=== PATIENT | female | born 1965 | race Hispanic/Latino ===

== ENCOUNTER 2017-10-18 20:52 | Emergency (ER) | payer SELFPAY ==
[2017-10-18] MEDS ORDERED: LORazepam 2 MG/ML VIAL ONE (21:25)
[2017-10-18] MEDS ORDERED: LEVETIRACETAM 500 MG/5 ML VIAL IV ONE (21:25)
[2017-10-18] MEDS ORDERED: NA CHLORIDE 0.9% 100 ML IV ONE (21:27)
[2017-10-18 22:08] LABS: Glucose Level 176 mg/dL (65-120)
[2017-10-18 22:14] LABS: Bicarbonate 15 mEq/L (21-31); Potassium 3.2 mEq/L (3.6-5.0); Sodium Level 125 mEq/L (135-145)
[2017-10-18 22:21] LABS: BUN Blood Urea Nitrogen < 5 mg/dL (6-20)
[2017-10-18 22:24] LABS: Absolute Lymphocytes (CBC) 1.1 K/uL (0.7-4.9); Absolute Monocytes 0.6 K/uL (0.1-1.3); Absolute Neutrophil 4.9 K/uL (1.8-8.0); Basophils % 0.6 % (0-1.3); Eosinophils % 0.4 % (0-4.4); Hematocrit 32.4 % (36.0-45.0); Lymphocytes % 16.7 % (15.3-44.8); MCH 34.5 pg (27.0-35.0); MCV 101.2 fL (80-100); MPV 10.6 fL (7.6-11.3); Monocytes % 8.7 % (3.3-12.3); RBC Red Blood Cell Count 3.21 M/uL (3.86-4.86)
[2017-10-18 22:27] LABS: Blood Morphology Comment NOT SEEN (NOT SEEN); Platelet Estimate DECR; Urine White Blood Cell Casts OK
[2017-10-18] MEDS ORDERED: FENTANYL CITR 100 MCG/2 ML ONE (22:36)
--- NOTE | 2017-10-19 00:13 | EDPHYS ---
Physician Documentation [facility] Name: Sindy Palmer Age: 51 yrs Sex: Female : 1965 Arrival Date: 10/18/2017 Time: 21:04 Bed 24 Private MD: ED Physician Anam Foster HPI: 10/19 00:06 This 51 yrs old Female presents to ER via EMS with unknown complaint. gs 00:06 The patient presents with a history of multiple seizures, a total of 2. Character of gs seizure(s): Loss of consciousness: the patient experienced loss of consciousness, Motor activity: generalized, Incontinence: none. Seizure onset: just prior to arrival. Seizure Hx: Cause: alcohol abuse history. Associated injury: Head/face: lower lip, abrasion, laceration, Right upper extremity: anterior aspect of right shoulder. The patient has experienced similar episodes in the past, a few times. 00:07 Context: occurred at home, occurred while the patient was at rest, in bed. gs 00:07 says was sick last week and stopped drinking. 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 - Social history:: Smoking status: unknown. ROS: 10/19 00:06 All other systems are negative. gs Exam: 00:06 Head/Face: Normocephalic, atraumatic. Eyes: Pupils equal round and reactive to light, gs extra-ocular motions intact. Lids and lashes normal. Conjunctiva and sclera are non-icteric and not injected. Cornea within normal limits. Periorbital areas with no swelling, redness, or edema. Neck: Trachea midline, no thyromegaly or masses palpated, and no cervical lymphadenopathy. Supple, full range of motion without nuchal rigidity, or vertebral point tenderness. No Meningismus. Chest/axilla: Normal chest wall appearance and motion. Nontender with no deformity. No lesions are appreciated. Cardiovascular: Regular rate and rhythm with a normal S1 and S2. No gallops, murmurs, or rubs. Normal PMI, no JVD. No pulse deficits. Respiratory: Lungs have equal breath sounds bilaterally, clear to auscultation and percussion. No rales, rhonchi or wheezes noted. No increased work of breathing, no retractions or nasal flaring. Abdomen/GI: Soft, non-tender, with normal bowel sounds. No distension or tympany. No guarding or rebound. No evidence of tenderness throughout. Back: No spinal tenderness. No costovertebral tenderness. Full range of motion. 00:06 Constitutional: The patient appears awake, lethargic. 00:07 Skin: Warm, dry with normal turgor. Normal color with no rashes, no lesions, and no gs evidence of cellulitis. MS/ Extremity: Pulses equal, no cyanosis. Neurovascular intact. Full, normal range of motion. 00:07 Head/face: Exam is negative for acute changes, obvious evidence of injury or deformity. 00:07 Eyes: Sclera: icterus, is not appreciated. 00:07 ENT: Mouth: Lips: lacerated. 00:07 Musculoskeletal/extremity: Joints: the right shoulder displays painful range of motion, tenderness. 00:07 Neuro: Mentation: slow to respond, confused, post ictal, Cranial nerves: no acute changes, Motor: moves all fours, Sensation: no obvious gross deficits, seizure activity, is not displayed by the patient. Vital Signs: 10/18 21:15 BP 142 / 72; Pulse 106; Resp 16; Temp 98.6(O); Pulse Ox 100% on R/A; Weight 49.9 kg mb3 (R); Height 5 ft. 0 in. (152.40 cm); Pain 7/10; 22:20 BP 107 / 64; Pulse 101; Resp 17; Pulse Ox 99% ; mb3 10/19 00:07 BP 121 / 68; Pulse 108; Resp 16; Pulse Ox 97% on R/A; mb3 01:24 BP 117 / 66; Pulse 103; Resp 14; Pulse Ox 97% on R/A; mb3 02:02 BP 127 / 75; Pulse 101; Resp 14; Temp 98.6; Pulse Ox 98% on R/A; mb3 10/18 21:15 Body Mass Index 21.48 (49.90 kg, 152.40 cm) mb3 MDM: 10/18 21:11 Patient medically screened. gs 10/19 00:07 Differential diagnosis: cerebral vascular accident, cardiac arrhythmia, seizure, TIA. Data reviewed: vital signs, nurses notes. Response to treatment: the patient's symptoms have markedly improved after treatment, the patient's condition has returned to base line, and as a result, I will admit patient. 00:12 ED course: started feeling ill last week stopped drinking has vomiting and diarrhea gs better . 10/18 21:11 Order name: Basic Metabolic Panel; Complete Time: 22:29 10/18 21:11 Order name: CBC with Diff; Complete Time: 22:29 10/18 21:53 Order name: Chest Single View XRAY 10/18 21:53 Order name: Shoulder Right (2 View) XRAY 10/18 22:28 Order name: CBC Smear Scan; Complete Time: 22:29 EDMS 10/18 22:34 Order name: CT Head Brain wo Cont 10/18 21:11 Order name: Cardiac monitoring; Complete Time: 21:17 10/18 21:11 Order name: EKG - Nurse/Tech; Complete Time: 21:53 10/18 21:11 Order name: IV Saline Lock; Complete Time: 21:17 10/18 21:11 Order name: Labs collected and sent; Complete Time: 21:35 10/18 21:11 Order name: O2 Per Protocol; Complete Time: 21:17 10/18 21:11 Order name: O2 Sat Monitoring; Complete Time: 21:17 10/18 21:11 Order name: Urine Dipstick-Ancillary (obtain specimen) Administered Medications: 10/18 21:34 Drug: Keppra 1000 mg Route: IV; Rate: calculated rate; Site: left forearm; mb3 22:24 Follow up: Response: No adverse reaction; IV Status: Completed infusion mb3 21:34 Drug: Ativan 1 mg Route: IVP; Site: left forearm; mb3 22:24 Follow up: Response: No adverse reaction mb3 22:38 Drug: fentaNYL (PF) 50 mcg Route: IVP; Site: left forearm; mb3 10/19 00:07 Follow up: Response: No adverse reaction mb3 01:21 Drug: fentaNYL (PF) 50 mcg Route: IVP; Site: left forearm; mb3 Disposition: 10/19/17 02:[address] [facility]. Diagnosis are Alcohol dependence with withdrawal, Epilepsy and recurrent seizures, 2-part fracture of surgical neck of humerus. - Reason for transfer: Higher level of care. - Accepting physician is [facility]. - Condition is Stable. - Problem is new. - Symptoms have improved. Critical care time excluding procedures: 00:07 Critical care time: Bedside Care: 10 minutes, Consultation: 10 minutes, Family gs Intervention: 10 minutes. Total time: 30 minutes Signatures: Dispatcher [employer] EDAnam Sawant MD MD Christiano Zuniga RN RN mb3 Corrections: (The following items were deleted from the chart) 02:06 00:12 Hospitalization Ordered by Yvan Light MD for Inpatient Admission. Preliminary diagnosis is Epileptic seizures related to external causes, not intractable, without status epilepticus; Alcohol dependence with withdrawal. Bed requested for Telemetry/MedSurg (Inpatient). Status is Inpatient Admission. Condition is Stable. Problem is new. Symptoms have improved. UTI on Admission? No. 02:08 02:08 10/19/2017 02:[address] [facility]. Diagnosis is Alcohol dependence with withdrawal; Epilepsy and recurrent seizures. Reason for transfer: Higher level of care. Accepting physician is [facility]. Condition is Stable. Problem is new. Symptoms have improved. 02:53 02:08 10/19/2017 02:[address] [facility]. Diagnosis is mb3 Alcohol dependence with withdrawal; Epilepsy and recurrent seizures; 2-part fracture of surgical neck of humerus. Reason for transfer: Higher level of care. Accepting physician is [facility]. Condition is Stable. Problem is new. Symptoms have improved.
--- NOTE | 2017-10-19 00:13 | ER ---
Nurse's Notes [facility] Name: Sindy Palmer Age: 51 yrs Sex: Female : 1965 Arrival Date: 10/18/2017 Time: 21:04 Bed 24 Private MD: Diagnosis: Alcohol dependence with withdrawal;Epilepsy and recurrent seizures;2-part fracture of surgical neck of humerus Presentation: 10/18 21:04 Presenting complaint: EMS states: stated called for seizure, pt non communicative at mb3 scene. significant other at side, saying pt started jerking and got real stiff. During assessment pt had tonic clonic seizure, stiffened up for aprox 45 seconds then jerking for 1 minute. Transition of care: patient was not received from another setting of care. Onset of symptoms was October 18, 2017 at 20:10. Initial Sepsis Screen: Does the patient meet any 2 criteria? No. Patient's initial sepsis screen is negative. Does the patient have a suspected source of infection? No. Patient's initial sepsis screen is negative. Care prior to arrival: IV initiated. 20 GA, in the left forearm, Glucose check: 169. 21:04 Method Of Arrival: EMS: [facility] mb3 21:04 Acuity: ELICEER 3 mb3 Triage Assessment: 21:09 General: Appears distressed, uncomfortable, Behavior is cooperative, drowsy. Pain: mb3 Denies pain. Pain: Complains of pain in right arm. EENT: Sclera/Cornea yellow. Neuro: Seizure activity reported prior to arrival. Type of seizure: tonic-clonic seizure. Seizure lasted approximately 2 minutes. Patient is post-ictal at this time. Cardiovascular: Heart tones present Capillary refill < 3 seconds Pulses are all present. Respiratory: Airway is patent Respiratory effort is even, unlabored, Respiratory pattern is regular, symmetrical, Breath sounds are clear bilaterally. GI: No signs and/or symptoms were reported involving the gastrointestinal system. Abdomen is flat, Bowel sounds present X 4 quads. : No signs and/or symptoms were reported regarding the genitourinary system. Musculoskeletal: Capillary refill < 3 seconds, Range of motion: limited in right shoulder and right elbow Reports pain in right arm, shoulder and elbow. 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 - Social history:: Smoking status: unknown. Screenin:00 Abuse screen: Denies threats or abuse. Nutritional screening: No deficits noted. mb3 Tuberculosis screening: No symptoms or risk factors identified. Fall Risk Fall in past 12 months (25 points). Secondary diagnosis (15 points) IV access (20 points). Ambulatory Aid- None/Bed Rest/Nurse Assist (0 pts). Gait- Normal/Bed Rest/Wheelchair (0 pts) Mental Status- Oriented to own ability (0 pts). Total Candelaria Fall Scale indicates High Risk Score (45 or more points). Fall prevention measures have been instituted. Side Rails Up X 2 Placed Close to Nursing Station Frequent Obs/Assessments Occuring. Assessment: 20:51 General: see triage assessment. mb3 22:03 Reassessment: No changes from previously documented assessment. Patient and/or family mb3 updated on plan of care and expected duration. Pain level reassessed. Patient is alert, oriented x 3, equal unlabored respirations, skin warm/dry/pink. 23:09 Reassessment: No changes from previously documented assessment. Patient and/or family mb3 updated on plan of care and expected duration. Pain level reassessed. Patient is alert, oriented x 3, equal unlabored respirations, skin warm/dry/pink. 10/19 00:21 Reassessment: No changes from previously documented assessment. Patient and/or family mb3 updated on plan of care and expected duration. Pain level reassessed. Patient is alert, oriented x 3, equal unlabored respirations, skin warm/dry/pink. 01:32 Reassessment: Patient appears in no apparent distress at this time. No changes from mb3 previously documented assessment. Patient and/or family updated on plan of care and expected duration. Pain level reassessed. Patient is alert, oriented x 3, equal unlabored respirations, skin warm/dry/pink. 02:41 Reassessment: Report called to Freida Zarate RN at 0206, SBAR used, all questions mb3 answered. . Vital Signs: 10/18 21:15 BP 142 / 72; Pulse 106; Resp 16; Temp 98.6(O); Pulse Ox 100% on R/A; Weight 49.9 kg mb3 (R); Height 5 ft. 0 in. (152.40 cm); Pain 7/10; 22:20 BP 107 / 64; Pulse 101; Resp 17; Pulse Ox 99% ; mb3 10/19 00:07 BP 121 / 68; Pulse 108; Resp 16; Pulse Ox 97% on R/A; mb3 01:24 BP 117 / 66; Pulse 103; Resp 14; Pulse Ox 97% on R/A; mb3 02:02 BP 127 / 75; Pulse 101; Resp 14; Temp 98.6; Pulse Ox 98% on R/A; mb3 10/18 21:15 Body Mass Index 21.48 (49.90 kg, 152.40 cm) mb3 ED Course: 10/18 21:04 Patient arrived in ED. mb3 21:08 Triage completed. mb3 21:10 Anam Foster MD is Attending Physician. gs 21:33 Christiano Zuniga RN is Primary Nurse. mb3 22:01 Patient has correct armband on for positive identification. Placed in gown. Bed in low mb3 position. Call light in reach. Side rails up X 1. cafeteria monitor on. Pulse ox on. NIBP on. 22:02 Arm band placed on right wrist. mb3 22:08 Patient moved to radiology via stretcher. mh1 22:11 Patient moved back from radiology. mh1 22:12 X-ray completed. Patient tolerated procedure well. bb2 22:12 Chest Single View XRAY In Process Unspecified. EDMS 22:13 Shoulder Right (2 View) XRAY In Process Unspecified. EDMS 22:15 Inserted saline lock: 20 gauge in left forearm, using aseptic technique. mb3 22:44 Notified ED physician of a critical lab result(s). Platelet 60,000. ed1 22:52 CT completed. Patient moved back from CT. vm2 22:53 CT Head Brain wo Cont In Process Unspecified. EDMS 10/19 00:11 Yvan Light MD is Hospitalizing Provider. gs 01:26 Sling applied to. mb3 02:39 No provider procedures requiring assistance completed. Patient transferred, IV remains mb3 in place. Administered Medications: 10/18 21:34 Drug: Keppra 1000 mg Route: IV; Rate: calculated rate; Site: left forearm; mb3 22:24 Follow up: Response: No adverse reaction; IV Status: Completed infusion mb3 21:34 Drug: Ativan 1 mg Route: IVP; Site: left forearm; mb3 22:24 Follow up: Response: No adverse reaction mb3 22:38 Drug: fentaNYL (PF) 50 mcg Route: IVP; Site: left forearm; mb3 10/19 00:07 Follow up: Response: No adverse reaction mb3 01:21 Drug: fentaNYL (PF) 50 mcg Route: IVP; Site: left forearm; mb3 Outcome: 00:12 Decision to Hospitalize by Provider. gs 02:08 ER care complete, transfer ordered by . 02:16 Instructed on the need for transfer. mb3 02:39 Transferred by ground EMS to [facility], Transfer form mb3 completed. X-rays sent w/ patient. 02:39 Condition: stable 02:53 Patient left the ED. mb3 Signatures: Dispatcher [employer] EDMS Prachi Amin 1 Kiya Stone LVN LVN ed1 Tawana Gutierrez 2 Anam Foster MD MD Alethea Reyes 2 Christiano Zuniga, RN RN mb3
[2017-10-19] MEDS ORDERED: FENTANYL CITR 100 MCG/2 ML ONE (01:19)
[2017-10-19 02:59] VITALS: TEMP 98.6
[2017-10-19 03:04] VITALS: BP 127/75; O2SAT 98
--- NOTE | 2017-10-19 06:37 | RAD REPORT ---
EXAM DESCRIPTION: RAD - Chest Single View - 10/18/2017 10:14 pm CLINICAL HISTORY: Seizure, shortness of breath COMPARISON: None. TECHNIQUE: AP portable chest image was obtained 2200 hours . FINDINGS: Lungs are clear. Heart and vasculature are normal. No measurable pleural effusion and no p neumothorax. No gross bony abnormality seen. No acute aortic findings suspected. IMPRESSION: No acute cardiopulmonary process.
--- NOTE | 2017-10-19 06:38 | RAD REPORT ---
EXAM DESCRIPTION: Shoulder Right 2 View - 10/18/2017 10:13 pm CLINICAL HISTORY: Fall, seizure, shoulder pain A preliminary report was provided at the time of the study. COMPARISON: None. TECHNIQUE: Two views the right shoulder obtained both appearing to be internal rotation views. FINDINGS: Fracture of the proximal humerus is present. This is in proximity to the surgical neck. Th ere is likely a minimal amount of impaction. No dislocation of the humeral head. Pathologic etiology is not suspected. Clavicle and AC joint are normal. IMPRESSION: Proximal right humerus fracture with no measurable angulation or distraction.
--- NOTE | 2017-10-19 07:01 | RAD REPORT ---
EXAM DESCRIPTION: CT - Head Brain Wo Cont - 10/19/2017 2:04 am CLINICAL HISTORY: Seizure A preliminary written report was provided at the time of the study, and the report was reviewed prio r to final dictation. COMPARISON: CT head August 2014 TECHNIQUE: Axial 5 mm thick images of the head were obtained without IV contrast. All CT scans are performed using dose optimization technique as appropriate and may include automated exposure control or mA/KV adjustment according to patient size. FINDINGS: No intracranial hemorrhage, mass, edema or shift of mid-line structures. No acute cortical infarction. Early atrophy and chronic ischemic changes are evident. No abnormal extra-axial fluid co llections. Ventricles are in proportion to volume loss. Physiologic and arterial calcifications are s een. Intracranial findings are not significantly different from the comparison. Mastoid air cells and visualized portions of the paranasal sinuses are clear. No acute bony findings. IMPRESSION: No acute intracranial finding. The above detailed findings are similar to the 2015 study .
== END 2017-10-19 02:53 | disposition short-term general hospital (02) ==
LOC: ER 20:52
DX: F10.239 Alcohol dependence with withdrawal, unspecified (principal); S42.221A 2-part displaced fracture of surgical neck of right humerus, initial encounter for closed fracture; X58.XXXA Exposure to other specified factors, initial encounter; Y93.9 Activity, unspecified; Y92.009 Unspecified place in unspecified non-institutional (private) residence as the place of occurrence of the external cause
CPT/HCPCS: 36415; 70450; 71045; 80048; 85025; 96365; 96375; 99285; J1953; J3010

== ENCOUNTER 2018-04-01 17:28 | Emergency (ER) | payer SELFPAY ==
--- NOTE | 2018-04-01 18:24 | RAD REPORT ---
EXAM DESCRIPTION: CT - Head Brain Wo Cont - 04/01/2018 6:05 pm CLINICAL HISTORY: Confusion COMPARISON: October 2017 TECHNIQUE: Computed axial tomography of the head was obtained. IV contrast was not requested. All CT scans are performed using dose optimization technique as appropriate and may include automated exposure control or mA/KV adjustment according to patient size. FINDINGS: Some images are degraded by patient motion artifact. An intracranial bleed is not seen . The ventricles are normal in caliber. No extra-axial fluid collection is noted. Fluid within the sinuses/ mastoids is not seen. IMPRESSION: No gross intracranial abnormality is seen. If patient's symptoms persist MRI of the bra in would be recommended.
--- NOTE | 2018-04-01 18:25 | RAD REPORT ---
EXAM DESCRIPTION: Moris Single View04/01/2018 6:03 pm CLINICAL HISTORY: Chest pain COMPARISON: none FINDINGS: The lungs appear clear of acute infiltrate. The heart is normal size IMPRESSION: No acute abnormalities displayed
[2018-04-01 18:28] LABS: Protime INR 4.8
[2018-04-01] MEDS ORDERED: VITAMIN K (ADULT) 10 MG/ML ONE (18:38)
[2018-04-01 18:42] LABS: Absolute Lymphocytes (CBC) 0.7 K/uL (0.7-4.9); Absolute Monocytes 1.2 K/uL (0.1-1.3); Absolute Neutrophil 12.7 K/uL (1.8-8.0); Basophils % 0.6 % (0-1.3); Eosinophils % 0.6 % (0-4.4); Lymphocytes % 4.6 % (15.3-44.8); MCH 37.3 pg (27.0-35.0); MCV 101.3 fL (80-100); MPV 7.9 fL (7.6-11.3); Monocytes % 8.4 % (3.3-12.3); RBC Red Blood Cell Count 2.37 M/uL (3.86-4.86)
[2018-04-01 19:11] LABS: Bilirubin Direct > 16.0 mg/dL (0-0.2); Bilirubin Total > 25.0 mg/dL (0.2-1.0)
[2018-04-01] MEDS ORDERED: NA CHLORIDE 0.9% 1,000 ML ONE (19:16)
[2018-04-01] MEDS ORDERED: CEFTRIAXONE/SWI 1gm 1 GM/10 ML SYR ONE (19:16)
[2018-04-01 19:17] LABS: Potassium 3.8 mmol/L (3.5-5.1)
[2018-04-01 19:18] LABS: ALT/SGPT 70 U/L (12-78); AST/SGOT 180 U/L (15-37); BUN Blood Urea Nitrogen 64 mg/dL (7-18); Bicarbonate 18 mmol/L (21-32); Glucose Level 98 mg/dL (74-106)
[2018-04-01 19:19] LABS: Albumin 1.9 g/dL (3.4-5.0); Alkaline Phosphatase 180 U/L (45-117); Protein, Total 6.2 g/dL (6.4-8.2)
--- NOTE | 2018-04-01 19:19 | EDPHYS ---
Physician Documentation [facility] Name: Sindy Palmer Age: 52 yrs Sex: Female : 1965 Arrival Date: 04/01/2018 Time: 17:35 Bed 5 Private MD: ED Physician Anam Foster HPI: 04/01 18:11 This 52 yrs old Female presents to ER via EMS with complaints of General gs Weakness, Jaundice. 18:11 The patient presents to the emergency department with weakness of the entire body, gs generalized weakness. Onset: The symptoms/episode began/occurred 1 week(s) ago. Associated signs and symptoms: Pertinent positives: altered mental status, Pertinent negatives: fever. Severity of symptoms: At their worst the symptoms were severe in the emergency department the symptoms are unchanged. It is unknown whether or not the patient has had similar symptoms in the past. 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 - Social history:: Smoking status: unknown The patient lives at home. - Ebola Screening: : No symptoms or risks identified at this time. ROS: 18:11 Unable to obtain ROS due to patient's speech is incomprehensible. gs Exam: 18:11 Head/Face: Normocephalic, atraumatic. ENT: Nares patent. No nasal discharge, no gs septal abnormalities noted. Tympanic membranes are normal and external auditory canals are clear. Oropharynx with no redness, swelling, or masses, exudates, or evidence of obstruction, uvula midline. Mucous membranes moist. 18:11 Neck: Trachea midline, no thyromegaly or masses palpated, and no cervical lymphadenopathy. Supple, full range of motion without nuchal rigidity, or vertebral point tenderness. No Meningismus. Chest/axilla: Normal chest wall appearance and motion. Nontender with no deformity. No lesions are appreciated. Cardiovascular: Regular rate and rhythm with a normal S1 and S2. No gallops, murmurs, or rubs. Normal PMI, no JVD. No pulse deficits. Respiratory: Lungs have equal breath sounds bilaterally, clear to auscultation and percussion. No rales, rhonchi or wheezes noted. No increased work of breathing, no retractions or nasal flaring. 18:11 Back: No spinal tenderness. No costovertebral tenderness. Full range of motion. MS/ Extremity: Pulses equal, no cyanosis. Neurovascular intact. Full, normal range of motion. 18:11 Constitutional: The patient appears awake. 18:11 Eyes: Sclera: icterus, is present. 18:11 Abdomen/GI: Inspection: distension, that is mild. 18:11 Skin: Appearance: Color: jaundiced. 18:11 Neuro: Orientation: to person, place, Motor: moves all fours, Sensation: no obvious gross deficits. Vital Signs: 17:42 BP 121 / 75; Pulse 88; Resp 13 S; Temp 97.2(TE); Pulse Ox 100% on R/A; Pain 0/10; jl7 18:30 BP 119 / 62; Pulse 81; Resp 16; Pulse Ox 100% on R/A; sv 19:28 BP 112 / 68; Pulse 85; Resp 17; Pulse Ox 100% ; ea 20:08 BP 115 / 61; Pulse 83; Resp 18; Pulse Ox 100% ; ea 20:34 Temp 98(TE); ea MDM: 17:35 Patient medically screened. 19:17 Data reviewed: vital signs, nurses notes. Response to treatment: There is no appreciated change of the patient's symptoms at this time. 04/01 17:36 Order name: Basic Metabolic Panel 04/01 17:36 Order name: Blood Culture Adult (2) 04/01 17:36 Order name: CBC with Diff 04/01 17:36 Order name: Lactate; Complete Time: 18:48 04/01 17:36 Order name: LFT's 04/01 17:36 Order name: Lipase 04/01 17:36 Order name: Procalcitonin 04/01 17:36 Order name: Protime (+inr); Complete Time: 18:32 04/01 17:36 Order name: Urine Microscopic Only 04/01 17:36 Order name: AMMONIA; Complete Time: 18:37 04/01 18:28 Order name: Type And Screen 04/01 18:34 Order name: Urine Dipstick--Ancillary (enter results) nm 04/01 18:41 Order name: Tylenol Level 04/01 18:41 Order name: Acetaminophen Level EDMN 04/01 17:36 Order name: Chest Single View XRAY; Complete Time: 18:27 04/01 17:36 Order name: Accucheck; Complete Time: 17:49 gs 04/01 17:36 Order name: Cardiac monitoring; Complete Time: 17:50 04/01 17:36 Order name: EKG - Nurse/Tech; Complete Time: 17:50 04/01 17:36 Order name: IV Saline Lock - Large Bore; Complete Time: 17:50 04/01 17:36 Order name: Labs collected and sent; Complete Time: 17:50 04/01 17:36 Order name: CT Head Brain wo Cont; Complete Time: 18:27 04/01 18:42 Order name: Occult Blood--Ancillary 04/01 18:48 Order name: Manual Differential EDMN 04/01 18:51 Order name: Hepatitis Panel 04/01 18:59 Order name: EKG; Complete Time: 18:59 sv 04/01 19:16 Order name: ABG 04/01 19:50 Order name: Urine Culture EDMN 04/01 17:36 Order name: O2 Per Protocol; Complete Time: 17:49 04/01 17:36 Order name: O2 Sat Monitoring; Complete Time: 17:49 04/01 17:36 Order name: Urine Dipstick-Ancillary (obtain specimen); Complete Time: 18:30 04/01 18:30 Order name: Straight Cath - Urine; Complete Time: 18:30 aa5 Administered Medications: 18:35 Drug: Vitamin K1 10 mg Route: Sub-Q; Site: left upper arm; sv 18:42 Follow up: Response: No adverse reaction sv 19:17 Drug: NS 0.9% 1000 ml Route: IV; Rate: 1 bolus; Site: left hand; jd3 20:35 Follow up: Response: No adverse reaction; IV Status: Completed infusion; IV Intake: ea 1000ml 19:17 Drug: Rocephin - (cefTRIAXone) 1 grams Route: IVPB; Infused Over: 30 mins; Site: left jd3 hand; 20:35 Follow up: Response: No adverse reaction; IV Status: Completed infusion ea Point of Care Testing: Blood Glucose: 17:47 Blood Glucose: 125 mg/dL; jl7 Guaiac: 18:30 Stool Guaiac: Positive; Stool Hemoccult Control: Pass; sv 18:[address] Kristin adames Ranges: Critical Glucose Levels:Adult <50 mg/dl or >400 mg/dl <40 mg/dl or >180 mg/dl Disposition: 04/01/18 19:18 Transfer ordered to [facility]. Diagnosis is Acute and subacute hepatic failure without coma. - Reason for transfer: Higher level of care. - Accepting physician is omranian. - Condition is Stable. - Problem is new. - Symptoms are unchanged. Signatures: Dispatcher [employer] Aurelia Noel, RN RN Lizbet Arroyo, RN RN aa5 Twila Tristan RN RN jl7 Ethel Jung RN RN Anam Oseguera MD MD gs Davies, Jonathon, RN RN jd3 Corrections: (The following items were deleted from the chart) 21:01 19:18 04/01/2018 19:18 Transfer ordered to [facility]. Diagnosis is ea Acute and subacute hepatic failure without coma. Reason for transfer: Higher level of care. Accepting physician is omranian. Condition is Stable. Problem is new. Symptoms are unchanged. gs
--- NOTE | 2018-04-01 19:19 | ER ---
Nurse's Notes [facility] Name: Sindy Palmer Age: 52 yrs Sex: Female : 1965 Arrival Date: 04/01/2018 Time: 17:35 Bed 5 Private MD: Diagnosis: Acute and subacute hepatic failure without coma Presentation: 04/01 17:39 Presenting complaint: EMS states: She lives at home by herself, son called 911 because jl7 she hasn't been feeling good for 2 months. Transition of care: patient was not received from another setting of care. Onset of symptoms is unknown. Risk Assessment: Do you want to hurt yourself or someone else? Patient reports no desire to harm self or others. Initial Sepsis Screen: Does the patient meet any 2 criteria? No. Patient's initial sepsis screen is negative. Does the patient have a suspected source of infection? No. Patient's initial sepsis screen is negative. Care prior to arrival: Medication(s) given: Normal saline infusion, 500 mL, IV initiated. 20 GA, in the right antecubital area. 17:39 Method Of Arrival: EMS: [facility] jl7 17:39 Acuity: ELIECER 2 jl7 Triage Assessment: 17:42 General: Appears ill, Behavior is cooperative, drowsy. Pain: Denies pain. EENT: No jl7 signs and/or symptoms were reported regarding the EENT system. Neuro: Level of Consciousness is obeys commands, confused, lethargic, Oriented to person, place. Cardiovascular: Patient's skin is warm and dry. Respiratory: Airway is patent Respiratory effort is even, unlabored, Respiratory pattern is regular, symmetrical. GI: No signs and/or symptoms were reported involving the gastrointestinal system. : No signs and/or symptoms were reported regarding the genitourinary system. Derm: Skin is jaundiced. 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 - Social history:: Smoking status: unknown The patient lives at home. - Ebola Screening: : No symptoms or risks identified at this time. Screenin:45 Abuse screen: Denies threats or abuse. Denies injuries from another. Tuberculosis jl7 screening: No symptoms or risk factors identified. Fall Risk Secondary diagnosis (15 points) seizures, IV access (20 points). Mental Status- Overestimates/Forgets Limitations (15 pts.). Total Candelaria Fall Scale indicates High Risk Score (45 or more points). Fall prevention measures have been instituted. Side Rails Up X 2 Placed Close to Nursing Station Frequent Obs/Assessments Occuring Family Present and informed to notify staff if the need to leave the bedside As available patient and family educated on Fall Prevention Program and Strategies. 18:37 Nutritional screening: No deficits noted. sv Assessment: 17:45 General: See triage assessment. jl7 18:30 Reassessment: Pt cleaned of incontinence and clean brief placed. sv 18:38 General: Appears in no apparent distress. comfortable, Behavior is calm, cooperative. sv Pain: Denies pain. Neuro: Level of Consciousness is obeys commands, lethargic, Oriented to person, place, Moves all extremities. Respiratory: Respiratory effort is even, unlabored, Respiratory pattern is regular, symmetrical. GI: Stools are reported to be loose, black mucous. : Urine is dark yellow. Derm: Skin is icteric, jaundiced. 19:25 General: Appears in no apparent distress. comfortable, Behavior is calm, cooperative. ea Pain: Denies pain. Neuro: Level of Consciousness is obeys commands, lethargic, Oriented to person, place. Cardiovascular: Heart tones S1 S2 present Patient's skin is warm and dry. Respiratory: Airway is patent Respiratory effort is even, unlabored, Respiratory pattern is regular, symmetrical, Breath sounds are clear bilaterally. GI: Abdomen is distended, noted to have ascites, bruised on right upper quadrant, left upper quadrant, right lower quadrant and left lower quadrant Bowel sounds present X 4 quads. Derm: Skin is jaundiced. Musculoskeletal: Circulation, motion, and sensation intact. 20:03 Reassessment: Report called to Jaclyn ENCISO at [facility]. ea 20:33 Reassessment: Patient and/or family updated on plan of care and expected duration. Pain ea level reassessed. Patient is alert, oriented x 3, equal unlabored respirations, skin warm/dry/pink. [facility] at facility for transport. 20:40 Reassessment: Patient and/or family updated on plan of care and expected duration. Pain ea level reassessed. Patient is alert, oriented x 3, equal unlabored respirations, skin warm/dry/pink. Report given to [facility]. Pt left with [facility] per stretcher. Vital Signs: 17:42 BP 121 / 75; Pulse 88; Resp 13 S; Temp 97.2(TE); Pulse Ox 100% on R/A; Pain 0/10; jl7 18:30 BP 119 / 62; Pulse 81; Resp 16; Pulse Ox 100% on R/A; sv 19:28 BP 112 / 68; Pulse 85; Resp 17; Pulse Ox 100% ; ea 20:08 BP 115 / 61; Pulse 83; Resp 18; Pulse Ox 100% ; ea 20:34 Temp 98(TE); ea ED Course: 17:35 Patient arrived in ED. aa5 17:35 Anam Foster MD is Attending Physician. gs 17:35 Missed attempt(s): 22 gauge in left antecubital area. Bleeding controlled, band aid sv applied, catheter tip intact. 17:38 Twila Tristan, RN is Primary Nurse. jl7 17:40 Triage completed. jl7 17:40 Initial lab(s) drawn, by ne, sent to lab. Inserted saline lock: 22 gauge in left hand, sv using aseptic technique. Blood collected. Flushed left hand with 5 ml normal saline. 17:42 Arm band placed on right wrist. jl7 17:45 Patient has correct armband on for positive identification. Placed in gown. Bed in low jl7 position. Call light in reach. Side rails up X2. nuclear monitoring technician on. Pulse ox on. NIBP on. Warm blanket given. 17:45 Maintain EMS IV. Dressing intact. Good blood return noted. Site clean \T\ dry. Gauge \T\ jl 7 site: 20 right AC. 18:03 Chest Single View XRAY In Process Unspecified. EDMS 18:03 CT completed. Patient moved to CT via stretcher. Patient moved back from CT. cw1 18:04 CT Head Brain wo Cont In Process Unspecified. EDMS 18:12 Patient moved back from CT. sv 18:18 Primary Nurse role handed off by Twila Tristan, RN sv 18:18 Aurelia Myles, ZARIA is Primary Nurse. sv 18:30 Straight cath inserted, using sterile technique, 16 Fr. Specimen obtained. Returned aa5 dyana urine. Patient tolerated well. 18:42 Occult Blood--Ancillary Sent. sv 18:43 Tylenol Level Sent. sv 18:48 T\T\S collected, blood band applied to patient. jb1 19:05 Report given to Ethel ENCISO and Bharathi ENCISO. sv 19:06 Primary Nurse role handed off by Aurelia Myles RN sv 19:08 EKG done, by ED staff, reviewed by Anam Foster MD. jb1 19:25 Ethel Jung, RN is Primary Nurse. ea 19:31 No provider procedures requiring assistance completed. Patient transferred, IV remains ea in place. Administered Medications: 18:35 Drug: Vitamin K1 10 mg Route: Sub-Q; Site: left upper arm; sv 18:42 Follow up: Response: No adverse reaction sv 19:17 Drug: NS 0.9% 1000 ml Route: IV; Rate: 1 bolus; Site: left hand; jd3 20:35 Follow up: Response: No adverse reaction; IV Status: Completed infusion; IV Intake: ea 1000ml 19:17 Drug: Rocephin - (cefTRIAXone) 1 grams Route: IVPB; Infused Over: 30 mins; Site: left jd3 hand; 20:35 Follow up: Response: No adverse reaction; IV Status: Completed infusion ea Point of Care Testing: Blood Glucose: 17:47 Blood Glucose: 125 mg/dL; jl7 Guaiac: 18:30 Stool Guaiac: Positive; Stool Hemoccult Control: Pass; sv 18:[address] Foster sv Ranges: Intake: 20:35 IV: 1000ml; Total: 1000ml. ea Outcome: 19:18 ER care complete, transfer ordered by . 19:20 Instructed on the need for transfer. ea 20:40 Transferred by ground EMS to [facility], Transfer form completed. ea 20:40 Condition: stable 21:01 Patient left the ED. ea Signatures: Dispatcher [employer] EDMS Buddy Granado [email or web address] Aurelia Myles, Lizbet Murray RN RN RN [email or web address] Tuyet Howell Jahala, RN RN jl7 Ethel Jung RN RN ea Starr, Gregory, MD MD gs Davies, Jonathon, RN RN jd3
[2018-04-01 19:20] LABS: Lipase 830 U/L (73-393)
[2018-04-01 19:22] LABS: Sodium Level 113 mmol/L (136-145)
[2018-04-01 19:34] LABS: Platelet Estimate DECR
[2018-04-01 19:35] LABS: Blood Morphology Comment NOTED (NOT SEEN); Hypochromasia 1+; Ovalocytes 1+; Poikilocytosis 1+
[2018-04-01 19:48] LABS: Urine Bacteria 20-50 /HPF (<20); Urine Culture Reflex Order REFLEXED; Urine RBC NONE SEEN /HPF (NONE SEEN)
[2018-04-01 19:49] LABS: Urine Amorphous Sediment 1+ /HPF (NONE SEEN)
[2018-04-01 20:36] LABS: Arterial Blood Carboxyhemoglob 1.2 % (0-1.5); Blood Gas Oxyhemoglobin 96.2 % (94-97); Blood O2 Saturation 97.4 % (92-98.5)
[2018-04-01 20:58] LABS: Urine Blood TRACE (NEG); Urine Glucose TRACE (NEG); Urine Protein NEGATIVE (NEG); Urine Specific Gravity 1.015 (1.005-1.030); Urine pH 5.5 (5.0-7.0)
[2018-04-01 21:05] VITALS: O2SAT 100
[2018-04-01 21:09] VITALS: BP 115/61
[2018-04-01 21:10] VITALS: TEMP 98
--- NOTE | 2018-04-02 19:15 | EKG ---
Test Date: 2018-04-01 Test Time: 19:06:06 Garden Consultant: LUCINA MEASUREMENT RESULTS: Intervals: Rate: 84 WA: 188 QRSD: 98 QT: 386 QTc: 456 Pixley: P: 41 WA: 188 QRS: 36 T: 34 INTERPRETIVE STATEMENTS: Normal sinus rhythm Cannot rule out Anterior infarct, age undetermined Abnormal ECG Compared to ECG 08/06/2014 22:57:45 Myocardial infarct finding now present Sinus tachycardia no longer present Electronically Signed On 04-02-18 19:14:48 CDT by Rg Olvera
[2018-04-05 19:22] LABS: HBsAG Nonreactive (Nonreactive); Hepatitis A IgM Antibody Nonreactive
== END 2018-04-01 21:01 | disposition short-term general hospital (02) ==
LOC: ER 17:28
DX: K72.00 Acute and subacute hepatic failure without coma (principal); G40.909 Epilepsy, unspecified, not intractable, without status epilepticus
CPT/HCPCS: 36415; 51702; 70450; 71045; 80048; 80074; 80076; 80329; 81003; 81015; 82140; 82805; 82962; 83605; 83690; 84145; 85025; 85610; 86850; 86900; 86901; 87040; 87077; 87086; 87088; 87186; 93005; 96365; 96372; 99285; J0696; J3430; J7030

== ENCOUNTER 2020-12-08 16:32 | Emergency (ER) | payer SELFPAY ==
--- OUTSIDE RECORDS SUMMARY | 2020-12-08 16:51 | XMS REPORT | Continuity of Care Document ---
:1965 Author Organization [facility] t Address [address] [place] [address] Care Team Providers Name Role Phone OMRANIAN Attending Clinician Unavailable OMRANIAN Admitting Clinician Unavailable Problems Condition Condition Condition Status Onset Resolution Last Treating Co mments Source Name Details Category Date Date Treatment Clinician Date Alcoholic Alcoholic Disease Active 2017-[address] [facility] cirrhosis cirrhosis 1- [facility] - of liver of liver 00:00: Medica l with with 00 [place] ascites ascites Upper GI Upper GI Disease Active 2017[facility]10 [facility] - [facility]: Medical 00 [place] EILEEN (acute EILEEN (acute Disease Active 2017-[address] kidney kidney 06-10 [facility] - injury) injury) 00:00: Medical 00 [place] CKD CKD Disease Active 2017-[address] [facility] (chronic (chronic 1 [facility] - kidney kidney 00:00: Medical disease) disease) 00 Center stage 5, stage 5, GFR less GFR less than 15 than 15 ml/min ml/min Acute Acute Disease Active 2017-[address] [facility] blood loss blood loss 1-05 [facility] - anemia anemia 00:00: Medical 00 [place] Hepatic Hepatic Disease Active 2017-[address] [facility] encephalop encephalop 1-05 [facility] - athy athy 00:00: Medical 00 [place] 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 Social History Social Habit Start Date Stop Date Quantity Comments Source History [facility] - [facility] Std Drinks Medica l Center History [facility] SHRADDHA [facility]a [facility] - Alcohol Binge Medical Willy ter Sex Assigned At [facility] Alcohol intake 2018-04-05 2018-04-05 Current drinker SHRADDHA elise [facility] - 00:00:00 00:00:00 of alcohol Medical Center (finding) History [facility] 2018-04-02 2018-04-02 5 SHRADDHA [facility]onseca [facility] - Alcohol Frequency 00:00:00 00:00:00 Medical Center Alcohol Comment 2018-04-02 2018-04-02 Patient SHRADDHA Burt kes - 00:00:00 00:00:00 Medical Center Medications This patient has no known medications. Procedures This patient has no known procedures. Plan of Care Planned Activity Planned Date Details Comments Source Future Scheduled 2020-02-[address] [facility] - Test 00:00:00 (#1) [code = [facility] INFLUENZA VACCINE (#1)] Future Scheduled 2011-12-[address] [facility] - Test 00:00:00 (procedure) [code = [facility] [id number]] Future Scheduled 1987-12-[address] [facility] - Test 00:00:00 malignant neoplasm Medical C enter of cervix (procedure) [code = [id number]] Future Scheduled [address] [facility] - Test 00:00:00 malignant neoplasm Medical C enter of breast (procedure) [code = [id number]] Future Scheduled [address] [facility] - Test 00:00:00 malignant neoplasm Medical C enter of colon (procedure) [code = [id number]] Results Test Description Test Time Test Comments Results Result Comments Source POCT-GLUCOSE METER 2018-04-19 12:02:00 Test Item Value Reference Range Interpretation Comme nts POC-GLUCOSE METER (BEAKER) (test 176 mg/dL 70-110 H TESTED AT [facility] [address] [facility] code = 1538) [facility] 7703 0 POCT-GLUCOSE [id number] 07:50:00 Test Item Value Reference Range Interpretation Comments POC-GLUCOSE METER 169 mg/dL 70-110 H TESTED AT [facility] [address] (BEAKER) (test code = [place] 1538) [id number] COMPREHENSIVE METABOLIC [id number] 06:18:00 Test Item Value Reference Range Interpretation Comments TOTAL PROTEIN 5.4 gm/dL 6.0-8.3 L (BEAKER) (test code = 770) ALBUMIN (BEAKER) 3.0 g/dL 3.5-5.0 L (test code = 1145) ALKALINE PHOSPHATASE 136 U/L 40-150 (BEAKER) (test code = 346) BILIRUBIN TOTAL 26.8 mg/dL 0.2-1.2 H (BEAKER) (test code = 377) SODIUM (BEAKER) 130 meq/L 136-145 L (test code = 381) POTASSIUM (BEAKER) 3.5 meq/L 3.5-5.1 (test code = 379) CHLORIDE (BEAKER) 94 meq/L 98-107 L (test code = 382) CO2 (BEAKER) (test 27 meq/L 22-29 code = 355) BLOOD UREA NITROGEN 86 mg/dL 7-21 H (BEAKER) (test code = 354) CREATININE (BEAKER) 1.54 mg/dL 0.57-1.25 H (test code = 358) GLUCOSE RANDOM 117 mg/dL 70-105 H (BEAKER) (test code = 652) CALCIUM (BEAKER) 8.7 mg/dL 8.4-10.2 (test code = 697) AST (SGOT) (BEAKER) 97 U/L 5-34 H (test code = 353) ALT (SGPT) (BEAKER) 79 U/L 6-55 H (test code = 347) EGFR (BEAKER) (test mL/min/1.73 INSUFFIC IENT code = 1092) sq m CLINICAL DATA T O CALCULATE ESTIM ATED GFR. Specimen markedly ictericPROTHROMBIN [id number] 06:03:00 Test Item Value Reference Range Interpretation Comments PROTIME (BEAKER) (test code = 24.8 seconds 11.7-14.7 H 759) INR (BEAKER) (test code = 370) 2.2 <=5.9 RECOMMENDED COUMADIN/WARFARIN INR THERAPY RANGESSTANDARD DOSE: 2.0 - 3.0 Includes: PROPHYLAXIS forvenous thrombosis, systemic embolization; TREATMENT for venous thrombosis and/or pulmonary embolus.HIGH RISK: Target INR is 2.5-3.5 for patients with mechanical heart valves.CBC W/PLT COUNT & AUTO DIFFERENTIAL 2018-04-19 05:58:00 Test Item Value Reference Range Interpretation Comments WHITE BLOOD CELL COUNT (BEAKER) 8.4 K/ L 3.5-10.5 (test code = 775) RED BLOOD CELL COUNT (BEAKER) 2.52 M/ L 3.93-5.22 L (test code = 761) HEMOGLOBIN (BEAKER) (test code = 8.3 GM/DL 11.2-15.7 L 410) HEMATOCRIT (BEAKER) (test code = 23.2 % 34.1-44.9 L 411) MEAN CORPUSCULAR VOLUME (BEAKER) 92.1 fL 79.4-94.8 (test code = 753) MEAN CORPUSCULAR HEMOGLOBIN 32.9 pg 25.6-32.2 H (BEAKER) (test code = 751) MEAN CORPUSCULAR HEMOGLOBIN CONC 35.8 GM/DL 32.2-35.5 H (BEAKER) (test code = 752) RED CELL DISTRIBUTION WIDTH 21.3 % 11.7-14.4 H (BEAKER) (test code = 412) PLATELET COUNT (BEAKER) (test code 64 K/CU MM 150-450 L = 756) MEAN PLATELET VOLUME (BEAKER) 11.6 fL 9.4-12.3 (test code = 754) NUCLEATED RED BLOOD CELLS (BEAKER) 0 /100 WBC 0-0 (test code = 413) NEUTROPHILS RELATIVE PERCENT 73 % (BEAKER) (test code = 429) LYMPHOCYTES RELATIVE PERCENT 9 % (BEAKER) (test code = 430) MONOCYTES RELATIVE PERCENT 13 % (BEAKER) (test code = 431) EOSINOPHILS RELATIVE PERCENT 4 % (BEAKER) (test code = 432) BASOPHILS RELATIVE PERCENT 0 % (BEAKER) (test code = 437) NEUTROPHILS ABSOLUTE COUNT 6.14 K/ L 1.56-6.13 H (BEAKER) (test code = 670) LYMPHOCYTES ABSOLUTE COUNT 0.75 K/ L 1.18-3.74 L (BEAKER) (test code = 414) MONOCYTES ABSOLUTE COUNT (BEAKER) 1.05 K/ L 0.24-0.36 H (test code = 415) EOSINOPHILS ABSOLUTE COUNT 0.33 K/ L 0.04-0.36 (BEAKER) (test code = 416) BASOPHILS ABSOLUTE COUNT (BEAKER) 0.01 K/ L 0.01-0.08 (test code = 417) IMMATURE GRANULOCYTES-RELATIVE 1 % 0-1 PERCENT (BEAKER) (test code = 2801) POCT-GLUCOSE [id number] 22:13:00 Test Item Value Reference Range Interpretation Comments POC-GLUCOSE METER 177 mg/dL 70-110 H TESTED AT [place] [address] [facility] (test code = [facility] Karen [facility] 1538) [id number] POCT-GLUCOSE [id number] 12:01:00 Test Item Value Reference Range Interpretation Comments POC-GLUCOSE METER 146 mg/dL 70-110 H TESTED AT [place] [address] ([facility]) (test code = [facility] Karen [facility] 1538) [id number] POCT-GLUCOSE [id number] 08:08:00 Test Item Value Reference Range Interpretation Comments POC-GLUCOSE METER 127 mg/dL 70-110 H TESTED AT [place] [address] ([facility]) (test code = [facility] 1538) [id number] COMPREHENSIVE METABOLIC [id number] 07:14:00 Test Item Value Reference Range Interpretation Comments TOTAL PROTEIN 5.7 gm/dL 6.0-8.3 L Specimen sligh tly (BEAKER) (test code hemolyze d = 770) ALBUMIN (BEAKER) 3.1 g/dL 3.5-5.0 L Specimen sl ightly (test code = 1145) hemolyzed ALKALINE PHOSPHATASE 155 U/L 40-150 H (BEAKER) (test code = 346) BILIRUBIN TOTAL 25.1 mg/dL 0.2-1.2 H Specimen sli ghtly (BEAKER) (test code hemolyze d = 377) SODIUM (BEAKER) 132 meq/L 136-145 L (test code = 381) POTASSIUM (BEAKER) 3.9 meq/L 3.5-5.1 Specimen slightly (test code = 379) hemolyzed CHLORIDE (BEAKER) 95 meq/L 98-107 L (test code = 382) CO2 (BEAKER) (test 25 meq/L 22-29 code = 355) BLOOD UREA NITROGEN 91 mg/dL 7-21 H (BEAKER) (test code = 354) CREATININE (BEAKER) 1.51 mg/dL 0.57-1.25 H Specimen slightly (test code = 358) hemolyzed GLUCOSE RANDOM 112 mg/dL 70-105 H (BEAKER) (test code = 652) CALCIUM (BEAKER) 8.9 mg/dL 8.4-10.2 (test code = 697) AST (SGOT) (BEAKER) 119 U/L 5-34 H Specimen slightly (test code = 353) hemolyzed ALT (SGPT) (BEAKER) 92 U/L 6-55 H Specimen slightly (test code = 347) hemolyzed EGFR (BEAKER) (test mL/min/1.73 INSUFFIC IENT code = 1092) sq m CLINICAL DATA T O CALCULATE ESTIM ATED GFR. Specimen markedly ictericPROTHROMBIN [id number] 06:19:00 Test Item Value Reference Range Interpretation Comments PROTIME (BEAKER) (test code = 24.2 seconds 11.7-14.7 H 759) INR (BEAKER) (test code = 370) 2.2 <=5.9 RECOMMENDED COUMADIN/WARFARIN INR THERAPY RANGESSTANDARD DOSE: 2.0 - 3.0 Includes: PROPHYLAXIS forvenous thrombosis, systemic embolization; TREATMENT for venous thrombosis and/or pulmonary embolus.HIGH RISK: Target INR is 2.5-3.5 for patients with mechanical heart valves.CBC W/PLT COUNT & AUTO DIFFERENTIAL 2018-04-18 06:15:00 Test Item Value Reference Range Interpretation Comments WHITE BLOOD CELL COUNT (BEAKER) 9.8 K/ L 3.5-10.5 (test code = 775) RED BLOOD CELL COUNT (BEAKER) 2.73 M/ L 3.93-5.22 L (test code = 761) HEMOGLOBIN (BEAKER) (test code = 8.8 GM/DL 11.2-15.7 L 410) HEMATOCRIT (BEAKER) (test code = 25.1 % 34.1-44.9 L 411) MEAN CORPUSCULAR VOLUME (BEAKER) 91.9 fL 79.4-94.8 (test code = 753) MEAN CORPUSCULAR HEMOGLOBIN 32.2 pg 25.6-32.2 (BEAKER) (test code = 751) MEAN CORPUSCULAR HEMOGLOBIN CONC 35.1 GM/DL 32.2-35.5 (BEAKER) (test code = 752) RED CELL DISTRIBUTION WIDTH 21.6 % 11.7-14.4 H (BEAKER) (test code = 412) PLATELET COUNT (BEAKER) (test code 74 K/CU MM 150-450 L = 756) MEAN PLATELET VOLUME (BEAKER) 11.7 fL 9.4-12.3 (test code = 754) NUCLEATED RED BLOOD CELLS (BEAKER) 0 /100 WBC 0-0 (test code = 413) NEUTROPHILS RELATIVE PERCENT 76 % (BEAKER) (test code = 429) LYMPHOCYTES RELATIVE PERCENT 9 % (BEAKER) (test code = 430) MONOCYTES RELATIVE PERCENT 10 % (BEAKER) (test code = 431) EOSINOPHILS RELATIVE PERCENT 3 % (BEAKER) (test code = 432) BASOPHILS RELATIVE PERCENT 0 % (BEAKER) (test code = 437) NEUTROPHILS ABSOLUTE COUNT 7.49 K/ L 1.56-6.13 H (BEAKER) (test code = 670) LYMPHOCYTES ABSOLUTE COUNT 0.84 K/ L 1.18-3.74 L (BEAKER) (test code = 414) MONOCYTES ABSOLUTE COUNT (BEAKER) 1.02 K/ L 0.24-0.36 H (test code = 415) EOSINOPHILS ABSOLUTE COUNT 0.33 K/ L 0.04-0.36 (BEAKER) (test code = 416) BASOPHILS ABSOLUTE COUNT (BEAKER) 0.01 K/ L 0.01-0.08 (test code = 417) IMMATURE GRANULOCYTES-RELATIVE 1 % 0-1 PERCENT (BEAKER) (test code = 2801) POCT-GLUCOSE [id number] 22:04:00 Test Item Value Reference Range Interpretation Comments POC-GLUCOSE METER 165 mg/dL 70-110 H TESTED AT [facility] [address] (BEAKER) (test code = [place] 1538) [id number] POCT-GLUCOSE [id number] 18:09:00 Test Item Value Reference Range Interpretation Comments POC-GLUCOSE METER 166 mg/dL 70-110 H TESTED AT [facility] [address] (BEAKER) (test code = [place] 1538) [id number] POCT-GLUCOSE [id number] 12:01:00 Test Item Value Reference Range Interpretation Comments POC-GLUCOSE METER 147 mg/dL 70-110 H TESTED AT [facility] [address] (BEAKER) (test code = [place] 1538) [id number] POCT-GLUCOSE [id number] 08:07:00 Test Item Value Reference Range Interpretation Comments POC-GLUCOSE METER 132 mg/dL 70-110 H TESTED AT [facility] [address] (BEAKER) (test code = [place] 1538) [id number] COMPREHENSIVE METABOLIC [id number] 07:42:00 Test Item Value Reference Range Interpretation Comments TOTAL PROTEIN 5.6 gm/dL 6.0-8.3 L (BEAKER) (test code = 770) ALBUMIN (BEAKER) 3.1 g/dL 3.5-5.0 L (test code = 1145) ALKALINE PHOSPHATASE 155 U/L 40-150 H (BEAKER) (test code = 346) BILIRUBIN TOTAL 24.8 mg/dL 0.2-1.2 H (BEAKER) (test code = 377) SODIUM (BEAKER) 132 meq/L 136-145 L (test code = 381) POTASSIUM (BEAKER) 3.3 meq/L 3.5-5.1 L (test code = 379) CHLORIDE (BEAKER) 95 meq/L 98-107 L (test code = 382) CO2 (BEAKER) (test 25 meq/L 22-29 code = 355) BLOOD UREA NITROGEN 99 mg/dL 7-21 H (BEAKER) (test code = 354) CREATININE (BEAKER) 1.86 mg/dL 0.57-1.25 H (test code = 358) GLUCOSE RANDOM 114 mg/dL 70-105 H (BEAKER) (test code = 652) CALCIUM (BEAKER) 8.7 mg/dL 8.4-10.2 (test code = 697) AST (SGOT) (BEAKER) 108 U/L 5-34 H (test code = 353) ALT (SGPT) (BEAKER) 94 U/L 6-55 H (test code = 347) EGFR (BEAKER) (test mL/min/1.73 INSUFFIC IENT code = 1092) sq m CLINICAL DATA T O CALCULATE ESTIM ATED GFR. Specimen markedly ictericPROTHROMBIN [id number] 07:27:00 Test Item Value Reference Range Interpretation Comments PROTIME (BEAKER) (test code = 24.2 seconds 11.7-14.7 H 759) INR (BEAKER) (test code = 370) 2.2 <=5.9 RECOMMENDED COUMADIN/WARFARIN INR THERAPY RANGESSTANDARD DOSE: 2.0 - 3.0 Includes: PROPHYLAXIS forvenous thrombosis, systemic embolization; TREATMENT for venous thrombosis and/or pulmonary embolus.HIGH RISK: Target INR is 2.5-3.5 for patients with mechanical heart valves.CBC W/PLT COUNT & AUTO DIFFERENTIAL 2018-04-17 07:11:00 Test Item Value Reference Range Interpretation Comments WHITE BLOOD CELL COUNT (BEAKER) 10.2 K/ L 3.5-10.5 (test code = 775) RED BLOOD CELL COUNT (BEAKER) 2.75 M/ L 3.93-5.22 L (test code = 761) HEMOGLOBIN (BEAKER) (test code = 9.0 GM/DL 11.2-15.7 L 410) HEMATOCRIT (BEAKER) (test code = 24.8 % 34.1-44.9 L 411) MEAN CORPUSCULAR VOLUME (BEAKER) 90.2 fL 79.4-94.8 (test code = 753) MEAN CORPUSCULAR HEMOGLOBIN 32.7 pg 25.6-32.2 H (BEAKER) (test code = 751) MEAN CORPUSCULAR HEMOGLOBIN CONC 36.3 GM/DL 32.2-35.5 H (BEAKER) (test code = 752) RED CELL DISTRIBUTION WIDTH 20.5 % 11.7-14.4 H (BEAKER) (test code = 412) PLATELET COUNT (BEAKER) (test code 52 K/CU MM 150-450 L = 756) MEAN PLATELET VOLUME (BEAKER) 11.6 fL 9.4-12.3 (test code = 754) NUCLEATED RED BLOOD CELLS (BEAKER) 0 /100 WBC 0-0 (test code = 413) NEUTROPHILS RELATIVE PERCENT 79 % (BEAKER) (test code = 429) LYMPHOCYTES RELATIVE PERCENT 7 % (BEAKER) (test code = 430) MONOCYTES RELATIVE PERCENT 9 % (BEAKER) (test code = 431) EOSINOPHILS RELATIVE PERCENT 4 % (BEAKER) (test code = 432) BASOPHILS RELATIVE PERCENT 0 % (BEAKER) (test code = 437) NEUTROPHILS ABSOLUTE COUNT 8.07 K/ L 1.56-6.13 H ([facility]) (test code = 670) LYMPHOCYTES ABSOLUTE COUNT 0.69 K/ L 1.18-3.74 L (AKER) (test code = 414) MONOCYTES ABSOLUTE COUNT (BEAKER) 0.89 K/ L 0.24-0.36 H (test code = 415) EOSINOPHILS ABSOLUTE COUNT 0.38 K/ L 0.04-0.36 H (AKER) (test code = 416) BASOPHILS ABSOLUTE COUNT (AKER) 0.01 K/ L 0.01-0.08 (test code = 417) IMMATURE GRANULOCYTES-RELATIVE 2 % 0-1 H PERCENT ([facility]) (test code = 2801) POCT-GLUCOSE [id number] 21:44:00 Test Item Value Reference Range Interpretation Comments POC-GLUCOSE METER 147 mg/dL 70-110 H TESTED AT [place] [address] ([facility]) (test code = [facility] 1538) [id number] POCT-GLUCOSE [id number] 17:29:00 Test Item Value Reference Range Interpretation Comments POC-GLUCOSE METER 174 mg/dL 70-110 H TESTED AT [place] [address] ([facility]) (test code = [facility] 1538) [id number] POCT-GLUCOSE [id number] 12:57:00 Test Item Value Reference Range Interpretation Comments POC-GLUCOSE METER 160 mg/dL 70-110 H TESTED AT [place] [address] ([facility]) (test code = [facility] 1538) [id number] POCT-GLUCOSE [id number] 07:47:00 Test Item Value Reference Range Interpretation Comments POC-GLUCOSE METER 193 mg/dL 70-110 H TESTED AT [place] [address] ([facility]) (test code = [facility] 1538) [id number] COMPREHENSIVE METABOLIC [id number] 07:15:00 Test Item Value Reference Range Interpretation Comments TOTAL PROTEIN 5.7 gm/dL 6.0-8.3 L ([facility]) (test code = 770) ALBUMIN ([facility]) 3.3 g/dL 3.5-5.0 L (test code = 1145) ALKALINE PHOSPHATASE 168 U/L 40-150 H ([facility]) (test code = 346) BILIRUBIN TOTAL 24.9 mg/dL 0.2-1.2 H (BEAKER) (test code = 377) SODIUM (BEAKER) 135 meq/L 136-145 L (test code = 381) POTASSIUM (BEAKER) 3.0 meq/L 3.5-5.1 L (test code = 379) CHLORIDE (BEAKER) 97 meq/L 98-107 L (test code = 382) CO2 (BEAKER) (test 24 meq/L 22-29 code = 355) BLOOD UREA NITROGEN 104 mg/dL 7-21 H (BEAKER) (test code = 354) CREATININE (BEAKER) 2.04 mg/dL 0.57-1.25 H (test code = 358) GLUCOSE RANDOM 158 mg/dL 70-105 H (BEAKER) (test code = 652) CALCIUM (BEAKER) 8.9 mg/dL 8.4-10.2 (test code = 697) AST (SGOT) (BEAKER) 129 U/L 5-34 H (test code = 353) ALT (SGPT) (BEAKER) 110 U/L 6-55 H (test code = 347) EGFR (BEAKER) (test mL/min/1.73 INSUFFIC IENT code = 1092) sq m CLINICAL DATA T O CALCULATE ESTIM ATED GFR. Specimen markedly ictericCBC W/PLT COUNT & AUTO [id number] 06:55:00 Test Item Value Reference Range Interpretation Comments WHITE BLOOD CELL COUNT (BEAKER) 14.5 K/ L 3.5-10.5 H (test code = 775) RED BLOOD CELL COUNT (BEAKER) 1.85 M/ L 3.93-5.22 L (test code = 761) HEMOGLOBIN (BEAKER) (test code = 6.3 GM/DL 11.2-15.7 L 410) HEMATOCRIT (BEAKER) (test code = 17.6 % 34.1-44.9 L 411) MEAN CORPUSCULAR VOLUME (BEAKER) 95.1 fL 79.4-94.8 H (test code = 753) MEAN CORPUSCULAR HEMOGLOBIN 34.1 pg 25.6-32.2 H (BEAKER) (test code = 751) MEAN CORPUSCULAR HEMOGLOBIN CONC 35.8 GM/DL 32.2-35.5 H (BEAKER) (test code = 752) RED CELL DISTRIBUTION WIDTH 23.7 % 11.7-14.4 H (BEAKER) (test code = 412) PLATELET COUNT (BEAKER) (test code 66 K/CU MM 150-450 L = 756) MEAN PLATELET VOLUME (BEAKER) 12.8 fL 9.4-12.3 H (test code = 754) NUCLEATED RED BLOOD CELLS (BEAKER) 0 /100 WBC 0-0 (test code = 413) NEUTROPHILS RELATIVE PERCENT 84 % (BEAKER) (test code = 429) LYMPHOCYTES RELATIVE PERCENT 4 % (BEAKER) (test code = 430) MONOCYTES RELATIVE PERCENT 8 % (BEAKER) (test code = 431) EOSINOPHILS RELATIVE PERCENT 2 % (BEAKER) (test code = 432) BASOPHILS RELATIVE PERCENT 0 % (BEAKER) (test code = 437) NEUTROPHILS ABSOLUTE COUNT 12.18 K/ L 1.56-6.13 H (BEAKER) (test code = 670) LYMPHOCYTES ABSOLUTE COUNT 0.60 K/ L 1.18-3.74 L (BEAKER) (test code = 414) MONOCYTES ABSOLUTE COUNT (BEAKER) 1.17 K/ L 0.24-0.36 H (test code = 415) EOSINOPHILS ABSOLUTE COUNT 0.35 K/ L 0.04-0.36 (BEAKER) (test code = 416) BASOPHILS ABSOLUTE COUNT (BEAKER) 0.01 K/ L 0.01-0.08 (test code = 417) IMMATURE GRANULOCYTES-RELATIVE 2 % 0-1 H PERCENT (BEAKER) (test code = 2801) PROTHROMBIN [id number] 06:43:00 Test Item Value Reference Range Interpretation Comments PROTIME (BEAKER) (test code = 24.7 seconds 11.7-14.7 H 759) INR (BEAKER) (test code = 370) 2.2 <=5.9 RECOMMENDED COUMADIN/WARFARIN INR THERAPY RANGESSTANDARD DOSE: 2.0 - 3.0 Includes: PROPHYLAXIS forvenous thrombosis, systemic embolization; TREATMENT for venous thrombosis and/or pulmonary embolus.HIGH RISK: Target INR is 2.5-3.5 for patients with mechanical heart valves.POCT-GLUCOSE [id number] 22:08:00 Test Item Value Reference Range Interpretation Comments POC-GLUCOSE METER 205 mg/dL 70-110 H TESTED AT [facility] [address] (BEAKER) (test code = [place] 1538) [id number] POCT-GLUCOSE [id number] 17:20:00 Test Item Value Reference Range Interpretation Comments POC-GLUCOSE METER 178 mg/dL 70-110 H TESTED AT [facility] 67 (BEAKER) (test code = [place] [facility] 1538) [id number] POCT-GLUCOSE [id number] 12:49:00 Test Item Value Reference Range Interpretation Comments POC-GLUCOSE METER 193 mg/dL 70-110 H TESTED AT [place] [address] (BEAKER) (test code = [place] [facility] 1538) [id number] COMPREHENSIVE METABOLIC [id number] 09:40:00 Test Item Value Reference Range Interpretation Comments TOTAL PROTEIN 5.8 gm/dL 6.0-8.3 L (BEAKER) (test code = 770) ALBUMIN (BEAKER) 3.3 g/dL 3.5-5.0 L (test code = 1145) ALKALINE PHOSPHATASE 155 U/L 40-150 H (BEAKER) (test code = 346) BILIRUBIN TOTAL 24.3 mg/dL 0.2-1.2 H (BEAKER) (test code = 377) SODIUM (BEAKER) 133 meq/L 136-145 L (test code = 381) POTASSIUM (BEAKER) 3.2 meq/L 3.5-5.1 L (test code = 379) CHLORIDE (BEAKER) 98 meq/L 98-107 (test code = 382) CO2 (BEAKER) (test 24 meq/L 22-29 code = 355) BLOOD UREA NITROGEN 110 mg/dL 7-21 H (BEAKER) (test code = 354) CREATININE (BEAKER) 2.26 mg/dL 0.57-1.25 H (test code = 358) GLUCOSE RANDOM 119 mg/dL 70-105 H (BEAKER) (test code = 652) CALCIUM (BEAKER) 9.1 mg/dL 8.4-10.2 (test code = 697) AST (SGOT) (BEAKER) 102 U/L 5-34 H (test code = 353) ALT (SGPT) (BEAKER) 92 U/L 6-55 H (test code = 347) EGFR (BEAKER) (test mL/min/1.73 INSUFFIC IENT code = 1092) sq m CLINICAL DATA T O CALCULATE ESTIM ATED GFR. Specimen markedly ictericPOCT-GLUCOSE [id number] 07:29:00 Test Item Value Reference Range Interpretation Comments POC-GLUCOSE METER 131 mg/dL 70-110 H TESTED AT [facility] (BEAKER) (test code = [place] 1538) [id number] PROTHROMBIN [id number] 07:24:00 Test Item Value Reference Range Interpretation Comments PROTIME (BEAKER) (test code = 24.2 seconds 11.7-14.7 H 759) INR (BEAKER) (test code = 370) 2.2 <=5.9 RECOMMENDED COUMADIN/WARFARIN INR THERAPY RANGESSTANDARD DOSE: 2.0 - 3.0 Includes: PROPHYLAXIS forvenous thrombosis, systemic embolization; TREATMENT for venous thrombosis and/or pulmonary embolus.HIGH RISK: Target INR is 2.5-3.5 for patients with mechanical heart valves.CBC W/PLT COUNT & AUTO DIFFERENTIAL 2018-04-15 07:17:00 Test Item Value Reference Range Interpretation Comments WHITE BLOOD CELL COUNT (BEAKER) 16.8 K/ L 3.5-10.5 H (test code = 775) RED BLOOD CELL COUNT (BEAKER) 2.14 M/ L 3.93-5.22 L (test code = 761) HEMOGLOBIN (BEAKER) (test code = 7.1 GM/DL 11.2-15.7 L 410) HEMATOCRIT (BEAKER) (test code = 19.9 % 34.1-44.9 L 411) MEAN CORPUSCULAR VOLUME (BEAKER) 93.0 fL 79.4-94.8 (test code = 753) MEAN CORPUSCULAR HEMOGLOBIN 33.2 pg 25.6-32.2 H (BEAKER) (test code = 751) MEAN CORPUSCULAR HEMOGLOBIN CONC 35.7 GM/DL 32.2-35.5 H (BEAKER) (test code = 752) RED CELL DISTRIBUTION WIDTH 23.3 % 11.7-14.4 H (BEAKER) (test code = 412) PLATELET COUNT (BEAKER) (test code 69 K/CU MM 150-450 L = 756) MEAN PLATELET VOLUME (BEAKER) 12.4 fL 9.4-12.3 H (test code = 754) NUCLEATED RED BLOOD CELLS (BEAKER) 0 /100 WBC 0-0 (test code = 413) NEUTROPHILS RELATIVE PERCENT 86 % (BEAKER) (test code = 429) LYMPHOCYTES RELATIVE PERCENT 5 % (BEAKER) (test code = 430) MONOCYTES RELATIVE PERCENT 6 % (BEAKER) (test code = 431) EOSINOPHILS RELATIVE PERCENT 1 % (BEAKER) (test code = 432) BASOPHILS RELATIVE PERCENT 0 % (BEAKER) (test code = 437) NEUTROPHILS ABSOLUTE COUNT 14.37 K/ L 1.56-6.13 H (BEAKER) (test code = 670) LYMPHOCYTES ABSOLUTE COUNT 0.83 K/ L 1.18-3.74 L (BEAKER) (test code = 414) MONOCYTES ABSOLUTE COUNT (BEAKER) 1.06 K/ L 0.24-0.36 H (test code = 415) EOSINOPHILS ABSOLUTE COUNT 0.22 K/ L 0.04-0.36 (BEAKER) (test code = 416) BASOPHILS ABSOLUTE COUNT (BEAKER) 0.01 K/ L 0.01-0.08 (test code = 417) IMMATURE GRANULOCYTES-RELATIVE 2 % 0-1 H PERCENT (BEAKER) (test code = 2801) POCT-GLUCOSE [id number] 22:50:00 Test Item Value Reference Range Interpretation Comments POC-GLUCOSE METER 184 mg/dL 70-110 H TESTED AT [place] [address] ([facility]) (test code = [facility] 1538) [id number] POCT-GLUCOSE [id number] 18:29:00 Test Item Value Reference Range Interpretation Comments POC-GLUCOSE METER 203 mg/dL 70-110 H TESTED AT [place] [address] ([facility]) (test code = [facility] 1538) [id number] POCT-GLUCOSE [id number] 12:19:00 Test Item Value Reference Range Interpretation Comments POC-GLUCOSE METER 180 mg/dL 70-110 H TESTED AT [place] [address] ([facility]) (test code [facility] 1538) [id number] HEMOGLOBIN [id number] 12:12:00 Test Item Value Reference Range Interpretation Comments H[facility]IN A1C [facility] (test code = 4.7 % 4.3-6.1 368) COMPREHENSIVE METABOLIC [id number] 07:50:00 Test Item Value Reference Range Interpretation Comments TOTAL PROTEIN 6.0 gm/dL 6.0-8.3 (BEAKER) (test code = 770) ALBUMIN (BEAKER) 3.4 g/dL 3.5-5.0 L (test code = 1145) ALKALINE PHOSPHATASE 207 U/L 40-150 H (BEAKER) (test code = 346) BILIRUBIN TOTAL 24.8 mg/dL 0.2-1.2 H (BEAKER) (test code = 377) SODIUM (BEAKER) 131 meq/L 136-145 L (test code = 381) POTASSIUM (BEAKER) 3.3 meq/L 3.5-5.1 L (test code = 379) CHLORIDE (BEAKER) 97 meq/L 98-107 L (test code = 382) CO2 (BEAKER) (test 20 meq/L 22-29 L code = 355) BLOOD UREA NITROGEN 113 mg/dL 7-21 H (BEAKER) (test code = 354) CREATININE (BEAKER) 2.64 mg/dL 0.57-1.25 H (test code = 358) GLUCOSE RANDOM 184 mg/dL 70-105 H (BEAKER) (test code = 652) CALCIUM (BEAKER) 9.0 mg/dL 8.4-10.2 (test code = 697) AST (SGOT) (BEAKER) 101 U/L 5-34 H (test code = 353) ALT (SGPT) (BEAKER) 84 U/L 6-55 H (test code = 347) EGFR (BEAKER) (test mL/min/1.73 INSUFFIC IENT code = 1092) sq m CLINICAL DATA T O CALCULATE ESTIM ATED GFR. Specimen markedly ictericPOCT-GLUCOSE [id number] 07:39:00 Test Item Value Reference Range Interpretation Comments POC-GLUCOSE METER 195 mg/dL 70-110 H TESTED AT [facility] (BEAKER) (test code = [place] 1536) [address] CBC W/PLT COUNT & AUTO [id number] 06:36:00 Test Item Value Reference Range Interpretation Comments WHITE BLOOD CELL COUNT (BEAKER) 20.2 K/ L 3.5-10.5 H (test code = 775) RED BLOOD CELL COUNT (BEAKER) 2.21 M/ L 3.93-5.22 L (test code = 761) HEMOGLOBIN (BEAKER) (test code = 7.3 GM/DL 11.2-15.7 L 410) HEMATOCRIT (BEAKER) (test code = 20.1 % 34.1-44.9 L 411) MEAN CORPUSCULAR VOLUME (BEAKER) 91.0 fL 79.4-94.8 (test code = 753) MEAN CORPUSCULAR HEMOGLOBIN 33.0 pg 25.6-32.2 H (BEAKER) (test code = 751) MEAN CORPUSCULAR HEMOGLOBIN CONC 36.3 GM/DL 32.2-35.5 H (BEAKER) (test code = 752) RED CELL DISTRIBUTION WIDTH 22.5 % 11.7-14.4 H (BEAKER) (test code = 412) PLATELET COUNT (BEAKER) (test code 76 K/CU MM 150-450 L = 756) MEAN PLATELET VOLUME (BEAKER) 12.0 fL 9.4-12.3 (test code = 754) NUCLEATED RED BLOOD CELLS (BEAKER) 0 /100 WBC 0-0 (test code = 413) NEUTROPHILS RELATIVE PERCENT 90 % (BEAKER) (test code = 429) LYMPHOCYTES RELATIVE PERCENT 2 % (BEAKER) (test code = 430) MONOCYTES RELATIVE PERCENT 6 % (BEAKER) (test code = 431) EOSINOPHILS RELATIVE PERCENT 0 % (BEAKER) (test code = 432) BASOPHILS RELATIVE PERCENT 0 % (BEAKER) (test code = 437) NEUTROPHILS ABSOLUTE COUNT 18.22 K/ L 1.56-6.13 H (BEAKER) (test code = 670) LYMPHOCYTES ABSOLUTE COUNT 0.39 K/ L 1.18-3.74 L (BEAKER) (test code = 414) MONOCYTES ABSOLUTE COUNT (BEAKER) 1.13 K/ L 0.24-0.36 H (test code = 415) EOSINOPHILS ABSOLUTE COUNT 0.00 K/ L 0.04-0.36 L (BEAKER) (test code = 416) BASOPHILS ABSOLUTE COUNT (BEAKER) 0.02 K/ L 0.01-0.08 (test code = 417) IMMATURE GRANULOCYTES-RELATIVE 2 % 0-1 H PERCENT (BEAKER) (test code = 2801) PROTHROMBIN [id number] 06:33:00 Test Item Value Reference Range Interpretation Comments PROTIME (BEAKER) (test code = 26.9 seconds 11.7-14.7 H 759) INR (BEAKER) (test code = 370) 2.5 <=5.9 RECOMMENDED COUMADIN/WARFARIN INR THERAPY RANGESSTANDARD DOSE: 2.0 - 3.0 Includes: PROPHYLAXIS forvenous thrombosis, systemic embolization; TREATMENT for venous thrombosis and/or pulmonary embolus.HIGH RISK: Target INR is 2.5-3.5 for patients with mechanical heart valves.POCT-GLUCOSE [id number] 23:36:00 Test Item Value Reference Range Interpretation Comments POC-GLUCOSE METER 238 mg/dL 70-110 H TESTED AT [place] [address] ([facility]) (test code = [facility] 1538) [id number] POCT-GLUCOSE [id number] 17:51:00 Test Item Value Reference Range Interpretation Comments POC-GLUCOSE METER 230 mg/dL 70-110 H TESTED AT [place] [address] ([facility]) (test code = [facility] 1538) [id number] POCT-GLUCOSE [id number] 11:40:00 Test Item Value Reference Range Interpretation Comments POC-GLUCOSE METER 218 mg/dL 70-110 H TESTED AT [place] [address] ([facility]) (test code = [facility] 1538) [id number] COMPREHENSIVE METABOLIC [id number] 06:37:00 Test Item Value Reference Range Interpretation Comments TOTAL PROTEIN 6.0 gm/dL 6.0-8.3 (BEAKER) (test code = 770) ALBUMIN (BEAKER) 3.4 g/dL 3.5-5.0 L (test code = 1145) ALKALINE PHOSPHATASE 212 U/L 40-150 H (BEAKER) (test code = 346) BILIRUBIN TOTAL 25.3 mg/dL 0.2-1.2 H (BEAKER) (test code = 377) SODIUM (BEAKER) 128 meq/L 136-145 L (test code = 381) POTASSIUM (BEAKER) 3.1 meq/L 3.5-5.1 L (test code = 379) CHLORIDE (BEAKER) 97 meq/L 98-107 L (test code = 382) CO2 (BEAKER) (test 17 meq/L 22-29 L code = 355) BLOOD UREA NITROGEN 116 mg/dL 7-21 H (BEAKER) (test code = 354) CREATININE (BEAKER) 3.22 mg/dL 0.57-1.25 H (test code = 358) GLUCOSE RANDOM 168 mg/dL 70-105 H (BEAKER) (test code = 652) CALCIUM (BEAKER) 9.1 mg/dL 8.4-10.2 (test code = 697) AST (SGOT) (BEAKER) 94 U/L 5-34 H (test code = 353) ALT (SGPT) (BEAKER) 69 U/L 6-55 H (test code = 347) EGFR (BEAKER) (test mL/min/1.73 INSUFFIC IENT code = 1092) sq m CLINICAL DATA T O CALCULATE ESTIM ATED GFR. Specimen markedly ictericCBC W/PLT COUNT & AUTO [id number] 06:19:00 Test Item Value Reference Range Interpretation Comments WHITE BLOOD CELL COUNT (BEAKER) 18.4 K/ L 3.5-10.5 H (test code = 775) RED BLOOD CELL COUNT (BEAKER) 2.22 M/ L 3.93-5.22 L (test code = 761) HEMOGLOBIN (BEAKER) (test code = 7.4 GM/DL 11.2-15.7 L 410) HEMATOCRIT (BEAKER) (test code = 20.2 % 34.1-44.9 L 411) MEAN CORPUSCULAR VOLUME (BEAKER) 91.0 fL 79.4-94.8 (test code = 753) MEAN CORPUSCULAR HEMOGLOBIN 33.3 pg 25.6-32.2 H (BEAKER) (test code = 751) MEAN CORPUSCULAR HEMOGLOBIN CONC 36.6 GM/DL 32.2-35.5 H (BEAKER) (test code = 752) RED CELL DISTRIBUTION WIDTH 21.9 % 11.7-14.4 H (BEAKER) (test code = 412) PLATELET COUNT (BEAKER) (test code 54 K/CU MM 150-450 L = 756) MEAN PLATELET VOLUME (BEAKER) 11.2 fL 9.4-12.3 (test code = 754) NUCLEATED RED BLOOD CELLS (BEAKER) 0 /100 WBC 0-0 (test code = 413) NEUTROPHILS RELATIVE PERCENT 91 % (BEAKER) (test code = 429) LYMPHOCYTES RELATIVE PERCENT 2 % (BEAKER) (test code = 430) MONOCYTES RELATIVE PERCENT 5 % (BEAKER) (test code = 431) EOSINOPHILS RELATIVE PERCENT 0 % (BEAKER) (test code = 432) BASOPHILS RELATIVE PERCENT 0 % (BEAKER) (test code = 437) NEUTROPHILS ABSOLUTE COUNT 16.70 K/ L 1.56-6.13 H (BEAKER) (test code = 670) LYMPHOCYTES ABSOLUTE COUNT 0.45 K/ L 1.18-3.74 L (BEAKER) (test code = 414) MONOCYTES ABSOLUTE COUNT (BEAKER) 0.94 K/ L 0.24-0.36 H (test code = 415) EOSINOPHILS ABSOLUTE COUNT 0.00 K/ L 0.04-0.36 L (BEAKER) (test code = 416) BASOPHILS ABSOLUTE COUNT (BEAKER) 0.02 K/ L 0.01-0.08 (test code = 417) IMMATURE GRANULOCYTES-RELATIVE 2 % 0-1 H PERCENT (BEAKER) (test code = 2801) PROTHROMBIN [id number] 06:12:00 Test Item Value Reference Range Interpretation Comments PROTIME (BEAKER) (test code = 26.2 seconds 11.7-14.7 H 759) INR (BEAKER) (test code = 370) 2.4 <=5.9 RECOMMENDED COUMADIN/WARFARIN INR THERAPY RANGESSTANDARD DOSE: 2.0 - 3.0 Includes: PROPHYLAXIS forvenous thrombosis, systemic embolization; TREATMENT for venous thrombosis and/or pulmonary embolus.HIGH RISK: Target INR is 2.5-3.5 for patients with mechanical heart valves.CBC W/PLT COUNT & AUTO DIFFERENTIAL 2018-04-12 07:11:00 Test Item Value Reference Range Interpretation Comments WHITE BLOOD CELL COUNT (BEAKER) 19.8 K/ L 3.5-10.5 H (test code = 775) RED BLOOD CELL COUNT (BEAKER) 2.40 M/ L 3.93-5.22 L (test code = 761) HEMOGLOBIN (BEAKER) (test code = 7.9 GM/DL 11.2-15.7 L 410) HEMATOCRIT (BEAKER) (test code = 21.8 % 34.1-44.9 L 411) MEAN CORPUSCULAR VOLUME (BEAKER) 90.8 fL 79.4-94.8 (test code = 753) MEAN CORPUSCULAR HEMOGLOBIN 32.9 pg 25.6-32.2 H (BEAKER) (test code = 751) MEAN CORPUSCULAR HEMOGLOBIN CONC 36.2 GM/DL 32.2-35.5 H (BEAKER) (test code = 752) RED CELL DISTRIBUTION WIDTH 21.6 % 11.7-14.4 H (BEAKER) (test code = 412) PLATELET COUNT (BEAKER) (test code 59 K/CU MM 150-450 L = 756) MEAN PLATELET VOLUME (BEAKER) 10.8 fL 9.4-12.3 (test code = 754) NUCLEATED RED BLOOD CELLS (BEAKER) 0 /100 WBC 0-0 (test code = 413) (CELLAVISION MANUAL DIFF)2018-04-12 07:11:00 Test Item Value Reference Range Interpretation Comments NEUTROPHILS - REL 94 % (CELLAVISION)(BEAKER) (test code = 2816) LYMPHOCYTES - REL 2 % (CELLAVISION)(BEAKER) (test code = 2817) MONOCYTES - REL 4 % (CELLAVISION)(BEAKER) (test code = 2818) NEUTROPHILS - ABS 18.61 K/ul 1.56-6.13 H (CELLAVISION)(BEAKER) (test code = 2830) LYMPHOCYTES - ABS 0.40 K/ul 1.18-3.74 L (CELLAVISION)(BEAKER) (test code = 2831) MONOCYTES - ABS 0.79 K/uL 0.24-0.36 H (CELLAVISION)(BEAKER) (test code = 2832) TOTAL COUNTED (BEAKER) (test code 100 = 1351) MANUAL NRBC PER 100 CELLS 1 /100 WBC 0-0 H (BEAKER) (test code = 1353) WBC MORPHOLOGY (BEAKER) (test Normal code = 487) PLT MORPHOLOGY (BEAKER) (test Normal code = 486) POLYCHROMATOPHILLIC RBCS(BEAKER) 2+ moderate (test code = 478) HYPOCHROMIA (BEAKER) (test code = 1+ few 963) SCHISTOCYTES (BEAKER) (test code 1+ few = 765) ROSELIA CELLS (BEAKER) (test code = 2+ moderate 474) ARTIFACT (CELLAVISION)(BEAKER) Present (test code = 3432) PLATELET CONCENTRATION Decreased (CELLAVISION)(BEAKER) (test code = 3438) Received comment: User comments: Slide comments:COMPREHENSIVE METABOLIC PANEL 2018-04-12 06:34:00 Test Item Value Reference Range Interpretation Comments TOTAL PROTEIN 6.0 gm/dL 6.0-8.3 (BEAKER) (test code = 770) ALBUMIN (BEAKER) 3.4 g/dL 3.5-5.0 L (test code = 1145) ALKALINE PHOSPHATASE 175 U/L 40-150 H (BEAKER) (test code = 346) BILIRUBIN TOTAL 24.9 mg/dL 0.2-1.2 H (BEAKER) (test code = 377) SODIUM (BEAKER) 125 meq/L 136-145 L (test code = 381) POTASSIUM (BEAKER) 3.5 meq/L 3.5-5.1 (test code = 379) CHLORIDE (BEAKER) 96 meq/L 98-107 L (test code = 382) CO2 (BEAKER) (test 16 meq/L 22-29 L code = 355) BLOOD UREA NITROGEN 114 mg/dL 7-21 H (BEAKER) (test code = 354) CREATININE (BEAKER) 4.04 mg/dL 0.57-1.25 H (test code = 358) GLUCOSE RANDOM 146 mg/dL 70-105 H (BEAKER) (test code = 652) CALCIUM (BEAKER) 9.0 mg/dL 8.4-10.2 (test code = 697) AST (SGOT) (BEAKER) 76 U/L 5-34 H (test code = 353) ALT (SGPT) (BEAKER) 48 U/L 6-55 (test code = 347) EGFR (BEAKER) (test mL/min/1.73 INSUFFIC IENT code = 1092) sq m CLINICAL DATA T O CALCULATE ESTIM ATED GFR. Specimen markedly ictericOSMOLALITY, [id number] 06:33:00 Test Item Value Reference Range Interpretation Comments OSMOLALITY, SERUM (BEAKER) (test 308 mOsm/kg 275-295 H code = 615) OSMOLALITY, [id number] 18:47:00 Test Item Value Reference Range Interpretation Comments OSMOLALITY URINE (BEAKER) (test 377 mOsm/kg 40-1,400 code = 614) HEMOGLOBIN AND [id number] 17:25:00 Test Item Value Reference Range Interpretation Comments HEMOGLOBIN (BEAKER) (test code = 8.2 GM/DL 11.2-15.7 L 410) HEMATOCRIT (BEAKER) (test code = 22.7 % 34.1-44.9 L 411) CBC W/PLT COUNT & AUTO [id number] 10:14:00 Test Item Value Reference Range Interpretation Comments WHITE BLOOD CELL COUNT (BEAKER) 17.3 K/ L 3.5-10.5 H (test code = 775) RED BLOOD CELL COUNT (BEAKER) 2.53 M/ L 3.93-5.22 L (test code = 761) HEMOGLOBIN (BEAKER) (test code = 8.4 GM/DL 11.2-15.7 L 410) HEMATOCRIT (BEAKER) (test code = 23.4 % 34.1-44.9 L 411) MEAN CORPUSCULAR VOLUME (BEAKER) 92.5 fL 79.4-94.8 (test code = 753) MEAN CORPUSCULAR HEMOGLOBIN 33.2 pg 25.6-32.2 H (BEAKER) (test code = 751) MEAN CORPUSCULAR HEMOGLOBIN CONC 35.9 GM/DL 32.2-35.5 H (BEAKER) (test code = 752) RED CELL DISTRIBUTION WIDTH 21.8 % 11.7-14.4 H (BEAKER) (test code = 412) PLATELET COUNT (BEAKER) (test code 54 K/CU MM 150-450 L = 756) MEAN PLATELET VOLUME (BEAKER) 12.0 fL 9.4-12.3 (test code = 754) NUCLEATED RED BLOOD CELLS (BEAKER) 0 /100 WBC 0-0 (test code = 413) (CELLAVISION MANUAL DIFF)2018-04-11 10:14:00 Test Item Value Reference Range Interpretation Comments NEUTROPHILS - REL 92 % (CELLAVISION)(BEAKER) (test code = 2816) LYMPHOCYTES - REL 5 % (CELLAVISION)(BEAKER) (test code = 2817) MONOCYTES - REL 2 % (CELLAVISION)(BEAKER) (test code = 2818) BANDS - REL (CELLAVISION)(BEAKER) 1 % 0-10 (test code = 2826) NEUTROPHILS - ABS 15.92 K/ul 1.56-6.13 H (CELLAVISION)(BEAKER) (test code = 2830) LYMPHOCYTES - ABS 0.87 K/ul 1.18-3.74 L (CELLAVISION)(BEAKER) (test code = 2831) MONOCYTES - ABS 0.35 K/uL 0.24-0.36 (CELLAVISION)(BEAKER) (test code = 2832) BANDS - ABS (CELLAVISION)(BEAKER) 0.17 K/uL 0.00-0.80 (test code = 2840) TOTAL COUNTED (BEAKER) (test code 100 = 1351) MANUAL NRBC PER 100 CELLS 1 /100 WBC 0-0 H (BEAKER) (test code = 1353) CLUMPED PLATELETS (BEAKER) (test Present code = 436) SMUDGE CELLS (BEAKER) (test code Present = 1371) GIANT PLATELETS (BEAKER) (test Present code = 313) POLYCHROMATOPHILLIC RBCS(BEAKER) 1+ few (test code = 478) ANISOCYTOSIS (BEAKER) (test code 3+ many = 961) MACROCYTES (BEAKER) (test code = 2+ moderate 964) POIKILOCYTES (BEAKER) (test code 3+ many = 966) SCHISTOCYTES (BEAKER) (test code 2+ moderate = 765) SPHEROCYTES (BEAKER) (test code = 1+ few 768) ROSELIA CELLS (BEAKER) (test code = 2+ moderate 474) ARTIFACT (CELLAVISION)(BEAKER) Present (test code = 3432) PLATELET CONCENTRATION Decreased (CELLAVISION)(BEAKER) (test code = 3438) Received comment: User comments: Slide comments:COMPREHENSIVE METABOLIC PANEL 2018-04-11 07:26:00 Test Item Value Reference Range Interpretation Comments TOTAL PROTEIN 6.2 gm/dL 6.0-8.3 Specimen sligh tly (BEAKER) (test code hemolyze d = 770) ALBUMIN (BEAKER) 3.5 g/dL 3.5-5.0 Specimen sl ightly (test code = 1145) hemolyzed ALKALINE PHOSPHATASE 132 U/L 40-150 (BEAKER) (test code = 346) BILIRUBIN TOTAL 25.7 mg/dL 0.2-1.2 H Specimen sli ghtly (BEAKER) (test code hemolyze d = 377) SODIUM (BEAKER) 122 meq/L 136-145 L (test code = 381) POTASSIUM (BEAKER) 4.0 meq/L 3.5-5.1 Specimen slightly (test code = 379) hemolyzed CHLORIDE (BEAKER) 95 meq/L 98-107 L (test code = 382) CO2 (BEAKER) (test 15 meq/L 22-29 L code = 355) BLOOD UREA NITROGEN 115 mg/dL 7-21 H (BEAKER) (test code = 354) CREATININE (BEAKER) 4.77 mg/dL 0.57-1.25 H Specimen slightly (test code = 358) hemolyzed GLUCOSE RANDOM 149 mg/dL 70-105 H (BEAKER) (test code = 652) CALCIUM (BEAKER) 9.0 mg/dL 8.4-10.2 (test code = 697) AST (SGOT) (BEAKER) 69 U/L 5-34 H Specimen slightly (test code = 353) hemolyzed ALT (SGPT) (BEAKER) 36 U/L 6-55 Specimen slightly (test code = 347) hemolyzed EGFR (BEAKER) (test mL/min/1.73 INSUFFIC IENT code = 1092) sq m CLINICAL DATA T O CALCULATE ESTIM ATED GFR. Specimen markedly ictericHEMOGLOBIN AND [id number] 18:54:00 Test Item Value Reference Range Interpretation Comments HEMOGLOBIN (BEAKER) (test code = 8.4 GM/DL 11.2-15.7 L 410) HEMATOCRIT (BEAKER) (test code = 23.2 % 34.1-44.9 L 411) VITAMIN D, [id number] 05:33:00 Test Item Value Reference Range Interpretation Comments VITAMIN D 25-OH (BEAKER) (test code 4.8 ng/mL 6.6-49.9 L = 2764) Effective 03/16/2017: Reference Range ChangeNew: 6.6-49.9 ng/mL Previous: 13.0-47.8 ng/mLRecommended Vitamin D Target Range: 30.0-40.0 ng/mLCOMPREHENSIVE METABOLIC [id number] 05:18:00 Test Item Value Reference Range Interpretation Comments TOTAL PROTEIN 5.9 gm/dL 6.0-8.3 L (BEAKER) (test code = 770) ALBUMIN (BEAKER) 3.5 g/dL 3.5-5.0 (test code = 1145) ALKALINE PHOSPHATASE 115 U/L 40-150 (BEAKER) (test code = 346) BILIRUBIN TOTAL 25.4 mg/dL 0.2-1.2 H (BEAKER) (test code = 377) SODIUM (BEAKER) 125 meq/L 136-145 L (test code = 381) POTASSIUM (BEAKER) 3.7 meq/L 3.5-5.1 (test code = 379) CHLORIDE (BEAKER) 97 meq/L 98-107 L (test code = 382) CO2 (BEAKER) (test 13 meq/L 22-29 L code = 355) BLOOD UREA NITROGEN 108 mg/dL 7-21 H (BEAKER) (test code = 354) CREATININE (BEAKER) 6.00 mg/dL 0.57-1.25 H (test code = 358) GLUCOSE RANDOM 145 mg/dL 70-105 H (BEAKER) (test code = 652) CALCIUM (BEAKER) 9.2 mg/dL 8.4-10.2 (test code = 697) AST (SGOT) (BEAKER) 55 U/L 5-34 H (test code = 353) ALT (SGPT) (BEAKER) 24 U/L 6-55 (test code = 347) EGFR (BEAKER) (test mL/min/1.73 INSUFFIC IENT code = 1092) sq m CLINICAL DATA T O CALCULATE ESTIM ATED GFR. Specimen markedly ictericPROTHROMBIN [id number] 04:48:00 Test Item Value Reference Range Interpretation Comments PROTIME (BEAKER) (test code = 29.8 seconds 11.7-14.7 H 759) INR (BEAKER) (test code = 370) 2.8 <=5.9 RECOMMENDED COUMADIN/WARFARIN INR THERAPY RANGESSTANDARD DOSE: 2.0 - 3.0 Includes: PROPHYLAXIS forvenous thrombosis, systemic embolization; TREATMENT for venous thrombosis and/or pulmonary embolus.HIGH RISK: Target INR is 2.5-3.5 for patients with mechanical heart valves.CBC W/PLT COUNT & AUTO DIFFERENTIAL 2018-04-10 04:45:00 Test Item Value Reference Range Interpretation Comments WHITE BLOOD CELL COUNT (BEAKER) 14.7 K/ L 3.5-10.5 H (test code = 775) RED BLOOD CELL COUNT (BEAKER) 2.54 M/ L 3.93-5.22 L (test code = 761) HEMOGLOBIN (BEAKER) (test code = 8.3 GM/DL 11.2-15.7 L 410) HEMATOCRIT (BEAKER) (test code = 23.2 % 34.1-44.9 L 411) MEAN CORPUSCULAR VOLUME (BEAKER) 91.3 fL 79.4-94.8 (test code = 753) MEAN CORPUSCULAR HEMOGLOBIN 32.7 pg 25.6-32.2 H (BEAKER) (test code = 751) MEAN CORPUSCULAR HEMOGLOBIN CONC 35.8 GM/DL 32.2-35.5 H (BEAKER) (test code = 752) RED CELL DISTRIBUTION WIDTH 21.6 % 11.7-14.4 H (BEAKER) (test code = 412) PLATELET COUNT (BEAKER) (test code 51 K/CU MM 150-450 L = 756) MEAN PLATELET VOLUME (BEAKER) 11.7 fL 9.4-12.3 (test code = 754) NUCLEATED RED BLOOD CELLS (BEAKER) 0 /100 WBC 0-0 (test code = 413) NEUTROPHILS RELATIVE PERCENT 83 % (BEAKER) (test code = 429) LYMPHOCYTES RELATIVE PERCENT 6 % (BEAKER) (test code = 430) MONOCYTES RELATIVE PERCENT 8 % (BEAKER) (test code = 431) EOSINOPHILS RELATIVE PERCENT 0 % (BEAKER) (test code = 432) BASOPHILS RELATIVE PERCENT 0 % (BEAKER) (test code = 437) NEUTROPHILS ABSOLUTE COUNT 12.26 K/ L 1.56-6.13 H (BEAKER) (test code = 670) LYMPHOCYTES ABSOLUTE COUNT 0.86 K/ L 1.18-3.74 L (BEAKER) (test code = 414) MONOCYTES ABSOLUTE COUNT (BEAKER) 1.18 K/ L 0.24-0.36 H (test code = 415) EOSINOPHILS ABSOLUTE COUNT 0.00 K/ L 0.04-0.36 L (BEAKER) (test code = 416) BASOPHILS ABSOLUTE COUNT (BEAKER) 0.01 K/ L 0.01-0.08 (test code = 417) IMMATURE GRANULOCYTES-RELATIVE 3 % 0-1 H PERCENT (BEAKER) (test code = 2801) HEMOGLOBIN AND [id number] 04:35:00 Test Item Value Reference Range Interpretation Comments HEMOGLOBIN (BEAKER) (test code = 8.3 GM/DL 11.2-15.7 L 410) HEMATOCRIT (BEAKER) (test code = 23.2 % 34.1-44.9 L 411) RAD, ABDOMEN/KUB, 1 VIEW [id number] 18:02:00Reason for exam:->abdominal pain/distentionShould this be performed at the bedside?->YesFINAL REPORT INDICATION:Abdominal pain and distention. COMPARISON: April 02, 2018 TECHNIQUE: Abdomen radiograph one view. FINDINGS / IMPRESSION:The bowel loops are centralized which may be seen in ascites. No bowel obstruction is demonstrated. Osseous structures unremarkable. Signed: Brian Jensen Verified Date/Time: 04/09/2018 18:02:54 Reading Location: [address] Ortho Consult Reading Room 06:02 PMCBC W/PLT COUNT & AUTO [id number] 09:01:00 Test Item Value Reference Range Interpretation Comments WHITE BLOOD CELL COUNT (BEAKER) 12.9 K/ L 3.5-10.5 H (test code = 775) RED BLOOD CELL COUNT (BEAKER) 2.33 M/ L 3.93-5.22 L (test code = 761) HEMOGLOBIN (BEAKER) (test code = 7.7 GM/DL 11.2-15.7 L 410) HEMATOCRIT (BEAKER) (test code = 21.3 % 34.1-44.9 L 411) MEAN CORPUSCULAR VOLUME (BEAKER) 91.4 fL 79.4-94.8 (test code = 753) MEAN CORPUSCULAR HEMOGLOBIN 33.0 pg 25.6-32.2 H (BEAKER) (test code = 751) MEAN CORPUSCULAR HEMOGLOBIN CONC 36.2 GM/DL 32.2-35.5 H (BEAKER) (test code = 752) RED CELL DISTRIBUTION WIDTH 21.2 % 11.7-14.4 H (BEAKER) (test code = 412) PLATELET COUNT (BEAKER) (test code 37 K/CU MM 150-450 L = 756) MEAN PLATELET VOLUME (BEAKER) 10.8 fL 9.4-12.3 (test code = 754) NUCLEATED RED BLOOD CELLS (BEAKER) 0 /100 WBC 0-0 (test code = 413) NEUTROPHILS RELATIVE PERCENT 85 % (BEAKER) (test code = 429) LYMPHOCYTES RELATIVE PERCENT 3 % (BEAKER) (test code = 430) MONOCYTES RELATIVE PERCENT 8 % (BEAKER) (test code = 431) EOSINOPHILS RELATIVE PERCENT 0 % (BEAKER) (test code = 432) BASOPHILS RELATIVE PERCENT 0 % (BEAKER) (test code = 437) NEUTROPHILS ABSOLUTE COUNT 11.00 K/ L 1.56-6.13 H (BEAKER) (test code = 670) LYMPHOCYTES ABSOLUTE COUNT 0.43 K/ L 1.18-3.74 L (BEAKER) (test code = 414) MONOCYTES ABSOLUTE COUNT (BEAKER) 1.06 K/ L 0.24-0.36 H (test code = 415) EOSINOPHILS ABSOLUTE COUNT 0.00 K/ L 0.04-0.36 L (BEAKER) (test code = 416) BASOPHILS ABSOLUTE COUNT (BEAKER) 0.01 K/ L 0.01-0.08 (test code = 417) IMMATURE GRANULOCYTES-RELATIVE 3 % 0-1 H PERCENT (BEAKER) (test code = 2801) COMPREHENSIVE METABOLIC [id number] 07:16:00 Test Item Value Reference Range Interpretation Comments TOTAL PROTEIN 5.5 gm/dL 6.0-8.3 L (BEAKER) (test code = 770) ALBUMIN (BEAKER) 3.4 g/dL 3.5-5.0 L (test code = 1145) ALKALINE PHOSPHATASE 127 U/L 40-150 (BEAKER) (test code = 346) BILIRUBIN TOTAL 22.8 mg/dL 0.2-1.2 H (BEAKER) (test code = 377) SODIUM (BEAKER) 126 meq/L 136-145 L (test code = 381) POTASSIUM (BEAKER) 3.3 meq/L 3.5-5.1 L (test code = 379) CHLORIDE (BEAKER) 100 meq/L 98-107 (test code = 382) CO2 (BEAKER) (test 13 meq/L 22-29 L code = 355) BLOOD UREA NITROGEN 98 mg/dL 7-21 H (BEAKER) (test code = 354) CREATININE (BEAKER) 6.19 mg/dL 0.57-1.25 H (test code = 358) GLUCOSE RANDOM 165 mg/dL 70-105 H (BEAKER) (test code = 652) CALCIUM (BEAKER) 8.7 mg/dL 8.4-10.2 (test code = 697) AST (SGOT) (BEAKER) 47 U/L 5-34 H (test code = 353) ALT (SGPT) (BEAKER) 17 U/L 6-55 (test code = 347) EGFR (BEAKER) (test mL/min/1.73 INSUFFIC IENT code = 1092) sq m CLINICAL DATA T O CALCULATE ESTIM ATED GFR. Specimen markedly ictericPROTHROMBIN [id number] 06:14:00 Test Item Value Reference Range Interpretation Comments PROTIME (BEAKER) (test code = 29.3 seconds 11.7-14.7 H 759) INR (BEAKER) (test code = 370) 2.8 <=5.9 RECOMMENDED COUMADIN/WARFARIN INR THERAPY RANGESSTANDARD DOSE: 2.0 - 3.0 Includes: PROPHYLAXIS forvenous thrombosis, systemic embolization; TREATMENT for venous thrombosis and/or pulmonary embolus.HIGH RISK: Target INR is 2.5-3.5 for patients with mechanical heart valves.HEMOGLOBIN AND [id number] 05:55:00 Test Item Value Reference Range Interpretation Comments HEMOGLOBIN (BEAKER) (test code = 7.7 GM/DL 11.2-15.7 L 410) HEMATOCRIT (BEAKER) (test code = 21.3 % 34.1-44.9 L 411) SODIUM, RANDOM [id number] 18:51:00 Test Item Value Reference Range Interpretation Comments SODIUM URINE (BEAKER) (test code = < meq/L 243) Reference Range: No NormalsCHLORIDE, RANDOM [id number] 18:51:00 Test Item Value Reference Range Interpretation Comments CHLORIDE URINE (BEAKER) (test code = < meq/L 682) Reference Range: No NormalsCREATININE, RANDOM [id number] 18:44:00 Test Item Value Reference Range Interpretation Comments CREATININE URINE (BEAKER) (test 166.3 mg/dL code = 375) Reference Range: No NormalsPOTASSIUM, RANDOM [id number] 18:44:00 Test Item Value Reference Range Interpretation Comments POTASSIUM URINE (BEAKER) (test 26.9 meq/L code = 195) Reference Range: No NormalsPOCT-GLUCOSE [id number] 18:42:00 Test Item Value Reference Range Interpretation Comments POC-GLUCOSE METER 270 mg/dL 70-110 H TESTED AT [place] [address] ([facility]) ([facility] [place] [facility] [id number] POCT-GLUCOSE [id number] 12:28:00 Test Item Value Reference Range Interpretation Comments POC-GLUCOSE METER 233 mg/dL 70-110 H TESTED AT [place] [address] ([facility]) (test code = [facility] [place] 1538) [id number] BLOOD GAS, [id number] 09:28:00 Test Item Value Reference Range Interpretation Comments PH ARTERIAL (BEAKER) (test code = 7.38 7.35-7.45 383) PCO2 ARTERIAL (BEAKER) (test code 28 mmHg 35-45 L = 384) PO2 ARTERIAL (BEAKER) (test code 122 mmHg 80-90 H = 385) O2 SATURATION ARTERIAL (BEAKER) 98.4 % 96.0-97.0 H (test code = 386) HCO3 ARTERIAL (BEAKER) (test code 16 mmol/L 21-29 L = 388) BASE EXCESS ARTERIAL (BEAKER) -8.4 mmol/L -2.0-3.0 L (test code = 387) PATIENT TEMPERATURE (BEAKER) 36.6 C (test code = 1818) FIO2 (BEAKER) (test code = 1819) 21.0 % POCT-GLUCOSE [id number] 07:02:00 Test Item Value Reference Range Interpretation Comments POC-GLUCOSE METER 243 mg/dL 70-110 H TESTED AT [place] [address] (BEAKER) (test code = [facility] [place] 1538) [address] COMPREHENSIVE METABOLIC [id number] 06:41:00 Test Item Value Reference Range Interpretation Comments TOTAL PROTEIN 6.1 gm/dL 6.0-8.3 (BEAKER) (test code = 770) ALBUMIN (BEAKER) 3.9 g/dL 3.5-5.0 (test code = 1145) ALKALINE PHOSPHATASE 127 U/L 40-150 (BEAKER) (test code = 346) BILIRUBIN TOTAL 25.2 mg/dL 0.2-1.2 H (BEAKER) (test code = 377) SODIUM (BEAKER) 125 meq/L 136-145 L (test code = 381) POTASSIUM (BEAKER) 3.5 meq/L 3.5-5.1 (test code = 379) CHLORIDE (BEAKER) 96 meq/L 98-107 L (test code = 382) CO2 (BEAKER) (test 12 meq/L 22-29 L code = 355) BLOOD UREA NITROGEN 87 mg/dL 7-21 H (BEAKER) (test code = 354) CREATININE (BEAKER) 6.28 mg/dL 0.57-1.25 H (test code = 358) GLUCOSE RANDOM 194 mg/dL 70-105 H (BEAKER) (test code = 652) CALCIUM (BEAKER) 8.7 mg/dL 8.4-10.2 (test code = 697) AST (SGOT) (BEAKER) 55 U/L 5-34 H (test code = 353) ALT (SGPT) (BEAKER) 18 U/L 6-55 (test code = 347) EGFR (BEAKER) (test mL/min/1.73 INSUFFIC IENT code = 1092) sq m CLINICAL DATA T O CALCULATE ESTIM ATED GFR. Specimen markedly ictericPROTHROMBIN TIME/[id number] 05:44:00 Test Item Value Reference Range Interpretation Comments PROTIME (BEAKER) (test code = 30.4 seconds 11.7-14.7 H 759) INR (BEAKER) (test code = 370) 2.9 <=5.9 RECOMMENDED COUMADIN/WARFARIN INR THERAPY RANGESSTANDARD DOSE: 2.0 - 3.0 Includes: PROPHYLAXIS forvenous thrombosis, systemic embolization; TREATMENT for venous thrombosis and/or pulmonary embolus.HIGH RISK: Target INR is 2.5-3.5 for patients with mechanical heart valves.CBC W/PLT COUNT & AUTO DIFFERENTIAL 2018-04-08 05:43:00 Test Item Value Reference Range Interpretation Comments WHITE BLOOD CELL COUNT (BEAKER) 9.0 K/ L 3.5-10.5 (test code = 775) RED BLOOD CELL COUNT (BEAKER) 2.39 M/ L 3.93-5.22 L (test code = 761) HEMOGLOBIN (BEAKER) (test code = 7.8 GM/DL 11.2-15.7 L 410) HEMATOCRIT (BEAKER) (test code = 22.0 % 34.1-44.9 L 411) MEAN CORPUSCULAR VOLUME (BEAKER) 92.1 fL 79.4-94.8 (test code = 753) MEAN CORPUSCULAR HEMOGLOBIN 32.6 pg 25.6-32.2 H (BEAKER) (test code = 751) MEAN CORPUSCULAR HEMOGLOBIN CONC 35.5 GM/DL 32.2-35.5 (BEAKER) (test code = 752) RED CELL DISTRIBUTION WIDTH 21.1 % 11.7-14.4 H (BEAKER) (test code = 412) PLATELET COUNT (BEAKER) (test code 35 K/CU MM 150-450 L = 756) MEAN PLATELET VOLUME (BEAKER) 11.6 fL 9.4-12.3 (test code = 754) NUCLEATED RED BLOOD CELLS (BEAKER) 0 /100 WBC 0-0 (test code = 413) NEUTROPHILS RELATIVE PERCENT 90 % (BEAKER) (test code = 429) LYMPHOCYTES RELATIVE PERCENT 5 % (BEAKER) (test code = 430) MONOCYTES RELATIVE PERCENT 2 % (BEAKER) (test code = 431) EOSINOPHILS RELATIVE PERCENT 0 % (BEAKER) (test code = 432) BASOPHILS RELATIVE PERCENT 0 % (BEAKER) (test code = 437) NEUTROPHILS ABSOLUTE COUNT 8.08 K/ L 1.56-6.13 H (BEAKER) (test code = 670) LYMPHOCYTES ABSOLUTE COUNT 0.40 K/ L 1.18-3.74 L (BEAKER) (test code = 414) MONOCYTES ABSOLUTE COUNT (BEAKER) 0.17 K/ L 0.24-0.36 L (test code = 415) EOSINOPHILS ABSOLUTE COUNT 0.01 K/ L 0.04-0.36 L (BEAKER) (test code = 416) BASOPHILS ABSOLUTE COUNT (BEAKER) 0.01 K/ L 0.01-0.08 (test code = 417) IMMATURE GRANULOCYTES-RELATIVE 3 % 0-1 H PERCENT (BEAKER) (test code = 2805) POCT-GLUCOSE [id number] 23:50:00 Test Item Value Reference Range Interpretation Comments POC-GLUCOSE METER 205 mg/dL 70-110 H TESTED AT [place] [address] (BEAKER) (test code = [place] 1538) [id number] POCT-GLUCOSE [id number] 18:49:00 Test Item Value Reference Range Interpretation Comments POC-GLUCOSE METER 168 mg/dL 70-110 H TESTED AT [place] [address] (BEAKER) (test code = [place] 1538) [id number] HEPATIC FUNCTION [id number] 18:41:00 Test Item Value Reference Range Interpretation Comments TOTAL PROTEIN (BEAKER) (test code 5.8 gm/dL 6.0-8.3 L = 770) ALBUMIN (BEAKER) (test code = 3.6 g/dL 3.5-5.0 1145) BILIRUBIN TOTAL (BEAKER) (test 25.7 mg/dL 0.2-1.2 H code = 377) BILIRUBIN DIRECT (BEAKER) (test 14.6 mg/dL 0.1-0.5 H code = 706) ALKALINE PHOSPHATASE (BEAKER) 133 U/L 40-150 (test code = 346) AST (SGOT) (BEAKER) (test code = 59 U/L 5-34 H 353) ALT (SGPT) (BEAKER) (test code = 20 U/L 6-55 347) Specimen markedly ictericHEMOGLOBIN AND [id number] 17:23:00 Test Item Value Reference Range Interpretation Comments HEMOGLOBIN (BEAKER) (test code = 7.9 GM/DL 11.2-15.7 L 410) HEMATOCRIT (BEAKER) (test code = 22.0 % 34.1-44.9 L 411) POCT-GLUCOSE [id number] 13:33:00 Test Item Value Reference Range Interpretation Comments POC-GLUCOSE METER 187 mg/dL 70-110 H TESTED AT [place] [address] (BEAKER) (test code = [facility] [place] 1538) [address] BASIC METABOLIC [id number] 07:42:00 Test Item Value Reference Range Interpretation Comments SODIUM (BEAKER) 126 meq/L 136-145 L (test code = 381) POTASSIUM (BEAKER) 3.0 meq/L 3.5-5.1 L (test code = 379) CHLORIDE (BEAKER) 96 meq/L 98-107 L (test code = 382) CO2 (BEAKER) (test 16 meq/L 22-29 L code = 355) BLOOD UREA NITROGEN 86 mg/dL 7-21 H (BEAKER) (test code = 354) CREATININE (BEAKER) 6.94 mg/dL 0.57-1.25 H (test code = 358) GLUCOSE RANDOM 150 mg/dL 70-105 H (BEAKER) (test code = 652) CALCIUM (BEAKER) 8.6 mg/dL 8.4-10.2 (test code = 697) EGFR (BEAKER) (test mL/min/1.73 INSUFFIC IENT CLINICAL code = 1092) sq m DATA TO CALCULA TE ESTIMATED GFR. Specimen markedly ictericCBC W/PLT COUNT & AUTO [id number] 07:18:00 Test Item Value Reference Range Interpretation Comments WHITE BLOOD CELL COUNT (BEAKER) 9.0 K/ L 3.5-10.5 (test code = 775) RED BLOOD CELL COUNT (BEAKER) 2.31 M/ L 3.93-5.22 L (test code = 761) HEMOGLOBIN (BEAKER) (test code = 7.6 GM/DL 11.2-15.7 L 410) HEMATOCRIT (BEAKER) (test code = 21.0 % 34.1-44.9 L 411) MEAN CORPUSCULAR VOLUME (BEAKER) 90.9 fL 79.4-94.8 (test code = 753) MEAN CORPUSCULAR HEMOGLOBIN 32.9 pg 25.6-32.2 H (BEAKER) (test code = 751) MEAN CORPUSCULAR HEMOGLOBIN CONC 36.2 GM/DL 32.2-35.5 H (BEAKER) (test code = 752) RED CELL DISTRIBUTION WIDTH 20.8 % 11.7-14.4 H (BEAKER) (test code = 412) PLATELET COUNT (BEAKER) (test code 38 K/CU MM 150-450 L = 756) MEAN PLATELET VOLUME (BEAKER) 11.3 fL 9.4-12.3 (test code = 754) NUCLEATED RED BLOOD CELLS (BEAKER) 0 /100 WBC 0-0 (test code = 413) NEUTROPHILS RELATIVE PERCENT 76 % (BEAKER) (test code = 429) LYMPHOCYTES RELATIVE PERCENT 9 % (BEAKER) (test code = 430) MONOCYTES RELATIVE PERCENT 11 % (BEAKER) (test code = 431) EOSINOPHILS RELATIVE PERCENT 2 % (BEAKER) (test code = 432) BASOPHILS RELATIVE PERCENT 0 % (BEAKER) (test code = 437) NEUTROPHILS ABSOLUTE COUNT 6.83 K/ L 1.56-6.13 H (BEAKER) (test code = 670) LYMPHOCYTES ABSOLUTE COUNT 0.79 K/ L 1.18-3.74 L (BEAKER) (test code = 414) MONOCYTES ABSOLUTE COUNT (BEAKER) 0.94 K/ L 0.24-0.36 H (test code = 415) EOSINOPHILS ABSOLUTE COUNT 0.19 K/ L 0.04-0.36 (BEAKER) (test code = 416) BASOPHILS ABSOLUTE COUNT (BEAKER) 0.03 K/ L 0.01-0.08 (test code = 417) IMMATURE GRANULOCYTES-RELATIVE 2 % 0-1 H PERCENT (BEAKER) (test code = 2801) POCT-GLUCOSE [id number] 06:32:00 Test Item Value Reference Range Interpretation Comments POC-GLUCOSE METER 187 mg/dL 70-110 H TESTED AT [place] [address] (BEAKER) (test code = [facility] 1538) [id number] BLOOD [id number] 06:00:00 Test Item Value Reference Range Interpretation Comments CULTURE (BEAKER) (test No growth in 5 days code = 1095) BLOOD [id number] 06:00:00 Test Item Value Reference Range Interpretation Comments CULTURE (BEAKER) (test No growth in 5 days code = 1095) POCT-GLUCOSE [id number] 00:41:00 Test Item Value Reference Range Interpretation Comments POC-GLUCOSE METER 182 mg/dL 70-110 H TESTED AT [place] [address] (BEAKER) (test code = [facility] 1538) [id number] POCT-GLUCOSE [id number] 20:20:00 Test Item Value Reference Range Interpretation Comments POC-GLUCOSE METER 149 mg/dL 70-110 H TESTED AT [place] [address] (BEAKER) (test code = [facility] 1538) [address] BASIC METABOLIC [id number] 17:34:00 Test Item Value Reference Range Interpretation Comments SODIUM (BEAKER) 124 meq/L 136-145 L (test code = 381) POTASSIUM (BEAKER) 2.9 meq/L 3.5-5.1 L (test code = 379) CHLORIDE (BEAKER) 93 meq/L 98-107 L (test code = 382) CO2 (BEAKER) (test 17 meq/L 22-29 L code = 355) BLOOD UREA NITROGEN 85 mg/dL 7-21 H (BEAKER) (test code = 354) CREATININE (BEAKER) 6.60 mg/dL 0.57-1.25 H (test code = 358) GLUCOSE RANDOM 166 mg/dL 70-105 H (BEAKER) (test code = 652) CALCIUM (BEAKER) 8.8 mg/dL 8.4-10.2 (test code = 697) EGFR (BEAKER) (test mL/min/1.73 INSUFFIC IENT CLINICAL code = 1092) sq m DATA TO CALCULA TE ESTIMATED GFR. Specimen markedly ictericHEMOGLOBIN AND [id number] 16:55:00 Test Item Value Reference Range Interpretation Comments HEMOGLOBIN (BEAKER) (test code = 8.2 GM/DL 11.2-15.7 L 410) HEMATOCRIT (BEAKER) (test code = 22.7 % 34.1-44.9 L 411) POCT-GLUCOSE [id number] 14:17:00 Test Item Value Reference Range Interpretation Comments POC-GLUCOSE METER 157 mg/dL 70-110 H TESTED AT [place] [address] ([facility]) (test code = [facility] 1538) [id number] POCT-GLUCOSE [id number] 08:52:00 Test Item Value Reference Range Interpretation Comments POC-GLUCOSE METER 149 mg/dL 70-110 H TESTED AT [place] [address] ([facility]) (test code = [place] [facility] 1538) [address] ANTI-MITOCHONDRIAL AB, REFLEX TO [id number] 07:52:00 Test Item Value Reference Range Interpretation Comments SCAN RESULT (test code = 8748724) HEPATIC FUNCTION [id number] 07:24:00 Test Item Value Reference Range Interpretation Comments TOTAL PROTEIN (BEAKER) (test code 5.5 gm/dL 6.0-8.3 L = 770) ALBUMIN (BEAKER) (test code = 3.1 g/dL 3.5-5.0 L 1145) BILIRUBIN TOTAL (BEAKER) (test 27.8 mg/dL 0.2-1.2 H code = 377) BILIRUBIN DIRECT (BEAKER) (test 18.0 mg/dL 0.1-0.5 H code = 706) ALKALINE PHOSPHATASE (BEAKER) 102 U/L 40-150 (test code = 346) AST (SGOT) (BEAKER) (test code = 84 U/L 5-34 H 353) ALT (SGPT) (BEAKER) (test code = 32 U/L 6-55 347) Specimen markedly ictericBASIC METABOLIC [id number] 07:23:00 Test Item Value Reference Range Interpretation Comments SODIUM (BEAKER) 124 meq/L 136-145 L (test code = 381) POTASSIUM (BEAKER) 3.1 meq/L 3.5-5.1 L (test code = 379) CHLORIDE (BEAKER) 94 meq/L 98-107 L (test code = 382) CO2 (BEAKER) (test 17 meq/L 22-29 L code = 355) BLOOD UREA NITROGEN 84 mg/dL 7-21 H (BEAKER) (test code = 354) CREATININE (BEAKER) 6.48 mg/dL 0.57-1.25 H (test code = 358) GLUCOSE RANDOM 112 mg/dL 70-105 H (BEAKER) (test code = 652) CALCIUM (BEAKER) 9.0 mg/dL 8.4-10.2 (test code = 697) EGFR (BEAKER) (test mL/min/1.73 INSUFFIC IENT CLINICAL code = 1092) sq m DATA TO CALCULA TE ESTIMATED GFR. Specimen markedly ictericPT/[id number] 07:13:00 Test Item Value Reference Range Interpretation Comments PROTIME (BEAKER) (test code = 29.2 seconds 11.7-14.7 H 759) INR (BEAKER) (test code = 370) 2.8 <=5.9 PARTIAL THROMBOPLASTIN TIME 64.3 seconds 22.5-36.0 H (BEAKER) (test code = 760) RECOMMENDED COUMADIN/WARFARIN INR THERAPY RANGESSTANDARD DOSE: 2.0 - 3.0 Includes: PROPHYLAXIS forvenous thrombosis, systemic embolization; TREATMENT for venous thrombosis and/or pulmonary embolus.HIGH RISK: Target INR is 2.5-3.5 for patients with mechanical heart valves.CBC W/PLT COUNT & AUTO DIFFERENTIAL 2018-04-06 07:10:00 Test Item Value Reference Range Interpretation Comments WHITE BLOOD CELL COUNT (BEAKER) 9.1 K/ L 3.5-10.5 (test code = 775) RED BLOOD CELL COUNT (BEAKER) 2.43 M/ L 3.93-5.22 L (test code = 761) HEMOGLOBIN (BEAKER) (test code = 7.9 GM/DL 11.2-15.7 L 410) HEMATOCRIT (BEAKER) (test code = 21.9 % 34.1-44.9 L 411) MEAN CORPUSCULAR VOLUME (BEAKER) 90.1 fL 79.4-94.8 (test code = 753) MEAN CORPUSCULAR HEMOGLOBIN 32.5 pg 25.6-32.2 H (BEAKER) (test code = 751) MEAN CORPUSCULAR HEMOGLOBIN CONC 36.1 GM/DL 32.2-35.5 H (BEAKER) (test code = 752) RED CELL DISTRIBUTION WIDTH 20.8 % 11.7-14.4 H (BEAKER) (test code = 412) PLATELET COUNT (BEAKER) (test code 48 K/CU MM 150-450 L = 756) MEAN PLATELET VOLUME (BEAKER) 11.1 fL 9.4-12.3 (test code = 754) NUCLEATED RED BLOOD CELLS (BEAKER) 0 /100 WBC 0-0 (test code = 413) NEUTROPHILS RELATIVE PERCENT 73 % (BEAKER) (test code = 429) LYMPHOCYTES RELATIVE PERCENT 11 % (BEAKER) (test code = 430) MONOCYTES RELATIVE PERCENT 10 % (BEAKER) (test code = 431) EOSINOPHILS RELATIVE PERCENT 3 % (BEAKER) (test code = 432) BASOPHILS RELATIVE PERCENT 0 % (BEAKER) (test code = 437) NEUTROPHILS ABSOLUTE COUNT 6.62 K/ L 1.56-6.13 H (BEAKER) (test code = 670) LYMPHOCYTES ABSOLUTE COUNT 1.01 K/ L 1.18-3.74 L (BEAKER) (test code = 414) MONOCYTES ABSOLUTE COUNT (BEAKER) 0.87 K/ L 0.24-0.36 H (test code = 415) EOSINOPHILS ABSOLUTE COUNT 0.23 K/ L 0.04-0.36 (BEAKER) (test code = 416) BASOPHILS ABSOLUTE COUNT (BEAKER) 0.04 K/ L 0.01-0.08 (test code = 417) IMMATURE GRANULOCYTES-RELATIVE 4 % 0-1 H PERCENT (BEAKER) (test code = 2801) POCT-GLUCOSE [id number] 23:28:00 Test Item Value Reference Range Interpretation Comments POC-GLUCOSE METER 165 mg/dL 70-110 H TESTED AT [facility] [address] (BEAKER) (test code = [place] 1538) [id number] BASIC METABOLIC [id number] 17:43:00 Test Item Value Reference Range Interpretation Comments SODIUM (BEAKER) 125 meq/L 136-145 L (test code = 381) POTASSIUM (BEAKER) 3.2 meq/L 3.5-5.1 L (test code = 379) CHLORIDE (BEAKER) 94 meq/L 98-107 L (test code = 382) CO2 (BEAKER) (test 16 meq/L 22-29 L code = 355) BLOOD UREA NITROGEN 80 mg/dL 7-21 H (BEAKER) (test code = 354) CREATININE (BEAKER) 5.99 mg/dL 0.57-1.25 H (test code = 358) GLUCOSE RANDOM 114 mg/dL 70-105 H (BEAKER) (test code = 652) CALCIUM (BEAKER) 9.4 mg/dL 8.4-10.2 (test code = 697) EGFR (BEAKER) (test mL/min/1.73 INSUFFIC IENT CLINICAL code = 1092) sq m DATA TO CALCULA TE ESTIMATED GFR. Specimen markedly ictericHEMOGLOBIN AND [id number] 17:15:00 Test Item Value Reference Range Interpretation Comments HEMOGLOBIN (BEAKER) (test code = 7.5 GM/DL 11.2-15.7 L 410) HEMATOCRIT (BEAKER) (test code = 21.8 % 34.1-44.9 L 411) SODIUM, RANDOM [id number] 13:11:00 Test Item Value Reference Range Interpretation Comments SODIUM URINE (BEAKER) (test code = < meq/L 243) Reference Range: No NormalsCHLORIDE, RANDOM [id number] 13:11:00 Test Item Value Reference Range Interpretation Comments CHLORIDE URINE (BEAKER) (test code = < meq/L 682) Reference Range: No NormalsCREATININE, RANDOM [id number] 13:10:00 Test Item Value Reference Range Interpretation Comments CREATININE URINE ([facility]) (test 144.8 mg/dL code = 375) Reference Range: No NormalsPOTASSIUM, RANDOM [id number] 13:10:00 Test Item Value Reference Range Interpretation Comments POTASSIUM URINE (BEAKER) (test 33.8 meq/L code = 195) Reference Range: No NormalsPOCT-GLUCOSE [id number] 11:46:00 Test Item Value Reference Range Interpretation Comments POC-GLUCOSE METER 119 mg/dL 70-110 H TESTED AT [place] [address] ([facility]) (test code = [facility] 1538) [address] EBV ANTIBODY, [id number] 10:58:00 Test Item Value Reference Range Interpretation Comments LORNA ROJAS VIRAL CAPSID Positive Negative, Equivocal A ANTIGEN IGM ([facility]) (test code = 3418) Lorna Rojas Viral Capsid Antigen IgM Result Interpretation: </= 0.8 Al Negative 0.9-1.0 Al Equivocal >/= 1.1 Al PositiveCYTOMEGALOVIRUS ANTIBODY, [id number] 10:58:00 Test Item Value Reference Range Interpretation Comments CYTOMEGALOVIRUS IGM ANTIBODY Negative Negative, Equivocal ([facility]) (test code = 3437) CMV IgM Result Interpretation: </= 0.8 Al Negative 0.9-1.0 Al Equivocal >/= 1.1 Al PositivePOCT-GLUCOSE [id number] 09:12:00 Test Item Value Reference Range Interpretation Comments POC-GLUCOSE METER 132 mg/dL 70-110 H TESTED AT [place] [address] ([facility]) (test code = [facility] 1538) [address] FIBRIN SOLUBLE [id number] 08:21:00 Test Item Value Reference Range Interpretation Comments FIBRIN SOLUBLE MONOMER (BEAKER) (test POS 1+ code = 1416) HEPATIC FUNCTION [id number] 08:06:00 Test Item Value Reference Range Interpretation Comments TOTAL PROTEIN (BEAKER) (test code 5.5 gm/dL 6.0-8.3 L = 770) ALBUMIN (BEAKER) (test code = 2.9 g/dL 3.5-5.0 L 1145) BILIRUBIN TOTAL (BEAKER) (test 27.5 mg/dL 0.2-1.2 H code = 377) BILIRUBIN DIRECT (BEAKER) (test 17.6 mg/dL 0.1-0.5 H code = 706) ALKALINE PHOSPHATASE (BEAKER) 99 U/L 40-150 (test code = 346) AST (SGOT) (BEAKER) (test code = 97 U/L 5-34 H 353) ALT (SGPT) (BEAKER) (test code = 37 U/L 6-55 347) Specimen markedly ictericTHROMBOELASTOGRAPH (TEG)2018-04-05 08:01:00 Test Item Value Reference Range Interpretation Comments TEG ACTIVATED CLOTTING TIME 6.6 minutes 4.0-7.0 (BEAKER) (test code = 1407) TEG FIBRINOGEN ACTIVITY (BEAKER) 70.0 degrees 61.0-73.0 (test code = 1408) TEG PLT. AGGREGATION (BEAKER) 51.9 MM 55.0-65.0 L (test code = 1409) TEG FIBRINOLYSIS (BEAKER) (test 0.3 % 0.0-5.0 code = 1410) TGH ACTIVATED CLOTTING TIME 6.3 minutes 4.0-7.0 (BEAKER) (test code = 1411) TGH FIBRINOGEN ACTIVITY (BEAKER) 66.7 degrees 61.0-73.0 (test code = 1412) TGH PLT. AGGREGATION (BEAKER) 48.9 MM 55.0-65.0 L (test code = 1413) TGH FIBRINOLYSIS (BEAKER) (test 0.2 % 0.0-5.0 code = 1414) BASIC METABOLIC [id number] 07:26:00 Test Item Value Reference Range Interpretation Comments SODIUM (BEAKER) 124 meq/L 136-145 L (test code = 381) POTASSIUM (BEAKER) 3.4 meq/L 3.5-5.1 L (test code = 379) CHLORIDE (BEAKER) 94 meq/L 98-107 L (test code = 382) CO2 (BEAKER) (test 17 meq/L 22-29 L code = 355) BLOOD UREA NITROGEN 79 mg/dL 7-21 H (BEAKER) (test code = 354) CREATININE (BEAKER) 5.77 mg/dL 0.57-1.25 H (test code = 358) GLUCOSE RANDOM 107 mg/dL 70-105 H (BEAKER) (test code = 652) CALCIUM (BEAKER) 9.4 mg/dL 8.4-10.2 (test code = 697) EGFR (BEAKER) (test mL/min/1.73 INSUFFIC IENT CLINICAL code = 1092) sq m DATA TO CALCULA TE ESTIMATED GFR. Specimen markedly [id number] 07:05:00 Test Item Value Reference Range Interpretation Comments D-DIMER QUANTITATIVE (BEAKER) 6.47 MG/L FEU <0.50 H (test code = 671) Intended Use: The D-Dimer Assay can be used to aid in the diagnosis of Deep Vein Thrombosis (DVT) and Pulmonary Embolism Disease (PED).In patients with low pre- test probability, various studies concerning STA Liatest D-dimer test have reported that with a cutoff value of 0.50 MG/L FEU, the Negative Predictive Value (NPV) regarding the exclusion of thrombosis is within 95-100% range. PT/[id number] 06:56:00 Test Item Value Reference Range Interpretation Comments PROTIME (BEAKER) (test code = 24.6 seconds 11.7-14.7 H 759) INR (BEAKER) (test code = 370) 2.2 <=5.9 PARTIAL THROMBOPLASTIN TIME 58.8 seconds 22.5-36.0 H (BEAKER) (test code = 760) RECOMMENDED COUMADIN/WARFARIN INR THERAPY RANGESSTANDARD DOSE: 2.0 - 3.0 Includes: PROPHYLAXIS forvenous thrombosis, systemic embolization; TREATMENT for venous thrombosis and/or pulmonary embolus.HIGH RISK: Target INR is 2.5-3.5 for patients with mechanical heart valves.[id number] 06:55:00 Test Item Value Reference Range Interpretation Comments FIBRINOGEN LEVEL (BEAKER) (test 237 mg/dl 225-434 code = 658) CBC W/PLT COUNT & AUTO [id number] 06:40:00 Test Item Value Reference Range Interpretation Comments WHITE BLOOD CELL COUNT (BEAKER) 7.8 K/ L 3.5-10.5 (test code = 775) RED BLOOD CELL COUNT (BEAKER) 2.38 M/ L 3.93-5.22 L (test code = 761) HEMOGLOBIN (BEAKER) (test code = 7.6 GM/DL 11.2-15.7 L 410) HEMATOCRIT (BEAKER) (test code = 21.6 % 34.1-44.9 L 411) MEAN CORPUSCULAR VOLUME (BEAKER) 90.8 fL 79.4-94.8 (test code = 753) MEAN CORPUSCULAR HEMOGLOBIN 31.9 pg 25.6-32.2 (BEAKER) (test code = 751) MEAN CORPUSCULAR HEMOGLOBIN CONC 35.2 GM/DL 32.2-35.5 (BEAKER) (test code = 752) RED CELL DISTRIBUTION WIDTH 21.0 % 11.7-14.4 H (BEAKER) (test code = 412) PLATELET COUNT (BEAKER) (test code 46 K/CU MM 150-450 L = 756) MEAN PLATELET VOLUME (BEAKER) 10.6 fL 9.4-12.3 (test code = 754) NUCLEATED RED BLOOD CELLS (BEAKER) 0 /100 WBC 0-0 (test code = 413) NEUTROPHILS RELATIVE PERCENT 73 % (BEAKER) (test code = 429) LYMPHOCYTES RELATIVE PERCENT 9 % (BEAKER) (test code = 430) MONOCYTES RELATIVE PERCENT 10 % (BEAKER) (test code = 431) EOSINOPHILS RELATIVE PERCENT 3 % (BEAKER) (test code = 432) BASOPHILS RELATIVE PERCENT 0 % (BEAKER) (test code = 437) NEUTROPHILS ABSOLUTE COUNT 5.74 K/ L 1.56-6.13 (BEAKER) (test code = 670) LYMPHOCYTES ABSOLUTE COUNT 0.70 K/ L 1.18-3.74 L (BEAKER) (test code = 414) MONOCYTES ABSOLUTE COUNT (BEAKER) 0.76 K/ L 0.24-0.36 H (test code = 415) EOSINOPHILS ABSOLUTE COUNT 0.27 K/ L 0.04-0.36 (BEAKER) (test code = 416) BASOPHILS ABSOLUTE COUNT (BEAKER) 0.02 K/ L 0.01-0.08 (test code = 417) IMMATURE GRANULOCYTES-RELATIVE 4 % 0-1 H PERCENT (BEAKER) (test code = 2801) POCT-GLUCOSE [id number] 22:06:00 Test Item Value Reference Range Interpretation Comments POC-GLUCOSE METER 119 mg/dL 70-110 H TESTED AT [facility] ([facility]) (test code = [place] 1538) [id number] BASIC METABOLIC [id number] 20:22:00 Test Item Value Reference Range Interpretation Comments SODIUM (BEAKER) 123 meq/L 136-145 L (test code = 381) POTASSIUM (BEAKER) 3.4 meq/L 3.5-5.1 L (test code = 379) CHLORIDE (BEAKER) 92 meq/L 98-107 L (test code = 382) CO2 (BEAKER) (test 16 meq/L 22-29 L code = 355) BLOOD UREA NITROGEN 73 mg/dL 7-21 H (BEAKER) (test code = 354) CREATININE (BEAKER) 5.51 mg/dL 0.57-1.25 H (test code = 358) GLUCOSE RANDOM 105 mg/dL 70-105 (BEAKER) (test code = 652) CALCIUM (BEAKER) 9.2 mg/dL 8.4-10.2 (test code = 697) EGFR (BEAKER) (test mL/min/1.73 INSUFFIC IENT CLINICAL code = 1092) sq m DATA TO CALCULA TE ESTIMATED GFR. Specimen markedly ictericHEMOGLOBIN AND [id number] 20:06:00 Test Item Value Reference Range Interpretation Comments HEMOGLOBIN (BEAKER) (test code = 7.7 GM/DL 11.2-15.7 L 410) HEMATOCRIT (BEAKER) (test code = 21.2 % 34.1-44.9 L 411) [id number] 18:55:00 Test Item Value Reference Range Interpretation Comments ALPHA-1 ANTITRYPSIN (BEAKER) 97.30 mg/dL 90.00-200.00 (test code = 502) HEPATITIS B SURFACE [id number] 18:48:00 Test Item Value Reference Range Interpretation Comments HEPATITIS B SURFACE ANTIGEN (2) Nonreactive Nonreactive (BEAKER) (test code = 2585) POCT-GLUCOSE [id number] 18:44:00 Test Item Value Reference Range Interpretation Comments POC-GLUCOSE METER 126 mg/dL 70-110 H TESTED AT [facility] [address] (BEAKER) (test code = [place] 1538) [id number] 17:53:00 Test Item Value Reference Range Interpretation Comments PROTIME (BEAKER) (test code = 22.2 seconds 11.7-14.7 H 759) INR (BEAKER) (test code = 370) 2.0 <=5.9 PARTIAL THROMBOPLASTIN TIME 57.8 seconds 22.5-36.0 H (BEAKER) (test code = 760) RECOMMENDED COUMADIN/WARFARIN INR THERAPY RANGESSTANDARD DOSE: 2.0 - 3.0 Includes: PROPHYLAXIS forvenous thrombosis, systemic embolization; TREATMENT for venous thrombosis and/or pulmonary embolus.HIGH RISK: Target INR is 2.5-3.5 for patients with mechanical heart valves.[id number] 17:52:00 Test Item Value Reference Range Interpretation Comments FIBRINOGEN LEVEL (BEAKER) (test 246 mg/dl 225-434 code = 658) HEMOGLOBIN AND [id number] 17:45:00 Test Item Value Reference Range Interpretation Comments HEMOGLOBIN (BEAKER) (test code = 7.7 GM/DL 11.2-15.7 L 410) HEMATOCRIT (BEAKER) (test code = 21.3 % 34.1-44.9 L 411) BODY FLUID CULTURE + GRAM [id number] 13:00:00 Test Item Value Reference Range Interpretation Comments CULTURE (BEAKER) No growth (test code = 1095) GRAM STAIN No WBCs This is an appe nded RESULT (BEAKER) report. Thes e (test code = results have be en 1123) appended to a previously preliminary kelli ified report. GRAM STAIN No organisms seen This is an appended RESULT (BEAKER) report. Thes [place] (test code = [place] [address]) appended to a previously preliminary kelli ified report. BASIC METABOLIC [id number] 12:46:00 Test Item Value Reference Range Interpretation Comments SODIUM (BEAKER) 124 meq/L 136-145 L (test code = 381) POTASSIUM (BEAKER) 3.7 meq/L 3.5-5.1 (test code = 379) CHLORIDE (BEAKER) 93 meq/L 98-107 L (test code = 382) CO2 (BEAKER) (test 16 meq/L 22-29 L code = 355) BLOOD UREA NITROGEN 70 mg/dL 7-21 H (BEAKER) (test code = 354) CREATININE (BEAKER) 5.57 mg/dL 0.57-1.25 H (test code = 358) GLUCOSE RANDOM 119 mg/dL 70-105 H (BEAKER) (test code = 652) CALCIUM (BEAKER) 9.1 mg/dL 8.4-10.2 (test code = 697) EGFR (BEAKER) (test mL/min/1.73 INSUFFIC IENT CLINICAL code = 1092) sq m DATA TO CALCULA TE ESTIMATED GFR. Specimen markedly ictericRAD, CHEST, 1 VIEW, NON [id number] 12:44:00Reason for exam:->hypoxiaShould this be performed at the bedside?->YesFINAL REPORT HISTORY : hypoxia. Comparison: 04/02/2018 Comment: Single portable view of the chest was obtained. The cardiac silhouette size is enlarged. There are findings of mild pulmonary venous congestion. Diffuse parenchymal airspace disease may represent interstitial edema. Pneumonitis cannot be excluded. Nasogastric tube is seen with the tip not included on the film. Stable right-sided internal jugular venous catheter is in place. No definite pneumothorax or pleural effusion is seen. An endotracheal tube is in place but appears to be entering into the right mainstem bronchus. The finding was communicated to nurse practitioner Max Reilly who indicated that the patient was already extubated shortly after the x-ray was taken. Signed: Ann Aguilar Verified Date/Time: 04/04/2018 12:44:49 Reading Location: [facility] Radiology Reading Room PROTHROMBIN TIME/[id number] 09:46:00 Test Item Value Reference Range Interpretation Comments PROTIME (BEAKER) (test code = 29.4 seconds 11.7-14.7 H 759) INR (BEAKER) (test code = 370) 2.8 <=5.9 RECOMMENDED COUMADIN/WARFARIN INR THERAPY RANGESSTANDARD DOSE: 2.0 - 3.0 Includes: PROPHYLAXIS forvenous thrombosis, systemic embolization; TREATMENT for venous thrombosis and/or pulmonary embolus.HIGH RISK: Target INR is 2.5-3.5 for patients with mechanical heart valves.[id number] 09:46:00 Test Item Value Reference Range Interpretation Comments FIBRINOGEN LEVEL (BEAKER) (test 177 mg/dl 225-434 L code = 658) BASIC METABOLIC [id number] 08:21:00 Test Item Value Reference Range Interpretation Comments SODIUM (BEAKER) 122 meq/L 136-145 L (test code = 381) POTASSIUM (BEAKER) 3.4 meq/L 3.5-5.1 L (test code = 379) CHLORIDE (BEAKER) 91 meq/L 98-107 L (test code = 382) CO2 (BEAKER) (test 19 meq/L 22-29 L code = 355) BLOOD UREA NITROGEN 72 mg/dL 7-21 H (BEAKER) (test code = 354) CREATININE (BEAKER) 5.66 mg/dL 0.57-1.25 H (test code = 358) GLUCOSE RANDOM 123 mg/dL 70-105 H (BEAKER) (test code = 652) CALCIUM (BEAKER) 8.9 mg/dL 8.4-10.2 (test code = 697) EGFR (BEAKER) (test mL/min/1.73 INSUFFIC IENT CLINICAL code = 1092) sq m DATA TO CALCULA TE ESTIMATED GFR. Specimen markedly ictericPOCT-GLUCOSE [id number] 07:47:00 Test Item Value Reference Range Interpretation Comments POC-GLUCOSE METER 143 mg/dL 70-110 H TESTED AT [facility] (BEAKER) (test code = [place] Karen [place] 1538) [id number] HEMOGLOBIN AND [id number] 07:41:00 Test Item Value Reference Range Interpretation Comments HEMOGLOBIN (BEAKER) (test code = 8.3 GM/DL 11.2-15.7 L 410) HEMATOCRIT (BEAKER) (test code = 22.6 % 34.1-44.9 L 411) FIBRIN SOLUBLE [id number] 05:48:00 Test Item Value Reference Range Interpretation Comments FIBRIN SOLUBLE MONOMER (BEAKER) (test POS 1+ code = 1416) THROMBOELASTOGRAPH (TEG)2018-04-04 05:29:00 Test Item Value Reference Range Interpretation Comments TEG ACTIVATED CLOTTING TIME 8.0 minutes 4.0-7.0 H (BEAKER) (test code = 1407) TEG FIBRINOGEN ACTIVITY (BEAKER) 62.3 degrees 61.0-73.0 (test code = 1408) TEG PLT. AGGREGATION (BEAKER) 49.6 MM 55.0-65.0 L (test code = 1409) TEG FIBRINOLYSIS (BEAKER) (test 0.0 % 0.0-5.0 code = 1410) TGH ACTIVATED CLOTTING TIME 7.7 minutes 4.0-7.0 H (BEAKER) (test code = 1411) TGH FIBRINOGEN ACTIVITY (BEAKER) 64.2 degrees 61.0-73.0 (test code = 1412) TGH PLT. AGGREGATION (BEAKER) 45.7 MM 55.0-65.0 L (test code = 1413) TGH FIBRINOLYSIS (BEAKER) (test 0.0 % 0.0-5.0 code = 1414) [id number] 04:24:00 Test Item Value Reference Range Interpretation Comments D-DIMER QUANTITATIVE (BEAKER) 7.38 MG/L FEU <0.50 H (test code = 671) Intended Use: The D-Dimer Assay can be used to aid in the diagnosis of Deep Vein Thrombosis (DVT) and Pulmonary Embolism Disease (PED).In patients with low pre- test probability, various studies concerning STA Liatest D-dimer test have reported that with a cutoff value of 0.50 MG/L FEU, the Negative Predictive Value (NPV) regarding the exclusion of thrombosis is within 95-100% range. [id number] 04:15:00 Test Item Value Reference Range Interpretation Comments FIBRINOGEN LEVEL (BEAKER) (test 159 mg/dl 225-434 L code = 658) [id number] 04:15:00 Test Item Value Reference Range Interpretation Comments PROTIME (BEAKER) (test code = 28.0 seconds 11.7-14.7 H 759) INR (BEAKER) (test code = 370) 2.6 <=5.9 PARTIAL THROMBOPLASTIN TIME 74.9 seconds 22.5-36.0 H (BEAKER) (test code = 760) RECOMMENDED COUMADIN/WARFARIN INR THERAPY RANGESSTANDARD DOSE: 2.0 - 3.0 Includes: PROPHYLAXIS forvenous thrombosis, systemic embolization; TREATMENT for venous thrombosis and/or pulmonary embolus.HIGH RISK: Target INR is 2.5-3.5 for patients with mechanical heart valves.HEPATIC FUNCTION [id number] 04:13:00 Test Item Value Reference Range Interpretation Comments TOTAL PROTEIN (BEAKER) (test code 5.0 gm/dL 6.0-8.3 L = 770) ALBUMIN (BEAKER) (test code = 2.6 g/dL 3.5-5.0 L 1145) BILIRUBIN TOTAL (BEAKER) (test 26.9 mg/dL 0.2-1.2 H code = 377) BILIRUBIN DIRECT (BEAKER) (test 18.1 mg/dL 0.1-0.5 H code = 706) ALKALINE PHOSPHATASE (BEAKER) 100 U/L 40-150 (test code = 346) AST (SGOT) (BEAKER) (test code = 92 U/L 5-34 H 353) ALT (SGPT) (BEAKER) (test code = 37 U/L 6-55 347) Specimen markedly ictericBASIC METABOLIC [id number] 04:13:00 Test Item Value Reference Range Interpretation Comments SODIUM (BEAKER) 121 meq/L 136-145 L (test code = 381) POTASSIUM (BEAKER) 3.2 meq/L 3.5-5.1 L (test code = 379) CHLORIDE (BEAKER) 90 meq/L 98-107 L (test code = 382) CO2 (BEAKER) (test 18 meq/L 22-29 L code = 355) BLOOD UREA NITROGEN 72 mg/dL 7-21 H (BEAKER) (test code = 354) CREATININE (BEAKER) 5.65 mg/dL 0.57-1.25 H (test code = 358) GLUCOSE RANDOM 115 mg/dL 70-105 H (BEAKER) (test code = 652) CALCIUM (BEAKER) 8.5 mg/dL 8.4-10.2 (test code = 697) EGFR (BEAKER) (test mL/min/1.73 INSUFFIC IENT CLINICAL code = 1092) sq m DATA TO CALCULA TE ESTIMATED GFR. Specimen markedly ictericLACTIC ACID, VENOUS, WHOLE [id number] 03:52:00 Test Item Value Reference Range Interpretation Comments LACTATE BLOOD VENOUS (2) (BEAKER) 0.9 mmol/L 0.5-2.2 (test code = 2872) Effective 10/08/2015: Units/Reference Range ChangeNew: 0.5-2.2 mmol/L Previous: 5-20 mg/dLSpecimen markedly ictericCBC W/PLT COUNT & AUTO DIFFERENTIAL 2018-04-04 03:40:00 Test Item Value Reference Range Interpretation Comments WHITE BLOOD CELL COUNT (BEAKER) 8.0 K/ L 3.5-10.5 (test code = 775) RED BLOOD CELL COUNT (BEAKER) 2.49 M/ L 3.93-5.22 L (test code = 761) HEMOGLOBIN (BEAKER) (test code = 8.1 GM/DL 11.2-15.7 L 410) HEMATOCRIT (BEAKER) (test code = 22.0 % 34.1-44.9 L 411) MEAN CORPUSCULAR VOLUME (BEAKER) 88.4 fL 79.4-94.8 (test code = 753) MEAN CORPUSCULAR HEMOGLOBIN 32.5 pg 25.6-32.2 H (BEAKER) (test code = 751) MEAN CORPUSCULAR HEMOGLOBIN CONC 36.8 GM/DL 32.2-35.5 H (BEAKER) (test code = 752) RED CELL DISTRIBUTION WIDTH 20.6 % 11.7-14.4 H (BEAKER) (test code = 412) PLATELET COUNT (BEAKER) (test code 61 K/CU MM 150-450 L = 756) MEAN PLATELET VOLUME (BEAKER) 10.0 fL 9.4-12.3 (test code = 754) NUCLEATED RED BLOOD CELLS (BEAKER) 0 /100 WBC 0-0 (test code = 413) NEUTROPHILS RELATIVE PERCENT 74 % (BEAKER) (test code = 429) LYMPHOCYTES RELATIVE PERCENT 9 % (BEAKER) (test code = 430) MONOCYTES RELATIVE PERCENT 9 % (BEAKER) (test code = 431) EOSINOPHILS RELATIVE PERCENT 3 % (BEAKER) (test code = 432) BASOPHILS RELATIVE PERCENT 0 % (BEAKER) (test code = 437) NEUTROPHILS ABSOLUTE COUNT 5.93 K/ L 1.56-6.13 (BEAKER) (test code = 670) LYMPHOCYTES ABSOLUTE COUNT 0.70 K/ L 1.18-3.74 L (BEAKER) (test code = 414) MONOCYTES ABSOLUTE COUNT (BEAKER) 0.73 K/ L 0.24-0.36 H (test code = 415) EOSINOPHILS ABSOLUTE COUNT 0.23 K/ L 0.04-0.36 (BEAKER) (test code = 416) BASOPHILS ABSOLUTE COUNT (BEAKER) 0.01 K/ L 0.01-0.08 (test code = 417) IMMATURE GRANULOCYTES-RELATIVE 5 % 0-1 H PERCENT (BEAKER) (test code = 2809) BASIC METABOLIC [id number] 01:57:00 Test Item Value Reference Range Interpretation Comments SODIUM (BEAKER) 122 meq/L 136-145 L (test code = 381) POTASSIUM (BEAKER) 3.1 meq/L 3.5-5.1 L (test code = 379) CHLORIDE (BEAKER) 90 meq/L 98-107 L (test code = 382) CO2 (BEAKER) (test 18 meq/L 22-29 L code = 355) BLOOD UREA NITROGEN 72 mg/dL 7-21 H (BEAKER) (test code = 354) CREATININE (BEAKER) 5.65 mg/dL 0.57-1.25 H (test code = 358) GLUCOSE RANDOM 118 mg/dL 70-105 H (BEAKER) (test code = 652) CALCIUM (BEAKER) 8.8 mg/dL 8.4-10.2 (test code = 697) EGFR (BEAKER) (test mL/min/1.73 INSUFFIC IENT CLINICAL code = 1092) sq m DATA TO CALCULA TE ESTIMATED GFR. Specimen markedly ictericHEMOGLOBIN AND [id number] 01:23:00 Test Item Value Reference Range Interpretation Comments HEMOGLOBIN (BEAKER) (test code = 8.2 GM/DL 11.2-15.7 L 410) HEMATOCRIT (BEAKER) (test code = 21.9 % 34.1-44.9 L 411) POCT-GLUCOSE [id number] 00:16:00 Test Item Value Reference Range Interpretation Comments POC-GLUCOSE METER 146 mg/dL 70-110 H TESTED AT [facility] [address] (BEAKER) (test code = [place] 1538) [id number] BASIC METABOLIC [id number] 20:47:00 Test Item Value Reference Range Interpretation Comments SODIUM (BEAKER) 121 meq/L 136-145 L (test code = 381) POTASSIUM (BEAKER) 3.2 meq/L 3.5-5.1 L (test code = 379) CHLORIDE (BEAKER) 88 meq/L 98-107 L (test code = 382) CO2 (BEAKER) (test 17 meq/L 22-29 L code = 355) BLOOD UREA NITROGEN 72 mg/dL 7-21 H (BEAKER) (test code = 354) CREATININE (BEAKER) 5.58 mg/dL 0.57-1.25 H (test code = 358) GLUCOSE RANDOM 119 mg/dL 70-105 H (BEAKER) (test code = 652) CALCIUM (BEAKER) 8.6 mg/dL 8.4-10.2 (test code = 697) EGFR (BEAKER) (test mL/min/1.73 INSUFFIC IENT CLINICAL code = 1092) sq m DATA TO CALCULA TE ESTIMATED GFR. Specimen markedly ictericHEMOGLOBIN AND [id number] 20:27:00 Test Item Value Reference Range Interpretation Comments HEMOGLOBIN (BEAKER) (test code = 8.1 GM/DL 11.2-15.7 L 410) HEMATOCRIT (BEAKER) (test code = 21.7 % 34.1-44.9 L 411) BASIC METABOLIC [id number] 17:45:00 Test Item Value Reference Range Interpretation Comments SODIUM (BEAKER) 119 meq/L 136-145 LL (test code = 381) POTASSIUM (BEAKER) 3.2 meq/L 3.5-5.1 L (test code = 379) CHLORIDE (BEAKER) 89 meq/L 98-107 L (test code = 382) CO2 (BEAKER) (test 19 meq/L 22-29 L code = 355) BLOOD UREA NITROGEN 69 mg/dL 7-21 H (BEAKER) (test code = 354) CREATININE (BEAKER) 5.54 mg/dL 0.57-1.25 H (test code = 358) GLUCOSE RANDOM 136 mg/dL 70-105 H (BEAKER) (test code = 652) CALCIUM (BEAKER) 8.6 mg/dL 8.4-10.2 (test code = 697) EGFR (BEAKER) (test mL/min/1.73 INSUFFIC IENT CLINICAL code = 1092) sq m DATA TO CALCULA TE ESTIMATED GFR. Specimen markedly ictericPOCT-GLUCOSE [id number] 17:29:00 Test Item Value Reference Range Interpretation Comments POC-GLUCOSE METER 158 mg/dL 70-110 H TESTED AT [facility] [address] (BEAKER) (test code = [place] 1538) [id number] HEMOGLOBIN AND [id number] 17:00:00 Test Item Value Reference Range Interpretation Comments HEMOGLOBIN (BEAKER) (test code = 8.2 GM/DL 11.2-15.7 L 410) HEMATOCRIT (BEAKER) (test code = 22.3 % 34.1-44.9 L 411) BASIC METABOLIC [id number] 14:04:00 Test Item Value Reference Range Interpretation Comments SODIUM (BEAKER) 118 meq/L 136-145 LL (test code = 381) POTASSIUM (BEAKER) 3.3 meq/L 3.5-5.1 L (test code = 379) CHLORIDE (BEAKER) 87 meq/L 98-107 L (test code = 382) CO2 (BEAKER) (test 18 meq/L 22-29 L code = 355) BLOOD UREA NITROGEN 68 mg/dL 7-21 H (BEAKER) (test code = 354) CREATININE (BEAKER) 5.49 mg/dL 0.57-1.25 H (test code = 358) GLUCOSE RANDOM 122 mg/dL 70-105 H (BEAKER) (test code = 652) CALCIUM (BEAKER) 8.6 mg/dL 8.4-10.2 (test code = 697) EGFR (BEAKER) (test mL/min/1.73 INSUFFIC IENT CLINICAL code = 1092) sq m DATA TO CALCULA TE ESTIMATED GFR. Specimen markedly ictericHEPATIC FUNCTION [id number] 13:12:00 Test Item Value Reference Range Interpretation Comments TOTAL PROTEIN (BEAKER) (test code 5.5 gm/dL 6.0-8.3 L = 770) ALBUMIN (BEAKER) (test code = 2.8 g/dL 3.5-5.0 L 1145) BILIRUBIN TOTAL (BEAKER) (test 28.7 mg/dL 0.2-1.2 H code = 377) BILIRUBIN DIRECT (BEAKER) (test 19.2 mg/dL 0.1-0.5 H code = 706) ALKALINE PHOSPHATASE (BEAKER) 112 U/L 40-150 (test code = 346) AST (SGOT) (BEAKER) (test code = 97 U/L 5-34 H 353) ALT (SGPT) (BEAKER) (test code = 41 U/L 6-55 347) Specimen markedly ictericANTI-NUCLEAR ANTIBODY (LUKASZ)2018-04-03 13:07:00 Test Item Value Reference Range Interpretation Comments ANTI-NUCLEAR ANTIBODY (LUKASZ) ([facility]) Negative Negative (test code = 418) Test performed by IFA method.Test performed by IFA method.VANCOMYCIN LEVEL, [id number] 12:02:00 Test Item Value Reference Range Interpretation Comments VANCOMYCIN RANDOM ([facility]) (test 15.0 ug/mL code = 523) Reference Range: No NormalsPT/[id number] 11:52:00 Test Item Value Reference Range Interpretation Comments PROTIME ([facility]) (test code = 27.6 seconds 11.7-14.7 H 759) INR ([facility]) (test code = 370) 2.6 <=5.9 PARTIAL THROMBOPLASTIN TIME 68.1 seconds 22.5-36.0 H ([facility]) (test code = 760) RECOMMENDED COUMADIN/WARFARIN INR THERAPY RANGESSTANDARD DOSE: 2.0 - 3.0 Includes: PROPHYLAXIS forvenous thrombosis, systemic embolization; TREATMENT for venous thrombosis and/or pulmonary embolus.HIGH RISK: Target INR is 2.5-3.5 for patients with mechanical heart valves.[id number] 11:51:00 Test Item Value Reference Range Interpretation Comments FIBRINOGEN LEVEL ([facility]) (test 211 mg/dl 225-434 L code = 658) POCT-GLUCOSE [id number] 11:34:00 Test Item Value Reference Range Interpretation Comments POC-GLUCOSE METER 137 mg/dL 70-110 H TESTED AT [facility] [address] ([facility]) (test code = [place] 1538) [id number] THROMBOELASTOGRAPH (TEG)2018-04-03 09:44:00 Test Item Value Reference Range Interpretation Comments TEG ACTIVATED CLOTTING TIME 6.1 minutes 4.0-7.0 ([facility]) (test code = 1407) TEG FIBRINOGEN ACTIVITY ([facility]) 69.1 degrees 61.0-73.0 (test code = 1408) TEG PLT. AGGREGATION ([facility]) 53.4 MM 55.0-65.0 L (test code = 1409) TEG FIBRINOLYSIS ([facility]) (test 0.2 % 0.0-5.0 code = 1410) TGH ACTIVATED CLOTTING TIME 5.8 minutes 4.0-7.0 (BEAKER) (test code = 1411) TGH FIBRINOGEN ACTIVITY (BEAKER) 68.9 degrees 61.0-73.0 (test code = 1412) TGH PLT. AGGREGATION (BEAKER) 50.9 MM 55.0-65.0 L (test code = 1413) TGH FIBRINOLYSIS (BEAKER) (test 0.7 % 0.0-5.0 code = 1414) BASIC METABOLIC [id number] 08:55:00 Test Item Value Reference Range Interpretation Comments SODIUM (BEAKER) 118 meq/L 136-145 LL (test code = 381) POTASSIUM (BEAKER) 3.2 meq/L 3.5-5.1 L (test code = 379) CHLORIDE (BEAKER) 87 meq/L 98-107 L (test code = 382) CO2 (BEAKER) (test 18 meq/L 22-29 L code = 355) BLOOD UREA NITROGEN 67 mg/dL 7-21 H (BEAKER) (test code = 354) CREATININE (BEAKER) 5.34 mg/dL 0.57-1.25 H (test code = 358) GLUCOSE RANDOM 122 mg/dL 70-105 H (BEAKER) (test code = 652) CALCIUM (BEAKER) 8.5 mg/dL 8.4-10.2 (test code = 697) EGFR (BEAKER) (test mL/min/1.73 INSUFFIC IENT CLINICAL code = 1092) sq m DATA TO CALCULA TE ESTIMATED GFR. Specimen markedly ictericURINE [id number] 08:48:00 Test Item Value Reference Range Interpretation Comments CULTURE (BEAKER) (test code = 1095) No growth HEPATITIS PANEL, [id number] 08:39:00 Test Item Value Reference Range Interpretation Comments HEPATITIS A IGM ANTIBODY (BEAKER) Nonreactive Nonreactive (test code = 498) HEPATITIS B CORE IGM ANTIBODY Nonreactive Nonreactive (BEAKER) (test code = 645) HEPATITIS C ANTIBODY (BEAKER) Nonreactive Nonreactive (test code = 367) HEPATITIS B SURFACE ANTIGEN (2) Nonreactive Nonreactive (BEAKER) (test code = 2585) POCT-GLUCOSE [id number] 08:28:00 Test Item Value Reference Range Interpretation Comments POC-GLUCOSE METER 141 mg/dL 70-110 H TESTED AT [facility] [address] (BEAKER) (test code = [place] 1538) [id number] HEMOGLOBIN AND [id number] 08:14:00 Test Item Value Reference Range Interpretation Comments HEMOGLOBIN (BEAKER) (test code = 8.3 GM/DL 11.2-15.7 L 410) HEMATOCRIT (BEAKER) (test code = 22.3 % 34.1-44.9 L 411) THROMBOELASTOGRAPH (TEG)2018-04-03 05:53:00 Test Item Value Reference Range Interpretation Comments TEG ACTIVATED CLOTTING TIME 8.2 minutes 4.0-7.0 H (BEAKER) (test code = 1407) TEG FIBRINOGEN ACTIVITY (BEAKER) 60.3 degrees 61.0-73.0 L (test code = 1408) TEG PLT. AGGREGATION (BEAKER) 51.1 MM 55.0-65.0 L (test code = 1409) TEG FIBRINOLYSIS (BEAKER) (test 0.0 % 0.0-5.0 code = 1410) TGH ACTIVATED CLOTTING TIME 8.0 minutes 4.0-7.0 H (BEAKER) (test code = 1411) TGH FIBRINOGEN ACTIVITY (BEAKER) 68.5 degrees 61.0-73.0 (test code = 1412) TGH PLT. AGGREGATION (BEAKER) 30.6 MM 55.0-65.0 L (test code = 1413) TGH FIBRINOLYSIS (BEAKER) (test 0.0 % 0.0-5.0 code = 1414) BASIC METABOLIC [id number] 04:54:00 Test Item Value Reference Range Interpretation Comments SODIUM (BEAKER) 119 meq/L 136-145 LL (test code = 381) POTASSIUM (BEAKER) 3.3 meq/L 3.5-5.1 L (test code = 379) CHLORIDE (BEAKER) 87 meq/L 98-107 L (test code = 382) CO2 (BEAKER) (test 18 meq/L 22-29 L code = 355) BLOOD UREA NITROGEN 65 mg/dL 7-21 H (BEAKER) (test code = 354) CREATININE (BEAKER) 5.40 mg/dL 0.57-1.25 H (test code = 358) GLUCOSE RANDOM 126 mg/dL 70-105 H (BEAKER) (test code = 652) CALCIUM (BEAKER) 8.6 mg/dL 8.4-10.2 (test code = 697) EGFR (BEAKER) (test mL/min/1.73 INSUFFIC IENT CLINICAL code = 1092) sq m DATA TO CALCULA TE ESTIMATED GFR. Specimen markedly ictericFIBRIN SOLUBLE [id number] 04:51:00 Test Item Value Reference Range Interpretation Comments FIBRIN SOLUBLE MONOMER (BEAKER) Negative (test code = 1416) [id number] 04:40:00 Test Item Value Reference Range Interpretation Comments D-DIMER QUANTITATIVE (BEAKER) 9.49 MG/L FEU <0.50 H (test code = 671) Intended Use: The D-Dimer Assay can be used to aid in the diagnosis of Deep Vein Thrombosis (DVT) and Pulmonary Embolism Disease (PED).In patients with low pre- test probability, various studies concerning STA Liatest D-dimer test have reported that with a cutoff value of 0.50 MG/L FEU, the Negative Predictive Value (NPV) regarding the exclusion of thrombosis is within 95-100% range.CBC W/PLT COUNT & AUTO [id number] 04:38:00 Test Item Value Reference Range Interpretation Comments WHITE BLOOD CELL COUNT 9.1 K/ L 3.5-10.5 (BEAKER) (test code = 775) RED BLOOD CELL COUNT 2.46 M/ L 3.93-5.22 L (BEAKER) (test code = 761) HEMOGLOBIN (BEAKER) 7.9 GM/DL 11.2-15.7 L (test code = 410) HEMATOCRIT (BEAKER) 21.8 % 34.1-44.9 L (test code = 411) MEAN CORPUSCULAR VOLUME 88.6 fL 79.4-94.8 ADAM SFUSED 1 UNIT (BEAKER) (test code = LRBC'S PER ANTWNO 753) [id number] MEAN CORPUSCULAR 32.1 pg 25.6-32.2 HEMOGLOBIN (BEAKER) (test code = 751) MEAN CORPUSCULAR 36.2 GM/DL 32.2-35.5 H HEMOGLOBIN CONC (BEAKER) (test code = 752) RED CELL DISTRIBUTION 19.7 % 11.7-14.4 H WIDTH (BEAKER) (test code = 412) PLATELET COUNT (BEAKER) 67 K/CU MM 150-450 L ADAM SFUSED 1 UNIT (test code = 756) LRBC'S PER ANTWON [id number] MEAN PLATELET VOLUME 9.8 fL 9.4-12.3 (BEAKER) (test code = 754) NUCLEATED RED BLOOD 0 /100 WBC 0-0 CELLS (BEAKER) (test code = 413) NEUTROPHILS RELATIVE 78 % PERCENT (BEAKER) (test code = 429) LYMPHOCYTES RELATIVE 6 % PERCENT (BEAKER) (test code = 430) MONOCYTES RELATIVE 11 % PERCENT (BEAKER) (test code = 431) EOSINOPHILS RELATIVE 1 % PERCENT (BEAKER) (test code = 432) BASOPHILS RELATIVE 0 % PERCENT (BEAKER) (test code = 437) NEUTROPHILS ABSOLUTE 7.02 K/ L 1.56-6.13 H COUNT (BEAKER) (test code = 670) LYMPHOCYTES ABSOLUTE 0.51 K/ L 1.18-3.74 L COUNT (BEAKER) (test code = 414) MONOCYTES ABSOLUTE 0.98 K/ L 0.24-0.36 H COUNT (BEAKER) (test code = 415) EOSINOPHILS ABSOLUTE 0.12 K/ L 0.04-0.36 COUNT (BEAKER) (test code = 416) BASOPHILS ABSOLUTE 0.01 K/ L 0.01-0.08 COUNT (BEAKER) (test code = 417) IMMATURE 5 % 0-1 H GRANULOCYTES-RELATIVE PERCENT (BEAKER) (test code = 2801) [id number] 04:31:00 Test Item Value Reference Range Interpretation Comments PROTIME (BEAKER) (test code = 25.0 seconds 11.7-14.7 H 759) INR (BEAKER) (test code = 370) 2.3 <=5.9 PARTIAL THROMBOPLASTIN TIME 65.0 seconds 22.5-36.0 H (BEAKER) (test code = 760) RECOMMENDED COUMADIN/WARFARIN INR THERAPY RANGESSTANDARD DOSE: 2.0 - 3.0 Includes: PROPHYLAXIS forvenous thrombosis, systemic embolization; TREATMENT for venous thrombosis and/or pulmonary embolus.HIGH RISK: Target INR is 2.5-3.5 for patients with mechanical heart valves.[id number] 04:30:00 Test Item Value Reference Range Interpretation Comments FIBRINOGEN LEVEL (BEAKER) (test 212 mg/dl 225-434 L code = 658) LACTIC ACID, VENOUS, WHOLE [id number] 04:24:00 Test Item Value Reference Range Interpretation Comments LACTATE BLOOD VENOUS (2) (BEAKER) 1.0 mmol/L 0.5-2.2 (test code = 2872) Effective 10/08/2015: Units/Reference Range ChangeNew: 0.5-2.2 mmol/L Previous: 5-20 mg/dLSpecimen markedly ictericPOCT-GLUCOSE [id number] 04:05:00 Test Item Value Reference Range Interpretation Comments POC-GLUCOSE METER 150 mg/dL 70-110 H TESTED AT [facility] (BEAKER) (test code = [place] 1538) [id number] HEMOGLOBIN AND [id number] 02:43:00 Test Item Value Reference Range Interpretation Comments HEMOGLOBIN (BEAKER) (test code = 8.1 GM/DL 11.2-15.7 L 410) HEMATOCRIT (BEAKER) (test code = 22.6 % 34.1-44.9 L 411) POCT-GLUCOSE [id number] 00:44:00 Test Item Value Reference Range Interpretation Comments POC-GLUCOSE METER 143 mg/dL 70-110 H TESTED AT [facility] (test code = [facility] [place] 1538) [address] BASIC METABOLIC [id number] 00:43:00 Test Item Value Reference Range Interpretation Comments SODIUM (BEAKER) 117 meq/L 136-145 LL (test code = 381) POTASSIUM (BEAKER) 3.2 meq/L 3.5-5.1 L (test code = 379) CHLORIDE (BEAKER) 86 meq/L 98-107 L (test code = 382) CO2 (BEAKER) (test 15 meq/L 22-29 L code = 355) BLOOD UREA NITROGEN 64 mg/dL 7-21 H (BEAKER) (test code = 354) CREATININE (BEAKER) 5.15 mg/dL 0.57-1.25 H (test code = 358) GLUCOSE RANDOM 134 mg/dL 70-105 H (BEAKER) (test code = 652) CALCIUM (BEAKER) 8.5 mg/dL 8.4-10.2 (test code = 697) EGFR (BEAKER) (test mL/min/1.73 INSUFFIC IENT CLINICAL code = 1092) sq m DATA TO CALCULA TE ESTIMATED GFR. Specimen markedly ictericBASIC METABOLIC [id number] 22:23:00 Test Item Value Reference Range Interpretation Comments SODIUM (BEAKER) 119 meq/L 136-145 LL (test code = 381) POTASSIUM (BEAKER) 3.5 meq/L 3.5-5.1 (test code = 379) CHLORIDE (BEAKER) 87 meq/L 98-107 L (test code = 382) CO2 (BEAKER) (test 16 meq/L 22-29 L code = 355) BLOOD UREA NITROGEN 64 mg/dL 7-21 H (BEAKER) (test code = 354) CREATININE (BEAKER) 5.22 mg/dL 0.57-1.25 H (test code = 358) GLUCOSE RANDOM 151 mg/dL 70-105 H (BEAKER) (test code = 652) CALCIUM (BEAKER) 8.5 mg/dL 8.4-10.2 (test code = 697) EGFR (BEAKER) (test mL/min/1.73 INSUFFIC IE CLINICAL code = 1092) sq m DATA TO CALCULA TE ESTIMATED GFR. Specimen markedly ictericALPHA FETOPROTEIN (AFP), TUMOR [id number] 21:00:00 Test Item Value Reference Range Interpretation Comments ALPHA-FETOPROTEIN (BEAKER) (test 2.0 ng/mL <10.0 code = 1094) POCT-GLUCOSE [id number] 20:34:00 Test Item Value Reference Range Interpretation Comments POC-GLUCOSE METER 174 mg/dL 70-110 H TESTED AT [facility] [address] (BEAKER) (test code = [place] 1538) [id number] THROMBOELASTOGRAPH (TEG)2018-04-02 19:46:00 Test Item Value Reference Range Interpretation Comments TEG ACTIVATED CLOTTING TIME 5.7 minutes 4.0-7.0 (BEAKER) (test code = 1407) TEG FIBRINOGEN ACTIVITY (BEAKER) 66.0 degrees 61.0-73.0 (test code = 1408) TEG PLT. AGGREGATION (BEAKER) 48.5 MM 55.0-65.0 L (test code = 1409) TEG FIBRINOLYSIS (BEAKER) (test 0.0 % 0.0-5.0 code = 1410) TGH ACTIVATED CLOTTING TIME 5.5 minutes 4.0-7.0 (BEAKER) (test code = 1411) TGH FIBRINOGEN ACTIVITY (BEAKER) 65.6 degrees 61.0-73.0 (test code = 1412) TGH PLT. AGGREGATION (BEAKER) 42.8 MM 55.0-65.0 L (test code = 1413) TGH FIBRINOLYSIS (BEAKER) (test 0.0 % 0.0-5.0 code = 1414) PTH, [id number] 18:50:00 Test Item Value Reference Range Interpretation Comments PARATHYROID HORMONE INTACT 687.0 pg/mL 8.5-72.5 H (BEAKER) (test code = 577) BASIC METABOLIC [id number] 18:44:00 Test Item Value Reference Range Interpretation Comments SODIUM (BEAKER) 120 meq/L 136-145 LL (test code = 381) POTASSIUM (BEAKER) 3.1 meq/L 3.5-5.1 L (test code = 379) CHLORIDE (BEAKER) 91 meq/L 98-107 L (test code = 382) CO2 (BEAKER) (test 15 meq/L 22-29 L code = 355) BLOOD UREA NITROGEN 58 mg/dL 7-21 H (BEAKER) (test code = 354) CREATININE (BEAKER) 4.62 mg/dL 0.57-1.25 H (test code = 358) GLUCOSE RANDOM 151 mg/dL 70-105 H (BEAKER) (test code = 652) CALCIUM (BEAKER) 7.7 mg/dL 8.4-10.2 L (test code = 697) EGFR (BEAKER) (test mL/min/1.73 INSUFFIC IENT CLINICAL code = 1092) sq m DATA TO CALCULA TE ESTIMATED GFR. Specimen markedly [id number] 18:42:00 Test Item Value Reference Range Interpretation Comments PHOSPHORUS (BEAKER) (test code = 4.2 mg/dL 2.3-4.7 604) [id number] 18:37:00 Test Item Value Reference Range Interpretation Comments FIBRINOGEN LEVEL (BEAKER) (test 222 mg/dl 225-434 L code = 658) [id number] 18:37:00 Test Item Value Reference Range Interpretation Comments PROTIME (BEAKER) (test code = 22.6 seconds 11.7-14.7 H 759) INR (BEAKER) (test code = 370) 2.0 <=5.9 PARTIAL THROMBOPLASTIN TIME 64.2 seconds 22.5-36.0 H (BEAKER) (test code = 760) RECOMMENDED COUMADIN/WARFARIN INR THERAPY RANGESSTANDARD DOSE: 2.0 - 3.0 Includes: PROPHYLAXIS forvenous thrombosis, systemic embolization; TREATMENT for venous thrombosis and/or pulmonary embolus.HIGH RISK: Target INR is 2.5-3.5 for patients with mechanical heart valves.HEMOGLOBIN AND [id number] 18:26:00 Test Item Value Reference Range Interpretation Comments HEMOGLOBIN (BEAKER) (test code = 6.5 GM/DL 11.2-15.7 L 410) HEMATOCRIT (BEAKER) (test code = 17.9 % 34.1-44.9 L 411) THROMBOELASTOGRAPH (TEG)2018-04-02 13:57:00 Test Item Value Reference Range Interpretation Comments TEG ACTIVATED CLOTTING TIME 7.4 minutes 4.0-7.0 H (BEAKER) (test code = 1407) TEG FIBRINOGEN ACTIVITY (BEAKER) 51.2 degrees 61.0-73.0 L (test code = 1408) TEG PLT. AGGREGATION (BEAKER) 31.1 MM 55.0-65.0 L (test code = 1409) TEG FIBRINOLYSIS (BEAKER) (test 0.0 % 0.0-5.0 code = 1410) TGH ACTIVATED CLOTTING TIME 7.1 minutes 4.0-7.0 H (BEAKER) (test code = 1411) TGH FIBRINOGEN ACTIVITY (BEAKER) 53.0 degrees 61.0-73.0 L (test code = 1412) TGH PLT. AGGREGATION (BEAKER) 28.5 MM 55.0-65.0 L (test code = 1413) TGH FIBRINOLYSIS (BEAKER) (test 0.0 % 0.0-5.0 code = 1414) BASIC METABOLIC [id number] 13:21:00 Test Item Value Reference Range Interpretation Comments SODIUM (BEAKER) 117 meq/L 136-145 LL (test code = 381) POTASSIUM (BEAKER) 3.7 meq/L 3.5-5.1 (test code = 379) CHLORIDE (BEAKER) 86 meq/L 98-107 L (test code = 382) CO2 (BEAKER) (test 14 meq/L 22-29 L code = 355) BLOOD UREA NITROGEN 64 mg/dL 7-21 H (BEAKER) (test code = 354) CREATININE (BEAKER) 5.41 mg/dL 0.57-1.25 H (test code = 358) GLUCOSE RANDOM 104 mg/dL 70-105 (BEAKER) (test code = 652) CALCIUM (BEAKER) 7.9 mg/dL 8.4-10.2 L (test code = 697) EGFR (BEAKER) (test mL/min/1.73 INSUFFIC IENT CLINICAL code = 1092) sq m DATA TO CALCULA TE ESTIMATED GFR. Specimen markedly [id number] 13:10:00 Test Item Value Reference Range Interpretation Comments FIBRINOGEN LEVEL (BEAKER) (test 107 mg/dl 225-434 L code = 658) [id number] 13:06:00 Test Item Value Reference Range Interpretation Comments PROTIME (BEAKER) (test code = 41.0 seconds 11.7-14.7 H 759) INR (BEAKER) (test code = 370) 4.3 <=5.9 PARTIAL THROMBOPLASTIN TIME 92.1 seconds 22.5-36.0 H (BEAKER) (test code = 760) RECOMMENDED COUMADIN/WARFARIN INR THERAPY RANGESSTANDARD DOSE: 2.0 - 3.0 Includes: PROPHYLAXIS forvenous thrombosis, systemic embolization; TREATMENT for venous thrombosis and/or pulmonary embolus.HIGH RISK: Target INR is 2.5-3.5 for patients with mechanical heart valves.OXYGEN SATURATION, [id number] 12:54:00 Test Item Value Reference Range Interpretation Comments O2 SATURATION (MEASURED) (BEAKER) 86.9 % (test code = 1455) If patient has internal jugular ( IJ) or subclavian central line or PICC line. Draw from distal port. Label as central venous oxygen.POCT-GLUCOSE METER 2018-04-02 12:45:00 Test Item Value Reference Range Interpretation Comments POC-GLUCOSE METER 112 mg/dL 70-110 H TESTED AT [facility] ([facility]) (test code = [place] 1538) [address] [id number] 11:20:00 Test Item Value Reference Range Interpretation Comments FERRITIN (BEAKER) (test code = 361) 419 ng/mL 5-275 H HEPATITIS A ANTIBODY, [id number] 10:43:00 Test Item Value Reference Range Interpretation Comments HEPATITIS A IGG ANTIBODY (BEAKER) Reactive Nonreactive A (test code = 2797) HEPATITIS B SURFACE [id number] 10:43:00 Test Item Value Reference Range Interpretation Comments HEPATITIS B SURFACE ANTIBODY < mIU/mL <8.0 (BEAKER) (test code = 647) HEPATITIS B CORE ANTIBODY, [id number] 10:40:00 Test Item Value Reference Range Interpretation Comments HEPATITIS B CORE TOTAL ANTIBODY Nonreactive Nonreactive (BEAKER) (test code = 497) IRON, TIBC, % SAT. (WITHOUT FERRITIN)2018-04-02 10:24:00 Test Item Value Reference Range Interpretation Comments IRON (BEAKER) (test code = 547) 81 ug/dL 40-160 TOTAL IRON BINDING CAPACITY (BEAKER) 71 ug/dL 250-450 L (test code = 769) IRON % SATURATION (2) (BEAKER) (test 114 % 20-55 H code = 2590) IMMUNOGLOBULIN G (IGG)2018-04-02 10:19:00 Test Item Value Reference Range Interpretation Comments IMMUNOGLOBULIN G (IGG) (BEAKER) 1365 mg/dL 540-1,822 (test code = 427) [id number] 10:19:00 Test Item Value Reference Range Interpretation Comments ALPHA-1 ANTITRYPSIN (BEAKER) 90.30 mg/dL 90.00-200.00 (test code = 502) GAMMA GLUTAMYL TRANSFERASE (GGT)2018-04-02 10:04:00 Test Item Value Reference Range Interpretation Comments GAMMA GLUTAMYL TRANSFERASE (BEAKER) 70 U/L 9-64 H (test code = 364) Specimen markedly ictericHEMOGLOBIN AND [id number] 09:54:00 Test Item Value Reference Range Interpretation Comments HEMOGLOBIN (BEAKER) (test code = 6.5 GM/DL 11.2-15.7 L 410) HEMATOCRIT (BEAKER) (test code = 18.0 % 34.1-44.9 L 411) CBC W/PLT COUNT & AUTO [id number] 08:23:00 Test Item Value Reference Range Interpretation Comments WHITE BLOOD CELL COUNT (BEAKER) 10.0 K/ L 3.5-10.5 (test code = 775) RED BLOOD CELL COUNT (BEAKER) 1.98 M/ L 3.93-5.22 L (test code = 761) HEMOGLOBIN (BEAKER) (test code = 6.9 GM/DL 11.2-15.7 L 410) HEMATOCRIT (BEAKER) (test code = 18.6 % 34.1-44.9 L 411) MEAN CORPUSCULAR VOLUME (BEAKER) 93.9 fL 79.4-94.8 (test code = 753) MEAN CORPUSCULAR HEMOGLOBIN 34.8 pg 25.6-32.2 H (BEAKER) (test code = 751) MEAN CORPUSCULAR HEMOGLOBIN CONC 37.1 GM/DL 32.2-35.5 H (BEAKER) (test code = 752) RED CELL DISTRIBUTION WIDTH 20.3 % 11.7-14.4 H (BEAKER) (test code = 412) PLATELET COUNT (BEAKER) (test code 37 K/CU MM 150-450 L = 756) MEAN PLATELET VOLUME (BEAKER) 9.0 fL 9.4-12.3 L (test code = 754) NUCLEATED RED BLOOD CELLS (BEAKER) 0 /100 WBC 0-0 (test code = 413) NEUTROPHILS RELATIVE PERCENT 84 % (BEAKER) (test code = 429) LYMPHOCYTES RELATIVE PERCENT 4 % (BEAKER) (test code = 430) MONOCYTES RELATIVE PERCENT 7 % (BEAKER) (test code = 431) EOSINOPHILS RELATIVE PERCENT 1 % (BEAKER) (test code = 432) BASOPHILS RELATIVE PERCENT 0 % (BEAKER) (test code = 437) NEUTROPHILS ABSOLUTE COUNT 8.43 K/ L 1.56-6.13 H (BEAKER) (test code = 670) LYMPHOCYTES ABSOLUTE COUNT 0.43 K/ L 1.18-3.74 L (BEAKER) (test code = 414) MONOCYTES ABSOLUTE COUNT (BEAKER) 0.70 K/ L 0.24-0.36 H (test code = 415) EOSINOPHILS ABSOLUTE COUNT 0.07 K/ L 0.04-0.36 (BEAKER) (test code = 416) BASOPHILS ABSOLUTE COUNT (BEAKER) 0.02 K/ L 0.01-0.08 (test code = 417) IMMATURE GRANULOCYTES-RELATIVE 4 % 0-1 H PERCENT (BEAKER) (test code = 2801) POCT-GLUCOSE [id number] 07:46:00 Test Item Value Reference Range Interpretation Comments POC-GLUCOSE METER 128 mg/dL 70-110 H TESTED AT [facility] (BEAKER) (test code = [place] 1538) [address] BASIC METABOLIC [id number] 07:28:00 Test Item Value Reference Range Interpretation Comments SODIUM (BEAKER) 116 meq/L 136-145 LL (test code = 381) POTASSIUM (BEAKER) 3.7 meq/L 3.5-5.1 (test code = 379) CHLORIDE (BEAKER) 85 meq/L 98-107 L (test code = 382) CO2 (BEAKER) (test 15 meq/L 22-29 L code = 355) BLOOD UREA NITROGEN 62 mg/dL 7-21 H (BEAKER) (test code = 354) CREATININE (BEAKER) 5.38 mg/dL 0.57-1.25 H (test code = 358) GLUCOSE RANDOM 93 mg/dL 70-105 (BEAKER) (test code = 652) CALCIUM (BEAKER) 8.1 mg/dL 8.4-10.2 L (test code = 697) EGFR (BEAKER) (test mL/min/1.73 INSUFFIC IENT CLINICAL code = 1092) sq m DATA TO CALCULA TE ESTIMATED GFR. Specimen markedly ictericRAD, ABDOMEN/KUB, 1 VIEW [id number] 07:22:00Reason for exam:->feeding tube placementShould this be performed at the bedside?->YesFINAL REPORT CLINICAL HISTORY: feeding tube placement TECHNIQUE: Supine abdomen COMPARISON: None IMPRESSION: There is a nasogastric tube in the proximal stomach. There is nonspecific gaseous prominence of multiple, centrally displaced loops of small bowel. Free air and air-fluidlevels are not seen but cannot be definitively excluded on the supine view. Signed: Gabriel Rincon MDReport Verified Date/Time: 04/02/2018 07:22:00 Reading Location: [address] Neuro Reading Room LACTIC ACID, VENOUS, WHOLE BLOOD 2018-04-02 07:00:00 Test Item Value Reference Range Interpretation Comments LACTATE BLOOD VENOUS (2) (BEAKER) 1.2 mmol/L 0.5-2.2 (test code = 2872) Effective 10/08/2015: Units/Reference Range ChangeNew: 0.5-2.2 mmol/L Previous: 5-20 mg/dLSpecimen markedly ictericLACTIC ACID, VENOUS, WHOLE [id number] 06:14:00 Test Item Value Reference Range Interpretation Comments LACTATE BLOOD VENOUS (2) (BEAKER) 1.3 mmol/L 0.5-2.2 (test code = 2872) Effective 10/08/2015: Units/Reference Range ChangeNew: 0.5-2.2 mmol/L Previous: 5-20 mg/dLSpecimen markedly ictericBODY FLUID CELL COUNT WITH DIFFERENTIAL 2018-04-02 05:18:00 Test Item Value Reference Range Interpretation Comments APPEARANCE FLUID (BEAKER) Hazy Clear A (test code = 510) COLOR FLUID (BEAKER) (test Yellow Colorless, Straw A code = 511) RBC FLUID (BEAKER) (test code 839346 /cu mm <=1 H = 513) ADJUSTED WBC FLUID (BEAKER) 36674 /cu mm <=5 H (test code = 1691) LINING CELLS (BEAKER) (test 0 /cu mm <=1 code = 1590) NEUTROPHILS FLUID (BEAKER) 6 % (test code = 1656) LYMPHS FLUID (BEAKER) (test 38 % code = 488) MONO/MACROPHAGE FLUID (BEAKER) 56 % (test code = 489) EOSINOPHILS FLUID (BEAKER) 0 % (test code = 491) BASO FLUID (BEAKER) (test code 0 % = 492) CONTAINER BODY FLUID (BEAKER) EDTA Tube (test code = 2873) [id number] 05:06:00 Test Item Value Reference Range Interpretation Comments PROCALCITONIN (BEAKER) (test code 1.89 ng/mL <0.05 H = 3036) SEPSIS RISK (ng/mL)Low: 0.05-0.50Intermediate: 0.51-2.00High: >=2.01RAD, CHEST, 1 VIEW, NON [id number] 03:28:00Reason for exam:- >line placementShould this be performed at the bedside?->YesFINAL REPORT Chest one view. Clinical history: line placement Comparison: None. Technique: A single frontal view of the chest was obtained. Findings:There is a right IJ centralvenous catheter with tip in the distal SVC. The cardiac silhouette is mildly enlarged.There is pulmonary vascular congestion. There is no pleural effusion or pneumothorax. Signed: Radha Dodd Verified Date/Time: 04/02/2018 03:28:58 Reading Location: [place] [id number] CT Body Reading Room HEMOGLOBIN AND [id number] 02:56:00 Test Item Value Reference Range Interpretation Comments HEMOGLOBIN (BEAKER) (test code = 7.9 GM/DL 11.2-15.7 L 410) HEMATOCRIT (BEAKER) (test code = 20.9 % 34.1-44.9 L 411) LACTIC ACID, VENOUS, WHOLE [id number] 02:34:00 Test Item Value Reference Range Interpretation Comments LACTATE BLOOD VENOUS 1.5 mmol/L 0.5-2.2 Specime n slightly (2) (BEAKER) (test hemolyzed code = 2872) Effective 10/08/2015: Units/Reference Range ChangeNew: 0.5-2.2 mmol/L Previous: 5-20 mg/dLSpecimen markedly [id number] 00:58:00 Test Item Value Reference Range Interpretation Comments FIBRINOGEN LEVEL (BEAKER) (test code 76 mg/dl 225-434 LL = 658) [id number] 00:57:00 Test Item Value Reference Range Interpretation Comments HAPTOGLOBIN (BEAKER) (test code = < mg/dL 14-258 L 366) HIV-1 ANTIGEN WITH HIV-1/2 [id number] 00:57:00 Test Item Value Reference Range Interpretation Comments HIV-1 ANTIGEN WITH HIV 1\T\2 Nonreactive Nonreactive ANTIBODY (2) (BEAKER) (test code = 2586) [id number] 00:51:00 Test Item Value Reference Range Interpretation Comments D-DIMER QUANTITATIVE (ELYSE) 11.13 MG/L FEU <0.50 H (test code = 671) Intended Use: The D-Dimer Assay can be used to aid in the diagnosis of Deep Vein Thrombosis (DVT) and Pulmonary Embolism Disease (PED).In patients with low pre- test probability, various studies concerning STA Liatest D-dimer test have reported that with a cutoff value of 0.50 MG/L FEU, the Negative Predictive Value (NPV) regarding the exclusion of thrombosis is within 95-100% range.U/S, ABDOMINAL, [id number] 00:43:00Reason for exam:->acute liver failureShould this be performed at the bedside?->YesFINAL REPORT Ultrasound of the Abdomen, complete, with Doppler. Clinical History: acute liver failure Discussion: Sonographic evaluation of the abdomen was performed. Color andspectral Doppler evaluation of the hepatic and portal vasculature was performed. The study is limited due to excessive bowel gas. Liver: 12 cm in length at the right midclavicular line. Diffusely echogenic with nodular contours suggesting cirrhosis. 1.6 x 1.4 x 1.4 cm ill-defined hypoechoic lesionin the right hepatic lobe without vascular flow. Main portal vein diameter 0.8 cm. Biliary tree: Common duct not visualized due to obscuration by bowel gas. No intrahepatic biliary ductal dilatation. Gallbladder: Layering sludge. Top normal wall thickening, nonspecific. No pericholecystic fluid.Negative sonographic Figueroa's sign. Pancreas: Largely obscured by bowel gas but the visualized portions of the body are grossly unremarkable. Ascites: Small abdominal ascites. Spleen: 10.1 x 3.7 x 4.5 cm. Kidneys: Right kidney 10 x 4.4 x 4.8 cm with cortical thickness of 0.9 cm. Left kidney 10.1 x4.5 x 4.7 cm with cortical thickness of 0.9 cm. Mildly increased bilateral cortical echogenicity.No shadowing calculus or hydronephrosis. IVC/Aorta: Segments partially seen. Unremarkable. Color and spectral Doppler evaluation of the portal and hepatic vasculature demonstrates patency of the mainportal vein and branches however flow is hepatofugal. The main portal vein velocity is 25.8 cm/s. The proper, right and left hepatic arteries are patent with normal waveforms. The resistive indices of the proper, right and left hepatic arteries are 0.8 (mildly increased), 0.8 and 0.7. The splenic artery and vein at the hilum are patent with normal waveforms. The hepatic confluence, main hepatic veinand branches were not visualized. Impression:Limited exam. Cirrhotic morphology of the liver. 1.6 cmill-defined hypoechoic lesion in the liver of uncertain etiology or significance. Further evaluationwith a liver protocol CT or MRI is recommended to exclude hepatocellular carcinoma. Mildly echogenicbilateral kidneys suggesting medical renal disease. Small abdominal ascites. Doppler evaluation of the hepatic and portal vasculature demonstrates reversal of flow in the main portal vein and branches.Nonvisualization of the hepatic confluence, main hepatic vein and branches. Mildly increased resistive indices in the proper and right hepatic arteries. Signed: Radha Dodd MDReport Verified Date/Time: 04/02/2018 00:43:10 Reading Location: [address] Body Reading Room U/S, DUPLEX, DOPPLER 2018-04-02 00:43:00Reason for exam:->RUQ to assess for Budd chiari, portal HTNShould this be performed at the bedside?->YesFINAL REPORT Ultrasound of the Abdomen, complete, with Doppler. Clinical History: acute liver failure Discussion: Sonographic evaluation of the abdomen was performed. Color andspectral Doppler evaluation of the hepatic and portal vasculature was performed. The study is limited due to excessive bowel gas. Liver: 12 cm in length at the right midclavicular line. Diffusely echogenic with nodular contours suggesting cirrhosis. 1.6 x 1.4 x 1.4 cm ill-defined hypoechoic lesionin the right hepatic lobe without vascular flow. Main portal vein diameter 0.8 cm. Biliary tree: Common duct not visualized due to obscuration by bowel gas. No intrahepatic biliary ductal dilatation. Gallbladder: Layering sludge. Top normal wall thickening, nonspecific. No pericholecystic fluid.Negative sonographic Figueroa's sign. Pancreas: Largely obscured by bowel gas but the visualized portions of the body are grossly unremarkable. Ascites: Small abdominal ascites. Spleen: 10.1 x 3.7 x 4.5 cm. Kidneys: Right kidney 10 x 4.4 x 4.8 cm with cortical thickness of 0.9 cm. Left kidney 10.1 x4.5 x 4.7 cm with cortical thickness of 0.9 cm. Mildly increased bilateral cortical echogenicity.No shadowing calculus or hydronephrosis. IVC/Aorta: Segments partially seen. Unremarkable. Color and spectral Doppler evaluation of the portal and hepatic vasculature demonstrates patency of the mainportal vein and branches however flow is hepatofugal. The main portal vein velocity is 25.8 cm/s. The proper, right and left hepatic arteries are patent with normal waveforms. The resistive indices of the proper, right and left hepatic arteries are 0.8 (mildly increased), 0.8 and 0.7. The splenic artery and vein at the hilum are patent with normal waveforms. The hepatic confluence, main hepatic veinand branches were not visualized. Impression:Limited exam. Cirrhotic morphology of the liver. 1.6 cmill-defined hypoechoic lesion in the liver of uncertain etiology or significance. Further evaluationwith a liver protocol CT or MRI is recommended to exclude hepatocellular carcinoma. Mildly echogenicbilateral kidneys suggesting medical renal disease. Small abdominal ascites. Doppler evaluation of the hepatic and portal vasculature demonstrates reversal of flow in the main portal vein and branches.Nonvisualization of the hepatic confluence, main hepatic vein and branches. Mildly increased resistive indices in the proper and right hepatic arteries. Signed: Radha Dodd MDReport Verified Date/Time: 04/02/2018 00:43:10 Reading Location: [address] Body Reading Room [id number] 00:29:00 Test Item Value Reference Range Interpretation Comments AMYLASE (BEAKER) (test code = 349) 69 U/L 25-125 Specimen markedly [id number] 00:29:00 Test Item Value Reference Range Interpretation Comments LIPASE (BEAKER) (test code = 749) 127 U/L 8-78 H Specimen markedly ictericBLOOD GAS, [id number] 00:10:00 Test Item Value Reference Range Interpretation Comments PH ARTERIAL (BEAKER) (test code = 7.43 7.35-7.45 383) PCO2 ARTERIAL (BEAKER) (test code 29 mmHg 35-45 L = 384) PO2 ARTERIAL (BEAKER) (test code 99 mmHg 80-90 H = 385) O2 SATURATION ARTERIAL (BEAKER) 97.7 % 96.0-97.0 H (test code = 386) HCO3 ARTERIAL (BEAKER) (test code 19 mmol/L 21-29 L = 388) BASE EXCESS ARTERIAL (BEAKER) -4.9 mmol/L -2.0-3.0 L (test code = 387) PATIENT TEMPERATURE (BEAKER) 37.0 C (test code = 1818) FIO2 (BEAKER) (test code = 1819) 21.0 % BASIC METABOLIC [id number] 00:05:00 Test Item Value Reference Range Interpretation Comments SODIUM (BEAKER) 114 meq/L 136-145 LL (test code = 381) POTASSIUM (BEAKER) 3.8 meq/L 3.5-5.1 (test code = 379) CHLORIDE (BEAKER) 82 meq/L 98-107 L (test code = 382) CO2 (BEAKER) (test 17 meq/L 22-29 L code = 355) BLOOD UREA NITROGEN 64 mg/dL 7-21 H (BEAKER) (test code = 354) CREATININE (BEAKER) 5.80 mg/dL 0.57-1.25 H (test code = 358) GLUCOSE RANDOM 99 mg/dL 70-105 (BEAKER) (test code = 652) CALCIUM (BEAKER) 7.7 mg/dL 8.4-10.2 L (test code = 697) EGFR (BEAKER) (test mL/min/1.73 INSUFFIC IENT CLINICAL code = 1092) sq m DATA TO CALCULA TE ESTIMATED GFR. Specimen markedly ictericHEPATIC FUNCTION [id number] 23:46:00 Test Item Value Reference Range Interpretation Comments TOTAL PROTEIN (BEAKER) (test code 6.0 gm/dL 6.0-8.3 = 770) ALBUMIN (BEAKER) (test code = 2.2 g/dL 3.5-5.0 L 1145) BILIRUBIN TOTAL (BEAKER) (test 31.8 mg/dL 0.2-1.2 H code = 377) BILIRUBIN DIRECT (BEAKER) (test 22.0 mg/dL 0.1-0.5 H code = 706) ALKALINE PHOSPHATASE (BEAKER) 167 U/L 40-150 H (test code = 346) AST (SGOT) (BEAKER) (test code = 161 U/L 5-34 H 353) ALT (SGPT) (BEAKER) (test code = 59 U/L 6-55 H 347) Specimen markedly [id number] 23:42:00 Test Item Value Reference Range Interpretation Comments AMMONIA (BEAKER) (test code = 348) 118 mol/L 18-72 H [id number] 23:31:00 Test Item Value Reference Range Interpretation Comments ETHANOL (BEAKER) (test code = 400) < mg/dL <=10 CBC W/PLT COUNT & AUTO [id number] 23:29:00 Test Item Value Reference Range Interpretation Comments WHITE BLOOD CELL COUNT (BEAKER) 12.7 K/ L 3.5-10.5 H (test code = 775) RED BLOOD CELL COUNT (BEAKER) 2.46 M/ L 3.93-5.22 L (test code = 761) HEMOGLOBIN (BEAKER) (test code = 8.8 GM/DL 11.2-15.7 L 410) HEMATOCRIT (BEAKER) (test code = 25.7 % 34.1-44.9 L 411) MEAN CORPUSCULAR VOLUME (BEAKER) 104.5 fL 79.4-94.8 H (test code = 753) MEAN CORPUSCULAR HEMOGLOBIN 35.8 pg 25.6-32.2 H (BEAKER) (test code = 751) MEAN CORPUSCULAR HEMOGLOBIN CONC 34.2 GM/DL 32.2-35.5 (BEAKER) (test code = 752) RED CELL DISTRIBUTION WIDTH 20.6 % 11.7-14.4 H (BEAKER) (test code = 412) PLATELET COUNT (BEAKER) (test code 57 K/CU MM 150-450 L = 756) MEAN PLATELET VOLUME (BEAKER) 9.4 fL 9.4-12.3 (test code = 754) NUCLEATED RED BLOOD CELLS (BEAKER) 0 /100 WBC 0-0 (test code = 413) NEUTROPHILS RELATIVE PERCENT 85 % (BEAKER) (test code = 429) LYMPHOCYTES RELATIVE PERCENT 4 % (BEAKER) (test code = 430) MONOCYTES RELATIVE PERCENT 8 % (BEAKER) (test code = 431) EOSINOPHILS RELATIVE PERCENT 1 % (BEAKER) (test code = 432) BASOPHILS RELATIVE PERCENT 0 % (BEAKER) (test code = 437) NEUTROPHILS ABSOLUTE COUNT 10.79 K/ L 1.56-6.13 H (BEAKER) (test code = 670) LYMPHOCYTES ABSOLUTE COUNT 0.48 K/ L 1.18-3.74 L (BEAKER) (test code = 414) MONOCYTES ABSOLUTE COUNT (BEAKER) 1.00 K/ L 0.24-0.36 H (test code = 415) EOSINOPHILS ABSOLUTE COUNT 0.08 K/ L 0.04-0.36 (BEAKER) (test code = 416) BASOPHILS ABSOLUTE COUNT (BEAKER) 0.03 K/ L 0.01-0.08 (test code = 417) IMMATURE GRANULOCYTES-RELATIVE 3 % 0-1 H PERCENT (BEAKER) (test code = 2801) Washed to correct for high MCHCLACTIC ACID, VENOUS, WHOLE [id number] 23:28:00 Test Item Value Reference Range Interpretation Comments LACTATE BLOOD VENOUS (2) (BEAKER) 1.5 mmol/L 0.5-2.2 (test code = 2872) Effective 10/08/2015: Units/Reference Range ChangeNew: 0.5-2.2 mmol/L Previous: 5-20 mg/dLSpecimen markedly ictericPROTHROMBIN TIME/[id number] 23:27:00 Test Item Value Reference Range Interpretation Comments PROTIME (BEAKER) (test code = 43.4 seconds 11.7-14.7 H 759) INR (BEAKER) (test code = 370) 4.6 <=5.9 RECOMMENDED COUMADIN/WARFARIN INR THERAPY RANGESSTANDARD DOSE: 2.0 - 3.0 Includes: PROPHYLAXIS forvenous thrombosis, systemic embolization; TREATMENT for venous thrombosis and/or pulmonary embolus.HIGH RISK: Target INR is 2.5-3.5 for patients with mechanical heart valves.SODIUM, RANDOM [id number] 23:24:00 Test Item Value Reference Range Interpretation Comments SODIUM URINE (BEAKER) (test code = < meq/L 243) Reference Range: No NormalsCREATININE, RANDOM [id number] 23:20:00 Test Item Value Reference Range Interpretation Comments CREATININE URINE (BEAKER) (test 106.3 mg/dL code = 375) Reference Range: No NormalsURINALYSIS W/ [id number] 23:18:00 Test Item Value Reference Range Interpretation Comments COLOR (BEAKER) (test code = Dark Yellow 470) CLARITY (BEAKER) (test code = Clear 469) SPECIFIC GRAVITY UA (BEAKER) 1.011 1.001-1.035 (test code = 468) PH UA (BEAKER) (test code = 6.0 5.0-8.0 467) PROTEIN UA (BEAKER) (test code Negative Negative = 464) GLUCOSE UA (BEAKER) (test code Negative Negative = 365) KETONES UA (BEAKER) (test code 10 mg/dL Negative A = 371) BILIRUBIN UA (BEAKER) (test Positive Negative A code = 462) BLOOD UA (BEAKER) (test code = Negative Negative 461) NITRITE UA (BEAKER) (test code Negative Negative = 465) LEUKOCYTE ESTERASE UA (BEAKER) Negative Negative (test code = 466) UROBILINOGEN UA (BEAKER) (test 0.2 mg/dL 0.2-1.0 code = 463) RBC UA (BEAKER) (test code = < /HPF 519) WBC UA (BEAKER) (test code = 2 /HPF 520) BACTERIA (BEAKER) (test code = Rare 517) HYALINE CASTS (BEAKER) (test 2 /LPF code = 514) AMORPHOUS CRYSTALS (BEAKER) Occasional (test code = 1584) SOURCE(BEAKER) (test code = Urine, Voided 0606) OSMOLALITY, [id number] 23:16:00 Test Item Value Reference Range Interpretation Comments OSMOLALITY URINE (BEAKER) (test 334 mOsm/kg 40-1,400 code = 614)
[2020-12-08 18:05] LABS: Absolute Lymphocytes (CBC) 1.3 K/uL (0.7-4.9); Basophils % 0.4 % (0-1.3); Hematocrit 6.7 % (36.0-45.0); Lymphocytes % 14.6 % (15.3-44.8); MPV 6.9 fL (7.6-11.3); Protime INR 1.87; RBC Red Blood Cell Count 0.95 M/uL (3.86-4.86)
[2020-12-08 18:19] LABS: ALT/SGPT 10 U/L (12-78); AST/SGOT 21 U/L (15-37); Albumin 2.2 g/dL (3.4-5.0); Alkaline Phosphatase 73 U/L (45-117); BUN Blood Urea Nitrogen 19 mg/dL (7-18); Bicarbonate 28 mmol/L (21-32); Bilirubin Direct 2.8 mg/dL (0-0.2); Bilirubin Total 3.8 mg/dL (0.2-1.0); Glucose Level 91 mg/dL (74-106); Lipase 62 U/L (73-393); NT PRO-BNP 891 pg/mL (<125); Potassium 3.5 mmol/L (3.5-5.1); Protein, Total 6.3 g/dL (6.4-8.2); Sodium Level 127 mmol/L (136-145); Troponin (Emerg Dept Use Only) < 0.02 ng/mL (0.0-0.045)
--- NOTE | 2020-12-08 18:28 | RAD REPORT ---
EXAM DESCRIPTION: CT - Chest Abd Pelvis Wo Con - 12/08/2020 6:18 pm CLINICAL HISTORY: Chest and abdomen pain. Abdominal distention;Dyspnea COMPARISON: No comparisons TECHNIQUE: A limited noncontrast study was performed. All CT scans are performed using dose optimization technique as appropriate and may include automated exposure control or mA/KV adjustment according to patient size. FINDINGS: Mild areas of atelectasis are present in the lungs. No focal infiltrate seen.No pleural or pericardial effusion.No intrathoracic adenopathy. The liver is shrunken and nodular compatible with cirrhosis. 16 mm low-density lesion in the lateral right lobe liver is noted, nonspecific. The spleen is normal in size. Cholelithiasis. The pancreas, a drenal glands and kidneys are within normal limits. Large volume of ascites is seen. No bowel obstruction evident. Sigmoid diverticulosis coli without di verticulitis. Moderate stool is present in the colon. No worrisome osseous finding. IMPRESSION: Advanced liver cirrhosis with nonspecific 16 mm low-density lesion in the right lobe of the liver. Large volume of ascites. Cholelithiasis.
--- NOTE | 2020-12-08 18:37 | EDPHYS ---
Physician Documentation [facility] Name: Sindy Palmer Age: 54 yrs Sex: Female : 1965 Arrival Date: 12/08/2020 Time: 16:35 Bed 25 Private MD: ED Physician Levi Hall HPI: 12/08 17:24 This 54 yrs old Female presents to ER via EMS with complaints of General bradford Weakness. 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 - Social history:: Smoking status: Patient denies any tobacco usage or history of. ROS: 17:25 Constitutional: Negative for fever, chills, and weight loss, Eyes: Negative for injury, bradford pain, redness, and discharge, ENT: Negative for injury, pain, and discharge, Neck: Negative for injury, pain, and swelling, Cardiovascular: Negative for chest pain, palpitations, and edema, Respiratory: Negative for shortness of breath, cough, wheezing, and pleuritic chest pain, Back: Negative for injury and pain, : Negative for injury, bleeding, discharge, and swelling, MS/Extremity: Negative for injury and deformity, Neuro: Negative for headache, weakness, numbness, tingling, and seizure, Psych: Negative for depression, anxiety, suicide ideation, homicidal ideation, and hallucinations, Allergy/Immunology: Negative for hives, rash, and allergies, Endocrine: Negative for neck swelling, polydipsia, polyuria, polyphagia, and marked weight changes, Hematologic/Lymphatic: Negative for swollen nodes, abnormal bleeding, and unusual bruising. 17:25 Abdomen/GI: Positive for abdominal pain, nausea, abdominal distension, of the right upper quadrant, left upper quadrant, right lower quadrant and left lower quadrant. Exam: 17:25 Constitutional: This is a well developed, well nourished patient who is awake, alert, bradford and in no acute distress. Head/Face: Normocephalic, atraumatic. Eyes: Pupils equal round and reactive to light, extra-ocular motions intact. Lids and lashes normal. Conjunctiva and sclera are non-icteric and not injected. Cornea within normal limits. Periorbital areas with no swelling, redness, or edema. ENT: Nares patent. No nasal discharge, no septal abnormalities noted. Tympanic membranes are normal and external auditory canals are clear. Oropharynx with no redness, swelling, or masses, exudates, or evidence of obstruction, uvula midline. Mucous membranes moist. Neck: Trachea midline, no thyromegaly or masses palpated, and no cervical lymphadenopathy. Supple, full range of motion without nuchal rigidity, or vertebral point tenderness. No Meningismus. Chest/axilla: Normal chest wall appearance and motion. Nontender with no deformity. No lesions are appreciated. Cardiovascular: Regular rate and rhythm with a normal S1 and S2. No gallops, murmurs, or rubs. Normal PMI, no JVD. No pulse deficits. Respiratory: Lungs have equal breath sounds bilaterally, clear to auscultation and percussion. No rales, rhonchi or wheezes noted. No increased work of breathing, no retractions or nasal flaring. Back: No spinal tenderness. No costovertebral tenderness. Full range of motion. MS/ Extremity: Pulses equal, no cyanosis. Neurovascular intact. Full, normal range of motion. Neuro: Awake and alert, GCS 15, oriented to person, place, time, and situation. Cranial nerves II-XII grossly intact. Motor strength 5/5 in all extremities. Sensory grossly intact. Cerebellar exam normal. Normal gait. Psych: Awake, alert, with orientation to person, place and time. Behavior, mood, and affect are within normal limits. 17:25 Abdomen/GI: Inspection: distension, that is moderate, Bowel sounds: normal, Palpation: mild abdominal tenderness, in all quadrants, Rectal exam: rectal tone normal, Stool: guaiac positive, trace positive , no melena, Liver: no appreciated palpable abnormalities, Hernia: not appreciated. 18:21 ECG was reviewed by the Attending Physician. bradford Vital Signs: 16:40 BP 122 / 72; Pulse 86; Resp 18; Pulse Ox 100% on R/A; Weight 54.43 kg; Height 5 ft. 3 ld1 in. (160.02 cm); Pain 7/10; 19:30 BP 133 / 84; Pulse 103; Resp 13; Temp 98.1; Pulse Ox 100% on R/A; Pain 7/10; ld1 20:00 BP 119 / 65; Pulse 103; Resp 18; Pulse Ox 100% ; ld1 20:30 BP 119 / 63; Pulse 100; Resp 15; Pulse Ox 100% on R/A; ld1 21:00 BP 115 / 58; Pulse 102; Resp 19; Pulse Ox 100% on R/A; ld1 21:30 BP 115 / 64; Pulse 101; Resp 19; Pulse Ox 100% on R/A; ld1 22:00 BP 109 / 57; Pulse 91; Resp 15; Pulse Ox 98% ; ld1 22:30 BP 120 / 65; Pulse 93; Resp 17; Pulse Ox 95% on R/A; ld1 23:00 BP 120 / 65; Pulse 93; Resp 15; Pulse Ox 97% on R/A; ld1 23:30 BP 114 / 65; Pulse 92; Resp 15; Pulse Ox 96% on R/A; ld1 16:40 Body Mass Index 21.26 (54.43 kg, 160.02 cm) ld1 Procedures: 19:08 Central Line: the site was prepped with Betadine, in sterile fashion, a triple lumen bradford catheter was inserted, in the right femoral vein, in 1 attempts. placement was verified, by blood return, the site was dressed with using sterile technique, the patient tolerated the procedure, well. MDM: 16:55 Patient medically screened. bradford 17:28 Differential Diagnosis altered mental status, sepsis. Differential diagnosis: AAA, bradford appendicitis, bowel obstruction, Cholelithiasis, diverticulitis, gastroesophageal reflux disease, GI Bleed, Hepatitis, non-specific abd pain, Peptic Ulcer Disease, Peritonitis, Pyelonephritis, urinary tract infection. Data reviewed: vital signs, nurses notes, EMS record, lab test result(s), EKG, radiologic studies, CT scan, plain films. Data interpreted: monitor and storage bin tender: rate is 86 beats/min, rhythm is regular, Pulse oximetry: on room air is 100 %. Test interpretation: by ED physician or midlevel provider: ECG, plain radiologic studies. Counseling: I had a detailed discussion with the patient and/or guardian regarding: the historical points, exam findings, and any diagnostic results supporting the discharge/admit diagnosis, lab results, radiology results, the need to transfer to another facility, for higher level of [facility], [facility] does not immediately have the required specialist. 12/08 17:23 Order name: Basic Metabolic Panel; Complete Time: 18:34 [facility] 12/08 17:23 Order name: CBC with Diff; Complete Time: 21:37 [facility] 12/08 17:23 Order name: LFT's; Complete Time: 18:34 [facility] 12/08 17:23 Order name: Magnesium; Complete Time: 18:34 [facility] 12/08 17:23 Order name: NT PRO-BNP; Complete Time: 18:34 [facility] 12/08 17:23 Order name: PT-INR; Complete Time: 18:18 [facility] 12/08 17:23 Order name: Troponin (emerg Dept Use Only); Complete Time: 18:34 [facility] 12/08 17:23 Order name: Lipase; Complete Time: 18:34 [facility] 12/08 17:23 Order name: Type And Screen [facility] 12/08 17:23 Order name: AMMONIA; Complete Time: 18:18 [facility] 12/08 17:23 Order name: Lactate; Complete Time: 18:18 [facility] 12/08 17:23 Order name: XRAY Chest (1 view); Complete Time: 19:24 [facility] 12/08 17:24 Order name: CT Chest Abdomen Pelvis W/O Contrast; Complete Time: 18:34 [facility] 12/08 18:56 Order name: Packed RBCs (Additional Unit) [facility] 12/08 19:12 Order name: Fresh Frozen Plasma [facility] 12/08 19:25 Order name: COVID-19 : Document "Date of Symptom Onset" if Symptomatic. [facility] 12/08 20:14 Order name: CBC Smear Scan; Complete Time: 21:37 [facility] 12/08 20:22 Order name: SARS-COV-2 RT PCR; Complete Time: 20:28 [facility] 12/08 17:23 Order name: EKG; Complete Time: 17:24 [facility] 12/08 17:23 Order name: Cardiac monitoring; Complete Time: 17:25 [facility] 12/08 17:23 Order name: EKG - Nurse/Tech; Complete Time: 18:14 [facility] 12/08 17:23 Order name: IV Saline Lock; Complete Time: 17:25 [facility] 12/08 17:23 Order name: Labs collected and sent; Complete Time: 18:14 [facility] 12/08 17:23 Order name: O2 Per Protocol; Complete Time: 17:25 [facility] 12/08 17:23 Order name: O2 Sat Monitoring; Complete Time: 17:25 [facility] 12/08 17:23 Order name: Abreu; Complete Time: 18:14 [facility] 12/08 17:23 Order name: IV Saline Lock - Large Bore; Complete Time: 17:25 [facility] 12/08 18:21 Order name: Transfuse; Complete Time: 19:46 [facility] 12/08 18:27 Order name: Central Line Kit; Complete Time: 18:34 [facility] EC:21 Rate is 106 beats/min. Rhythm is regular. QRS Cochran is Normal. OK interval is normal. bradford QRS interval is normal. QT interval is normal. No Q waves. T waves are Normal. No ST changes noted. Clinical impression: Sinus tachycardia. Interpreted by me. Reviewed by me. Administered Medications: 19:20 Drug: ProTONIX (pantoprazole) 40 mg Route: IVP; Site: left forearm; ld1 20:39 Follow up: Response: No adverse reaction ld1 19:20 Drug: ProTONIX (pantoprazole) 8 mg/hr Route: IV; Rate: 25 ml/hr; Site: left forearm; ld1 20:38 Follow up: Response: No adverse reaction; IV Status: Infusion continued ld1 19:20 Drug: SandoSTATIN (octreotide) 50 mcg Route: IV; Rate: calculated rate; Site: right ld1 femoral; 20:38 Follow up: Response: No adverse reaction; IV Status: Infusion continued ld1 19:20 Drug: SandoSTATIN (octreotide) 25 mcg/h Route: IV; Rate: calculated rate; Site: right ld1 femoral; 20:38 Follow up: Response: No adverse reaction; IV Status: Infusion continued ld1 19:21 Drug: fentaNYL (PF) 25 mcg Route: IVP; Site: left forearm; ld1 20:40 Follow up: Response: No adverse reaction ld1 19:21 Drug: Zofran (Ondansetron) 4 mg Route: IVP; Site: left forearm; ld1 20:40 Follow up: Response: No adverse reaction ld1 19:21 Drug: NS 0.9% 1000 ml Route: IV; Rate: 100 ml/hr; Site: left forearm; ld1 20:39 Follow up: Response: No adverse reaction; IV Status: Infusion continued ld1 19:21 Drug: NS 0.9% 500 ml Route: IV; Rate: bolus; Site: left forearm; ld1 20:39 Follow up: Response: No adverse reaction; IV Status: Completed infusion ld1 19:21 Drug: Vitamin K1 (phytonadione) 5 mg Route: Sub-Q; Site: left upper arm; ld1 20:39 Follow up: Response: No adverse reaction ld1 19:22 Drug: ProTONIX (pantoprazole) 40 mg Route: IVP; Site: left forearm; ld1 20:41 Follow up: Response: No adverse reaction ld1 19:22 Drug: Rocephin (cefTRIAXone) 1 grams Route: IV; Rate: per protocol; Site: left forearm; ld1 20:40 Follow up: Response: No adverse reaction; IV Status: Completed infusion ld1 Disposition Summary: 12/08/20 18:37 Transfer Ordered Reason: Higher level of care bradford Condition: Serious bradford Problem: new bradford Symptoms: have improved bradford Transfer Location: [facility](12/08/20 19:26) bradford Accepting Physician: to [facility](12/09/20 00:33) ld1 Diagnosis - GI Bleed/ Gastrointestinal hemorrhage, unspecified bradford - Acute posthemorrhagic anemia bradford - Alcoholic cirrhosis of liver with ascites bradford - Hypo-osmolality and hyponatremia bradford - Calculus of gallbladder without cholecystitis bradford Forms: - Medication Reconciliation Form bradford - SBAR form bradford Signatures: Dispatcher [employer] EDLevi Mcghee MD MD cha Dibbern, Lauren RN RN ld1 Corrections: (The following items were deleted from the chart) 19:19 17:31 CORONAVIRUS+MR.LAB.BRZ ordered. EDMS EDMS 19:26 18:37 to [facility] bradford bradford 19:26 18:37 [facility] bradford bradford 20:13 19:25 CORONAVIRUS ordered. EDMS EDMS 20:30 19:26 to [facility] bradford bradford 20:38 18:22 BB Add On+BB.LAB.BRZ ordered. EDMS EDMS 12/09 00:33 07 20:30 to [facility] bradford ld1
--- NOTE | 2020-12-08 18:37 | ER ---
Nurse's Notes [facility] Name: Sindy Palmer Age: 54 yrs Sex: Female : 1965 Arrival Date: 12/08/2020 Time: 16:35 Bed 25 Private MD: Diagnosis: GI Bleed/ Gastrointestinal hemorrhage, unspecified;Acute posthemorrhagic anemia;Alcoholic cirrhosis of liver with ascites;Hypo-osmolality and hyponatremia;Calculus of gallbladder without cholecystitis Presentation: 12/08 16:40 Chief complaint: EMS states: generalized weakness, distended abdomen. Pt reports living ld1 at home alone without anyone to take care of her. She has been weak for two weeks and has not been getting out of bed. Coronavirus screen: At this time, the client does not indicate any symptoms associated with coronavirus-19. Ebola Screen: No symptoms or risks identified at this time. Initial Sepsis Screen: Does the patient meet any 2 criteria? No. Patient's initial sepsis screen is negative. Does the patient have a suspected source of infection? No. Patient's initial sepsis screen is negative. Risk Assessment: Do you want to hurt yourself or someone else? Patient reports no desire to harm self or others. Onset of symptoms was December 08, 2020 at 16:42. 16:40 Method Of Arrival: EMS: [facility] ld1 16:40 Acuity: ELIECER 3 ld1 17:21 Acuity: ELIECER 2 iw Triage Assessment: 16:42 General: Appears in no apparent distress. uncomfortable, Behavior is calm, cooperative, ld1 appropriate for age. Pain: Complains of pain in abdomen Pain does not radiate. Pain currently is 7 out of 10 on a pain scale. Quality of pain is described as heavy, Pain began three weeks ago.\\E\\ Is continuous. EENT: No signs and/or symptoms were reported regarding the EENT system. Neuro: Level of Consciousness is awake, alert, obeys commands, Oriented to person, place, time, situation. Cardiovascular: Capillary refill < 3 seconds Patient's skin is warm and dry. Rhythm is regular. Respiratory: Airway is patent Respiratory effort is even, unlabored, Respiratory pattern is regular, symmetrical. GI: Abdomen is distended, Reports lower abdominal pain, upper abdominal pain. : No signs and/or symptoms were reported regarding the genitourinary system. Derm: No signs and/or symptoms reported regarding the dermatologic system. Musculoskeletal: No signs and/or symptoms reported regarding the musculoskeletal system. DRAW HAND: 16:42 LMP N/A - Post-menopause ld1 Historical: - Allergies: 16:42 No Known Allergies; ld1 - Home Meds: 16:42 Keppra Oral [Active]; ld1 - PMHx: 16:42 Seizures; ld1 - Immunization history:: Adult Immunizations up to date. - Social history:: Smoking status: Patient denies any tobacco usage or history of. Screenin:44 Abuse screen: Denies threats or abuse. Denies injuries from another. Nutritional ld1 screening: No deficits noted. Tuberculosis screening: No symptoms or risk factors identified. Fall Risk None identified. Assessment: 16:44 Reassessment: See triage assessment. ld1 19:30 Reassessment: Patient appears in no apparent distress at this time. Patient is alert, ld1 oriented x 3, equal unlabored respirations, skin warm/dry/pink. 20:00 Reassessment: Patient appears in no apparent distress at this time. Patient and/or ld1 family updated on plan of care and expected duration. Pain level reassessed. 20:45 Reassessment: Patient appears in no apparent distress at this time. Laying in bed ld1 watching TV. Denies concerns at this time. RR 17. 21:30 Reassessment: Patient appears in no apparent distress at this time. No changes from ld1 previously documented assessment. Patient and/or family updated on plan of care and expected duration. Pain level reassessed. 22:41 Reassessment: Patient appears in no apparent distress at this time. Patient and/or ld1 family updated on plan of care and expected duration. Pain level reassessed. Patient is alert, oriented x 3, equal unlabored respirations, skin warm/dry/pink. Patient denies pain at this time. 23:38 Reassessment: Patient appears in no apparent distress at this time. Patient is alert, ld1 oriented x 3, equal unlabored respirations, skin warm/dry/pink. Vital Signs: 16:40 BP 122 / 72; Pulse 86; Resp 18; Pulse Ox 100% on R/A; Weight 54.43 kg; Height 5 ft. 3 ld1 in. (160.02 cm); Pain 7/10; 19:30 BP 133 / 84; Pulse 103; Resp 13; Temp 98.1; Pulse Ox 100% on R/A; Pain 7/10; ld1 20:00 BP 119 / 65; Pulse 103; Resp 18; Pulse Ox 100% ; ld1 20:30 BP 119 / 63; Pulse 100; Resp 15; Pulse Ox 100% on R/A; ld1 21:00 BP 115 / 58; Pulse 102; Resp 19; Pulse Ox 100% on R/A; ld1 21:30 BP 115 / 64; Pulse 101; Resp 19; Pulse Ox 100% on R/A; ld1 22:00 BP 109 / 57; Pulse 91; Resp 15; Pulse Ox 98% ; ld1 22:30 BP 120 / 65; Pulse 93; Resp 17; Pulse Ox 95% on R/A; ld1 23:00 BP 120 / 65; Pulse 93; Resp 15; Pulse Ox 97% on R/A; ld1 23:30 BP 114 / 65; Pulse 92; Resp 15; Pulse Ox 96% on R/A; ld1 16:40 Body Mass Index 21.26 (54.43 kg, 160.02 cm) ld1 ED Course: 16:35 Patient arrived in ED. ld1 16:40 Ai Judge RN is Primary Nurse. ld1 16:42 Triage completed. ld1 16:42 Arm band placed on right wrist. ld1 16:44 Patient has correct armband on for positive identification. Placed in gown. Bed in low ld1 position. Side rails up X2. patient monitor on. Pulse ox on. NIBP on. 16:44 No provider procedures requiring assistance completed. ld1 16:44 Maintain EMS IV. Dressing intact. Good blood return noted. Site clean \\T\\ dry. Gauge \\T\\ ld 1 site: 18G LAC. 16:55 Levi Hall MD is Attending Physician. [facility] 17:55 Inserted saline lock: 20 gauge in left forearm, using aseptic technique. Blood mt collected. Abreu cath inserted, using sterile technique, 16 Fr., by ED staff, balloon inflated, to gravity drainage, Patient tolerated well. 18:18 CT Chest Abdomen Pelvis W/O Contrast In Process Unspecified. EDMS 18:33 XRAY Chest (1 view) In Process Unspecified. EDMS 18:41 initiated transfer to [facility]. spoke with Trevin Payne. bd 18:51 pt denied due to no beds at this time. bd 18:54 initiated transfer to [facility]. pt denied due to hospital being on saturation, bd per [place]. no other [facility] campus able to provide hepatology. 18:59 initiated transfer to [facility], spoke with Nadia. bd 19:18 initiated a transfer with Rebecca from [facility]. 2 20:37 COVID-19 : Document "Date of Symptom Onset" if Symptomatic. Sent. ld1 20:37 Fresh Frozen Plasma Sent. ld1 20:38 Packed RBCs (Additional Unit) Sent. ld1 21:41 administrative approval given by Rebecca Oakes/ patient has been accepted to [address] pending a bed/ Dr. Mcdonald accepted the patient in transfer/pending a report number. 22:23 patient is going to the [facility] 3rd floor bed 42 at [facility]/ report to be [facility] called to [phone]. 12/09 00:33 Patient transferred, IV remains in place. intact, bleeding controlled, No ld1 redness/swelling at site. Administered Medications: 12/08 19:20 Drug: ProTONIX (pantoprazole) 40 mg Route: IVP; Site: left forearm; ld1 20:39 Follow up: Response: No adverse reaction ld1 19:20 Drug: ProTONIX (pantoprazole) 8 mg/hr Route: IV; Rate: 25 ml/hr; Site: left forearm; ld1 20:38 Follow up: Response: No adverse reaction; IV Status: Infusion continued ld1 19:20 Drug: SandoSTATIN (octreotide) 50 mcg Route: IV; Rate: calculated rate; Site: right ld1 femoral; 20:38 Follow up: Response: No adverse reaction; IV Status: Infusion continued ld1 19:20 Drug: SandoSTATIN (octreotide) 25 mcg/h Route: IV; Rate: calculated rate; Site: right ld1 femoral; 20:38 Follow up: Response: No adverse reaction; IV Status: Infusion continued ld1 19:21 Drug: fentaNYL (PF) 25 mcg Route: IVP; Site: left forearm; ld1 20:40 Follow up: Response: No adverse reaction ld1 19:21 Drug: Zofran (Ondansetron) 4 mg Route: IVP; Site: left forearm; ld1 20:40 Follow up: Response: No adverse reaction ld1 19:21 Drug: NS 0.9% 1000 ml Route: IV; Rate: 100 ml/hr; Site: left forearm; ld1 20:39 Follow up: Response: No adverse reaction; IV Status: Infusion continued ld1 19:21 Drug: NS 0.9% 500 ml Route: IV; Rate: bolus; Site: left forearm; ld1 20:39 Follow up: Response: No adverse reaction; IV Status: Completed infusion ld1 19:21 Drug: Vitamin K1 (phytonadione) 5 mg Route: Sub-Q; Site: left upper arm; ld1 20:39 Follow up: Response: No adverse reaction ld1 19:22 Drug: ProTONIX (pantoprazole) 40 mg Route: IVP; Site: left forearm; ld1 20:41 Follow up: Response: No adverse reaction ld1 19:22 Drug: Rocephin (cefTRIAXone) 1 grams Route: IV; Rate: per protocol; Site: left forearm; ld1 20:40 Follow up: Response: No adverse reaction; IV Status: Completed infusion ld1 Outcome: 18:37 ER care complete, transfer ordered by MD. felder 12/09 00:32 Transferred by ground EMS to [facility]. ld1 Condition: stable Instructed on the need for transfer. 00:33 Patient left the ED. ld1 Signatures: Dispatcher [employer] EDMS Margi Gusman Corey, MD MD cha Williams, Irene, RN RN iw Thompson, Moriah mt Prokisch, Amanda, RN RN 3 Miguel Xiong [facility] Ai Judge RN RN ld1 Corrections: (The following items were deleted from the chart) 12/08 19:19 18:14 CORONAVIRUS+MR.LAB.BRZ drawn and sent. ld1 EDMS 20:38 18:34 BB Add On+BB.LAB.BRZ drawn and sent. ld1 EDMS 23:19 21:00 BP 115 / 58; Pulse 102bpm; Resp 19bpm; Pulse Ox 100% RA; ap3 ap3 23:19 21:30 BP 115 / 64; Pulse 101bpm; Resp 19bpm; Pulse Ox 100% RA; ap3 ap3 23:19 22:00 BP 109 / 57; Pulse 95bpm; Resp 15bpm; Pulse Ox 100%; ap3 ap3 23:19 22:30 BP 119 / 69; Pulse 95bpm; Resp 17bpm; Pulse Ox 100%; ap3 ap3 23:19 23:00 BP 120 / 65; Pulse 93bpm; Resp 15bpm; Pulse Ox 95% RA; ap3 ap3 23:19 19:18 General: Appears in no apparent distress. uncomfortable, slender, unkempt, ap3 Behavior is cooperative, crying, drowsy, ap3 23:19 19:18 Pain: Complains of pain in groin Pain does not radiate. Pain currently is 8 out ap3 of 10 on a pain scale. Quality of pain is described as burning, Pain began three weeks ago ap3 23:19 17:45 Reassessment: Patient and/or family updated on plan of care and expected ap3 duration. Pain level reassessed. Patient is alert, oriented x 3, equal unlabored respirations, skin warm/dry/pink. Notified ERP of vital signs. See MAR for orders ap3 23:19 23:10 Reassessment: Patient appears in no apparent distress at this time. Patient ap3 and/or family updated on plan of care and expected duration. Pain level reassessed. Waiting on transfer, denies concerns at this time. ap3 23:20 17:45 Assisted provider with central line placement. Set up central line tray. in right ap3 femoral. ap3
[2020-12-08] MEDS ORDERED: PANTOPRAZOLE 40 MG INJ ONE (19:07)
[2020-12-08] MEDS ORDERED: FENTANYL CITR 100 MCG/2 ML ONE (19:07)
[2020-12-08] MEDS ORDERED: NA CHLORIDE 0.9% 1,000 ML ONE ×2 (19:07→22:31)
[2020-12-08] MEDS ORDERED: VITAMIN K (ADULT) 10 MG/ML ONE (19:07)
[2020-12-08] MEDS ORDERED: ONDANSETRON 4 MG/2 ML VIAL ONE (19:07)
[2020-12-08] MEDS ORDERED: NA CHLORIDE 0.9% 500 ML ONE ×2 (19:08→19:50)
[2020-12-08] MEDS ORDERED: OCTREOTIDE ACETATE 100 MCG/ML ONE (19:08)
[2020-12-08] MEDS ORDERED: CEFTRIAXONE/SWI 1gm 1 GM/10 ML SYR ONE (19:08)
--- NOTE | 2020-12-08 19:12 | RAD REPORT ---
EXAM DESCRIPTION: RAD - Chest Single View - 12/08/2020 6:33 pm CLINICAL HISTORY: ABDOMINAL DISTENTION Chest pain. COMPARISON: Chest Single View dated 04/01/2018; Chest Single View dated 10/18/2017 FINDINGS: Portable technique limits examination quality. The lungs are underinflated but grossly clear. The heart is normal in size. Chronic appearing deformi ty of the right shoulder. IMPRESSION: Underinflated lungs.
[2020-12-08 21:21] LABS: Anisocytosis 2+; Blood Morphology Comment NOTED (NOT SEEN); Platelet Estimate ADEQ; Polychromasia 1+; White Blood Cell Scan OK (OK)
[2020-12-09 00:50] VITALS: TEMP 98.1
[2020-12-09 01:13] VITALS: BP 114/65; O2SAT 96
--- NOTE | 2020-12-09 16:11 | EKG ---
Test Date: 2020-12-08 Test Time: 18:05:52 Compliance Review Officer: LEN MEASUREMENT RESULTS: Intervals: Rate: 106 AR: 118 QRSD: 62 QT: 310 QTc: 411 [place]: P: 46 AR: 118 QRS: -14 T: 0 INTERPRETIVE STATEMENTS: Sinus tachycardia Inferior infarct, age undetermined Cannot rule out Anterior infarct, age undetermined Abnormal ECG Compared to ECG 04/01/2018 19:06:06 Sinus rhythm no longer present Myocardial infarct finding still present Electronically Signed On 12-09-20 16:08:38 CDT by Rg Olvera
== END 2020-12-09 00:33 | disposition short-term general hospital (02) ==
LOC: ER 16:32
PROC: 30233K1 Transfusion of Nonautologous Frozen Plasma into Peripheral Vein, Percutaneous Approach (ICD-10-PCS; principal; 2020-12-09)
PROC: 30233N1 Transfusion of Nonautologous Red Blood Cells into Peripheral Vein, Percutaneous Approach (ICD-10-PCS; 2020-12-09)
PROC: 06HM33Z Insertion of Infusion Device into Right Femoral Vein, Percutaneous Approach (ICD-10-PCS; 2020-12-09)
DX: D62 Acute posthemorrhagic anemia (principal); K70.31 Alcoholic cirrhosis of liver with ascites; E87.1 Hypo-osmolality and hyponatremia; K80.20 Calculus of gallbladder without cholecystitis without obstruction; G40.909 Epilepsy, unspecified, not intractable, without status epilepticus; Z20.822 Contact with and (suspected) exposure to COVID-19
CPT/HCPCS: 36415; 51702; 71045; 71250; 74176; 80048; 80076; 82140; 83605; 83690; 83735; 83880; 84484; 85025; 85610; 86850; 86900; 86901; 93005; 96372; 99285; C9113; J0696; J2354; J2405; J3010; J3430; J7030; J7040; J7050; P9016; P9059; U0003